=== PATIENT | female | born 1945 | race Caucasian/White ===

== ENCOUNTER 2016-05-24 16:29 | Emergency (ER) | payer MEDICARE, MEDICAID ==
[~2016-05-24] VITALS: Ht 167.6 cm; Wt 63.5 kg
[~2016-05-24 16:29] MED LIST: AML5T PO; IBUP400T21 PO; OMEP20TA44 PO
[2016-05-24 16:45] VITALS: BP 131/79
== END 2016-05-24 21:50 | disposition left against medical advice (07) ==
LOC: ER 16:32
DX: R10.84 Generalized abdominal pain (principal); R11.2 Nausea with vomiting, unspecified; Z53.21 Procedure and treatment not carried out due to patient leaving prior to being seen by health care provider
CPT/HCPCS: 36415; 93005

== ENCOUNTER 2017-02-28 01:18 | Emergency (ER) | payer MEDICARE, MEDICAID ==
[~2017-02-28] VITALS: Ht 167.6 cm; Wt 63.5 kg
[2017-02-28] MEDS ORDERED: ONDANSETRON HCL 4 MG/2 ML VIAL IV ONE ×2 (02:00→04:15)
[2017-02-28] MEDS ORDERED: cloNIDine HCL 0.1 MG TAB PO ONE (02:00)
[2017-02-28 02:14] LABS: Basophils # (auto) 0 uL; Basophils % (auto) 0.6 % (0.0-2.0); Eosinophils # (auto) 0.1 uL; Eosinophils % (auto) 1.7 % (0.0-7.0); Hematocrit 41.1 % (36.0-46.0); Lymphocytes # (auto) 1.1 uL; Lymphocytes % (auto) 21.6 % (10.0-50.0); Mean Corpuscular Hemoglobin 31.8 pg (28.0-32.0); Mean Corpuscular Volume 93.5 fL (80.0-100.0); Mean Platelet Volume 7.4 fL (6.9-10.8); Monocytes # (auto) 0.4 uL; Monocytes % (auto) 7.6 % (0.0-12.0); Neutrophils # (auto) 3.5 uL; Neutrophils % (auto) 68.5 % (37.0-80.0); Nucleated Red Blood Cells % 0.1 %; Platelet Count (auto) 228 10^3/uL (140-450); Red Cell Distribution Width 13.5 % (11.8-14.3); White Blood Cell 5.1 10^3/uL (4.4-10.8)
[2017-02-28] MEDS ORDERED: PROMETHAZINE HCL 25 MG/ML 1ML ONE (02:22)
[2017-02-28] MEDS ORDERED: PANTOPRAZOLE 40 MG/10 ML VIAL IV ONE (02:30)
[2017-02-28] MEDS ORDERED: PROMETHAZINE HCL 25 MG/ML 1ML IV ONE (02:30)
[2017-02-28 02:33] LABS: Albumin 3.7 g/dL (3.4-5.0); BUN/Creatinine Ratio 25.3; Calcium 9.5 mg/dL (8.5-10.1); Magnesium 2.3 mg/dL (1.6-2.6); Potassium 3.7 mmol/L (3.5-5.1)
[2017-02-28 02:38] LABS: Bilirubin, Total 0.3 mg/dL (0.2-1.0); Total Protein 7.8 g/dL (6.4-8.2)
[2017-02-28] MEDS ORDERED: NALBUPHINE HCL 10 MG/1ml INJECTION IV ONE (04:15)
[2017-02-28 04:19] LABS: Amylase 73 U/L (25-115)
[2017-02-28 04:22] VITALS: BP 131/76
== END 2017-02-28 05:40 | disposition home or self-care (01) ==
LOC: ER 01:19
DX: K29.70 Gastritis, unspecified, without bleeding (principal); F41.9 Anxiety disorder, unspecified; I10 Essential (primary) hypertension; Z90.710 Acquired absence of both cervix and uterus; Z90.89 Acquired absence of other organs; Z88.6 Allergy status to analgesic agent
CPT/HCPCS: 36415; 74176; 80053; 82150; 83690; 83735; 84484; 85025; 96374; 96375; 96376; 99285; C9113; J2300; J2405; J2550

== ENCOUNTER 2017-04-24 17:02 | Inpatient (IN) | payer MEDICARE, MEDICAID ==
[~2017-04-24] VITALS: Ht 167.6 cm; Wt 70.0 kg
[2017-04-24] MEDS ORDERED: SODIUM CHLORIDE 0.9% 500 ML IVB ONE (17:54)
[2017-04-24] MEDS ORDERED: ONDANSETRON HCL 4 MG/2 ML VIAL IV ONE ×2 (18:00→18:15)
[2017-04-24] MEDS ORDERED: MORPHINE SULF INJ 2 MG/ML SYRINGE 1ML IV ONE (18:15)
[2017-04-24] MEDS ORDERED: MEPERIDINE HCL (25 MG/ML) 1ML VIAL IV ONE (18:30)
[2017-04-24 18:59] LABS: Basophils # (auto) 0.1 uL; Basophils % (auto) 0.5 % (0.0-2.0); Eosinophils # (auto) 0 uL; Hematocrit 44.5 % (36.0-46.0); Lymphocytes # (auto) 0.7 uL; Lymphocytes % (auto) 5.5 % (10.0-50.0); Mean Corpuscular Hemoglobin 31.7 pg (28.0-32.0); Mean Corpuscular Hgb Conc. 33.8 g/dL (32.0-36.0); Mean Corpuscular Volume 93.9 fL (80.0-100.0); Monocytes # (auto) 0.7 uL; Monocytes % (auto) 5.6 % (0.0-12.0); Neutrophils # (auto) 10.6 uL; Neutrophils % (auto) 88.4 % (37.0-80.0); Nucleated Red Blood Cells % 0.1 %; Platelet Count (auto) 250 10^3/uL (140-450); Red Blood Cells 4.74 10^6/uL (4.0-5.20); Red Cell Distribution Width 13.7 % (11.8-14.3)
[2017-04-24 19:16] LABS: Amylase 69 U/L (25-115); Lipase 90 U/L (73-393)
[2017-04-24 19:38] LABS: Alanine Aminotransferase 33 U/L (13-56); Albumin 4.3 g/dL (3.4-5.0); Alkaline Phosphatase 84 U/L (45-117); Anion Gap 11 (5-15); Aspartate Aminotransferase 28 U/L (15-37); BUN/Creatinine Ratio 31.2; Bilirubin, Total 1.1 mg/dL (0.2-1.0); Blood Urea Nitrogen 29 mg/dL (7-18); Calcium 9.7 mg/dL (8.5-10.1); Carbon Dioxide 25 mmol/L (21-32); Chloride 96 mmol/L (98-107); GFR African American 76 mL/min; GFR Non-African American 63 mL/min; Glucose 153 mg/dL (74-106); Magnesium 2.5 mg/dL (1.6-2.6); Potassium 3.7 mmol/L (3.5-5.1); Sodium 132 mmol/L (136-145)
[2017-04-24 19:49] LABS: INR 1.01 (0.9-1.15); Partial Thromboplastin Time 27.8 sec (22.64-33.71)
[2017-04-24] MEDS ORDERED: TEMAZEPAM 15 MG CAP PO PRN (21:30)
[2017-04-24] MEDS ORDERED: NITROGLYCERIN 0.4 MG SL TAB SL PRN (21:30)
[2017-04-24] MEDS ORDERED: SODIUM CHLORIDE 0.9% 500 ML IV ONE (21:30)
[2017-04-24] MEDS ORDERED: MORPHINE SULF INJ 2 MG/ML SYRINGE 1ML IV PRN (21:30)
[2017-04-24] MEDS ORDERED: PANTOPRAZOLE 40 MG/10 ML VIAL IV ONE (21:30)
[2017-04-24] MEDS: MEPERIDINE HCL (25 MG/ML) 1ML VIAL IV PRN (21:46)
[2017-04-24] MEDS: ONDANSETRON HCL 4 MG/2 ML VIAL IV PRN (21:46)
[2017-04-24] MEDS: SODIUM CHLORIDE 0.9% 1,000 ML IV SCH (21:57)
[2017-04-24] MEDS: cloNIDine HCL 0.1 MG TAB PO PRN (21:57)
[2017-04-24 22:54] LABS: Urine Bacteria FEW /hpf (None Seen); Urine Blood Negative /uL (Negative); Urine Specific Gravity 1.015 (1.001-1.035); Urine WBC 2 /hpf (0 - 5)
[2017-04-24] MEDS ORDERED: LABETALOL HCL 5 MG/ML ML 20ML VIAL IV ONE (23:30)
[2017-04-25] VITALS (7 sets, daily range): BP systolic 166–208; BP diastolic 88–106
[2017-04-25] MEDS ORDERED: hydrALAZINE HCL 20 MG/ML VL IV ONE ×2 (01:15→06:30)
[2017-04-25] MEDS: ONDANSETRON HCL 4 MG/2 ML VIAL IV PRN ×5 (02:21→19:49)
[2017-04-25] MEDS: MEPERIDINE HCL (25 MG/ML) 1ML VIAL IV PRN ×5 (02:21→19:49)
[2017-04-25] MEDS: HYDROcodone-ACET 5/325MG TAB PO PRN ×2 (04:10→07:47)
[2017-04-25] MEDS: cloNIDine HCL 0.1 MG TAB PO PRN ×2 (04:35→10:26)
[2017-04-25 07:19] LABS: Basophils # (auto) 0 uL; Basophils % (auto) 0.2 % (0.0-2.0); Eosinophils # (auto) 0 uL; Hematocrit 42.2 % (36.0-46.0); Hemoglobin 14.5 g/dL (12.2-16.2); Lymphocytes # (auto) 0.6 uL; Lymphocytes % (auto) 6.2 % (10.0-50.0); Mean Corpuscular Hgb Conc. 34.3 g/dL (32.0-36.0); Mean Corpuscular Volume 93.3 fL (80.0-100.0); Monocytes # (auto) 0.4 uL; Monocytes % (auto) 4.5 % (0.0-12.0); Neutrophils # (auto) 8.1 uL; Neutrophils % (auto) 89.1 % (37.0-80.0); Platelet Count (auto) 227 10^3/uL (140-450); Red Blood Cells 4.52 10^6/uL (4.0-5.20); Red Cell Distribution Width 13.6 % (11.8-14.3); White Blood Cell 9.1 10^3/uL (4.4-10.8)
[2017-04-25 07:33] LABS: BUN/Creatinine Ratio 37.7; Bilirubin, Total 0.8 mg/dL (0.2-1.0); Calcium 9.3 mg/dL (8.5-10.1); Potassium 3.9 mmol/L (3.5-5.1); Total Protein 7.5 g/dL (6.4-8.2)
[2017-04-25] MEDS: SODIUM CHLORIDE 0.9% 1,000 ML IV SCH ×2 (09:03→14:55)
[2017-04-25] MEDS ORDERED: GASTROGRAFIN 120 ML SOL ONE ×2 (09:18→15:33)
[2017-04-25] MEDS: ENOXAPARIN SOD 40 MG/0.4 ML SYRINGE SC SCH (09:24)
[2017-04-25] MEDS: PANTOPRAZOLE 40 MG/10 ML VIAL IV SCH (09:25)
[2017-04-25] MEDS ORDERED: amLODIPine BESYLATE 5 MG TAB PO SCH (10:00)
[2017-04-25] MEDS ORDERED: MEPERIDINE HCL (25 MG/ML) 1ML VIAL IV ONE (11:30)
[2017-04-25] MEDS ORDERED: PROMETHAZINE HCL 25 MG/ML 1ML IV ONE (11:30)
[2017-04-25] MEDS ORDERED: LABETALOL HCL 5 MG/ML ML 20ML VIAL IV ONE (14:00)
[2017-04-25] MEDS: LABETALOL HCL 5 MG/ML ML 20ML VIAL IV PRN ×3 (16:35→22:51)
[2017-04-25] MEDS: PROMETHAZINE HCL 25 MG/ML 1ML IV PRN (18:03)
[2017-04-25] MEDS: LORazepam 2MG/ML-1ML VIAL IV PRN (22:26)
[2017-04-26 00:10] VITALS: BP 168/103
[2017-04-26] MEDS: MEPERIDINE HCL (25 MG/ML) 1ML VIAL IV PRN ×4 (01:23→21:04)
[2017-04-26] MEDS: PROMETHAZINE HCL 25 MG/ML 1ML IV PRN ×2 (01:23→09:00)
[2017-04-26 01:50] VITALS: BP 170/104
[2017-04-26] MEDS: SODIUM CHLORIDE 0.9% 1,000 ML IV SCH ×2 (02:30→16:25)
[2017-04-26] MEDS ORDERED: cloNIDine HCL 0.1 MG TAB PO ONE (02:45)
[2017-04-26] MEDS: LABETALOL HCL 5 MG/ML ML 20ML VIAL IV PRN ×4 (04:37→18:15)
[2017-04-26 05:00] VITALS: BP 129/75
[2017-04-26 05:53] LABS: Hematocrit 47.4 % (36.0-46.0); Hemoglobin 16.1 g/dL (12.2-16.2); Mean Corpuscular Hemoglobin 31.9 pg (28.0-32.0); Mean Corpuscular Hgb Conc. 34.1 g/dL (32.0-36.0); Mean Corpuscular Volume 93.8 fL (80.0-100.0); Platelet Count (auto) 264 10^3/uL (140-450); Red Blood Cells 5.05 10^6/uL (4.0-5.20); Red Cell Distribution Width 13.5 % (11.8-14.3); White Blood Cell 2.2 10^3/uL (4.4-10.8)
[2017-04-26 06:04] LABS: Band Neutrophils % (manual) 0; Basophils % (manual) 0 (0.0-2.0); Blast Cells 0; Eosinophils % (manual) 0 (0-7); Metamyelocytes % 0; Myelocytes % 0; Promyelocytes % 0; Reactive Lymphocytes 0
[2017-04-26 06:16] LABS: BUN/Creatinine Ratio 52.1; Calcium 9.1 mg/dL (8.5-10.1); Magnesium 2.9 mg/dL (1.6-2.6)
[2017-04-26 09:00] VITALS: BP 160/98
[2017-04-26] MEDS: PANTOPRAZOLE 40 MG/10 ML VIAL IV SCH (09:01)
[2017-04-26] MEDS ORDERED: GASTROGRAFIN 120 ML SOL ONE (09:01)
[2017-04-26] MEDS: ENOXAPARIN SOD 40 MG/0.4 ML SYRINGE SC SCH (09:01)
[2017-04-26] MEDS: ONDANSETRON HCL 4 MG/2 ML VIAL IV PRN ×2 (10:45→17:24)
[2017-04-26] MEDS: LORazepam 2MG/ML-1ML VIAL IV PRN ×2 (10:54→17:24)
[2017-04-26 11:33] LABS: Lymphocytes % (manual) 13 (10.0-50.0); Monocytes % (manual) 21 (0-12)
[2017-04-26 13:00] VITALS: BP 159/95
[2017-04-26 22:00] VITALS: BP 130/54
[2017-04-26] MEDS ORDERED: METOPROLOL TARTRATE 1MG/1ML-5ML VIAL IV ONE (22:30)
[2017-04-27] VITALS (9 sets, daily range): BP systolic 107–167; BP diastolic 61–87
[2017-04-27] MEDS: LORazepam 2MG/ML-1ML VIAL IV PRN (02:13)
[2017-04-27] MEDS: SODIUM CHLORIDE 0.9% 1,000 ML IV SCH (03:30)
[2017-04-27] MEDS: MEPERIDINE HCL (25 MG/ML) 1ML VIAL IV PRN ×2 (05:37→10:11)
[2017-04-27 06:33] LABS: Hematocrit 45.3 % (36.0-46.0); Hemoglobin 15.4 g/dL (12.2-16.2); Mean Corpuscular Hemoglobin 32.1 pg (28.0-32.0); Mean Corpuscular Volume 94.5 fL (80.0-100.0); Platelet Count (auto) 260 10^3/uL (140-450); Red Cell Distribution Width 14.1 % (11.8-14.3)
[2017-04-27 06:41] LABS: Calcium 9.1 mg/dL (8.5-10.1); Potassium 3.9 mmol/L (3.5-5.1)
[2017-04-27 06:45] LABS: Basophils % (manual) 0 (0.0-2.0); Blast Cells 0; Metamyelocytes % 0; Myelocytes % 0; Promyelocytes % 0; Reactive Lymphocytes 0
[2017-04-27 08:17] LABS: Band Neutrophils % (manual) 12; Eosinophils % (manual) 1 (0-7); Lymphocytes % (manual) 7 (10.0-50.0); Monocytes % (manual) 27 (0-12)
[2017-04-27] MEDS: ENOXAPARIN SOD 40 MG/0.4 ML SYRINGE SC SCH (10:10)
[2017-04-27] MEDS: PANTOPRAZOLE 40 MG/10 ML VIAL IV SCH (10:10)
[2017-04-27] MEDS ORDERED: fentaNYL CITRATE 100 MCG/2 ML VL ONE ×2 (11:09→13:22)
[2017-04-27] MEDS ORDERED: ETOMIDATE (2MG/ML) 20ML VIAL IV ONE (11:09)
[2017-04-27] MEDS ORDERED: HYDROmorphone HCL 2 MG/ML VL ONE ×2 (11:09→13:52)
[2017-04-27] MEDS ORDERED: MIDAZOLAM HCL 1MG/1ML-2 ML VIAL ONE (11:09)
[2017-04-27] MEDS ORDERED: ceFAZolin 1GM/50ML 50 ML IV ONE (12:45)
[2017-04-27] MEDS ORDERED: DEXAMETHASONE SOD PHOS 10MG/1ML VIAL INJ IV ONE (12:45)
[2017-04-27] MEDS ORDERED: ROCURONIUM 10MG/ML 10ML VIAL IV ONE (13:08)
[2017-04-27] MEDS ORDERED: D5W/SOD CHL 0.45%/KCL 20MEQ 1,000 ML IV ONE (14:15)
[2017-04-27] MEDS: SOD CHL 0.45% 1,000 ML IV SCH (14:15)
[2017-04-27] MEDS ORDERED: LABETALOL HCL 5 MG/ML 4ML SYRINGE IV PRN (14:30)
[2017-04-27] MEDS ORDERED: HYDROmorphone HCL 2 MG/ML VL IV PRN (14:30)
[2017-04-27] MEDS ORDERED: KETOROLAC TROMETH 30 MG/ML 1ML VIAL IV ONE (14:30)
[2017-04-27] MEDS ORDERED: MORPHINE SULF INJ 2 MG/ML SYRINGE 1ML IV PRN ×2 (14:30)
[2017-04-27] MEDS ORDERED: ePHEDrine SULFATE 50 MG/ML AMP IV PRN (14:30)
[2017-04-27] MEDS ORDERED: ONDANSETRON HCL 4 MG/2 ML VIAL IV ONE (14:30)
[2017-04-27] MEDS ORDERED: ALBUMIN 25% 50 ML IV ONE (14:46)
[2017-04-27] MEDS ORDERED: MORPHINE SULF INJ 2 MG/ML SYRINGE 1ML IV ONE (16:00)
[2017-04-27 17:36] LABS: Hematocrit 44.1 % (36.0-46.0); Hemoglobin 14.5 g/dL (12.2-16.2); Mean Corpuscular Hemoglobin 31.1 pg (28.0-32.0); Mean Corpuscular Hgb Conc. 32.9 g/dL (32.0-36.0); Mean Corpuscular Volume 94.5 fL (80.0-100.0); Platelet Count (auto) 166 10^3/uL (140-450); Red Blood Cells 4.67 10^6/uL (4.0-5.20); Red Cell Distribution Width 14.2 % (11.8-14.3); White Blood Cell 6.1 10^3/uL (4.4-10.8)
[2017-04-27 17:44] LABS: Basophils % (manual) 0 (0.0-2.0); Blast Cells 0; Eosinophils % (manual) 0 (0-7); Metamyelocytes % 0; Myelocytes % 0; Promyelocytes % 0; Reactive Lymphocytes 0
[2017-04-27 19:38] LABS: Band Neutrophils % (manual) 5; Lymphocytes % (manual) 17 (10.0-50.0); Monocytes % (manual) 12 (0-12)
[2017-04-27] MEDS: MIDAZOLAM HCL 1MG/1ML-2 ML VIAL IV PRN ×2 (20:30→20:50)
[2017-04-27] MEDS: ALBUMIN 25% 50 ML IV SCH (22:00)
[2017-04-27] MEDS: MIDAZOLAM DRIP 50 mg/50mL 50 ML IV SCH (23:07)
[2017-04-28] VITALS (44 sets, daily range): BP systolic 109–189; BP diastolic 50–98
[2017-04-28] MEDS: MIDAZOLAM DRIP 50 mg/50mL 50 ML IV SCH ×3 (02:39→20:00)
[2017-04-28] MEDS: SOD CHL 0.45% 1,000 ML IV SCH ×3 (03:35→23:40)
[2017-04-28 04:36] LABS: Basophils # (auto) 0 uL; Eosinophils # (auto) 0 uL; Hematocrit 34.1 % (36.0-46.0); Hemoglobin 11.6 g/dL (12.2-16.2); Lymphocytes # (auto) 0.3 uL; Mean Corpuscular Hemoglobin 31.9 pg (28.0-32.0); Mean Corpuscular Hgb Conc. 33.9 g/dL (32.0-36.0); Mean Corpuscular Volume 94.1 fL (80.0-100.0); Monocytes # (auto) 0.4 uL; Monocytes % (auto) 8.4 % (0.0-12.0); Neutrophils # (auto) 3.8 uL; Neutrophils % (auto) 85.6 % (37.0-80.0); Nucleated Red Blood Cells % 0.1 %; Platelet Count (auto) 179 10^3/uL (140-450); Red Blood Cells 3.63 10^6/uL (4.0-5.20); White Blood Cell 4.4 10^3/uL (4.4-10.8)
[2017-04-28 04:47] LABS: BUN/Creatinine Ratio 60.9; Calcium 8.3 mg/dL (8.5-10.1); Potassium 3.9 mmol/L (3.5-5.1)
[2017-04-28] MEDS: ALBUMIN 25% 50 ML IV SCH ×3 (05:27→22:09)
[2017-04-28] MEDS: ENOXAPARIN SOD 40 MG/0.4 ML SYRINGE SC SCH (10:11)
[2017-04-28] MEDS: PANTOPRAZOLE 40 MG/10 ML VIAL IV SCH (10:11)
[2017-04-28] MEDS ORDERED: MORPHINE SULFATE 4 MG/ML SYR/VIAL IV PRN (19:30)
[2017-04-28] MEDS: LABETALOL HCL 5 MG/ML ML 20ML VIAL IV PRN (20:49)
[2017-04-29] VITALS (89 sets, daily range): BP systolic 124–192; BP diastolic 8–95
[2017-04-29] MEDS: MIDAZOLAM DRIP 50 mg/50mL 50 ML IV SCH ×2 (00:22→21:59)
[2017-04-29] MEDS: LABETALOL HCL 5 MG/ML ML 20ML VIAL IV PRN ×3 (00:31→09:49)
[2017-04-29 04:14] LABS: Hematocrit 33.3 % (36.0-46.0); Hemoglobin 11.2 g/dL (12.2-16.2); Mean Corpuscular Hgb Conc. 33.8 g/dL (32.0-36.0); Mean Corpuscular Volume 94.7 fL (80.0-100.0); Platelet Count (auto) 180 10^3/uL (140-450); Red Blood Cells 3.51 10^6/uL (4.0-5.20); Red Cell Distribution Width 14.4 % (11.8-14.3); White Blood Cell 6.1 10^3/uL (4.4-10.8)
[2017-04-29 04:32] LABS: BUN/Creatinine Ratio 54.9; Calcium 8.7 mg/dL (8.5-10.1); Magnesium 2.8 mg/dL (1.6-2.6); Potassium 4.3 mmol/L (3.5-5.1)
[2017-04-29 05:26] LABS: Band Neutrophils % (manual) 0; Basophils % (manual) 0 (0.0-2.0); Blast Cells 0; Eosinophils % (manual) 0 (0-7); Metamyelocytes % 0; Myelocytes % 0; Promyelocytes % 0; Reactive Lymphocytes 0
[2017-04-29] MEDS: ALBUMIN 25% 50 ML IV SCH ×3 (05:57→21:02)
[2017-04-29] MEDS: PANTOPRAZOLE 40 MG/10 ML VIAL IV SCH (09:48)
[2017-04-29] MEDS: ENOXAPARIN SOD 40 MG/0.4 ML SYRINGE SC SCH (09:48)
[2017-04-29 09:50] LABS: Lymphocytes % (manual) 11 (10.0-50.0); Monocytes % (manual) 17 (0-12)
[2017-04-29] MEDS: fentaNYL Drip 2500mCg/250mlNS 250 ML IV SCH (10:00)
[2017-04-29] MEDS ORDERED: TPN PER PHARMACY 0 ML IV SCH (11:00)
[2017-04-29] MEDS ORDERED: FUROSEMIDE 40 MG/4 ML VIAL IV ONE (11:00)
[2017-04-29] MEDS ORDERED: SODIUM CHLORIDE 0.9% 1,000 ML IV SCH (11:00)
[2017-04-29] MEDS ORDERED: DEXTROSE (50%) 50ML SYRG IV SCH (11:30)
[2017-04-29] MEDS ORDERED: POTASSIUM PHOSP 22MEQ(15MMOLE) in NS 100 ML IV ONE (12:15)
[2017-04-29 12:35] LABS: Albumin 3.4 g/dL (3.4-5.0); Pre Albumin 10.9 mg/dL (20.0-40.0)
[2017-04-29] MEDS ORDERED: VANCOMYCIN 1GM/250ML 250 ML IV ONE (13:00)
[2017-04-29] MEDS: InsuLIN REG 1unit/0.01ml Soln (100units/ml) SC SCH ×2 (14:07→18:00)
[2017-04-29] MEDS: ACCU-CHEK COMFORT CURVE STRIP VI SCH ×2 (14:07→18:00)
[2017-04-29] MEDS: PIPERACILLIN-TAZOB 3.375GM 50 ML IV SCH ×2 (14:08→18:00)
[2017-04-29] MEDS: SOD CHL 0.45% WITH 20MEQ KCL 1,000 ML IV SCH (15:30)
[2017-04-29 15:43] LABS: INR 0.95 (0.9-1.15); Partial Thromboplastin Time 35.9 sec (22.64-33.71); Prothrombin Time 10.3 sec (9.37-12.3)
[2017-04-29] MEDS ORDERED: PPN PER PHARMACY IV NR ×9 (20:00)
[2017-04-30] VITALS (81 sets, daily range): BP systolic 106–200; BP diastolic 54–91
[2017-04-30] MEDS: PIPERACILLIN-TAZOB 3.375GM 50 ML IV SCH ×4 (00:23→17:33)
[2017-04-30] MEDS: ACCU-CHEK COMFORT CURVE STRIP VI SCH ×3 (00:24→17:34)
[2017-04-30] MEDS: InsuLIN REG 1unit/0.01ml Soln (100units/ml) SC SCH ×3 (00:24→17:34)
[2017-04-30 05:24] LABS: Hematocrit 29.4 % (36.0-46.0); Hemoglobin 9.9 g/dL (12.2-16.2); Mean Corpuscular Hgb Conc. 33.8 g/dL (32.0-36.0); Mean Corpuscular Volume 94.8 fL (80.0-100.0); Red Cell Distribution Width 14.1 % (11.8-14.3); White Blood Cell 4.9 10^3/uL (4.4-10.8)
[2017-04-30 05:27] LABS: Platelet Count (auto) 137 10^3/uL (140-450)
[2017-04-30 05:29] LABS: Band Neutrophils % (manual) 0; Basophils % (manual) 0 (0.0-2.0); Blast Cells 0; Metamyelocytes % 0; Myelocytes % 0; Promyelocytes % 0; Reactive Lymphocytes 0
[2017-04-30 05:33] LABS: Albumin 2.8 g/dL (3.4-5.0); BUN/Creatinine Ratio 42.2; Calcium 8.5 mg/dL (8.5-10.1); Magnesium 2.5 mg/dL (1.6-2.6); Potassium 4.4 mmol/L (3.5-5.1)
[2017-04-30 05:36] LABS: Bilirubin, Total 0.8 mg/dL (0.2-1.0); Total Protein 5.4 g/dL (6.4-8.2)
[2017-04-30 05:46] LABS: Phosphorus 1.3 mg/dL (2.5-4.90)
[2017-04-30 06:04] LABS: Eosinophils % (manual) 1 (0-7); Lymphocytes % (manual) 20 (10.0-50.0); Monocytes % (manual) 7 (0-12)
[2017-04-30] MEDS: SOD CHL 0.45% WITH 20MEQ KCL 1,000 ML IV SCH ×4 (06:10→20:00)
[2017-04-30] MEDS: MIDAZOLAM DRIP 50 mg/50mL 50 ML IV SCH ×3 (06:10→19:55)
[2017-04-30] MEDS ORDERED: fentaNYL Drip 2500mCg/250mlNS 250 ML IV ONE (06:11)
[2017-04-30] MEDS: ALBUMIN 25% 50 ML IV SCH ×3 (06:13→21:29)
[2017-04-30] MEDS: fentaNYL Drip 2500mCg/250mlNS 250 ML IV SCH (09:15)
[2017-04-30] MEDS ORDERED: SODIUM PHOSPHATES 40 MEQ in D5W 5% 250 ML IV ONE (10:15)
[2017-04-30] MEDS: ENOXAPARIN SOD 40 MG/0.4 ML SYRINGE SC SCH (10:21)
[2017-04-30] MEDS: PANTOPRAZOLE 40 MG/10 ML VIAL IV SCH (10:21)
[2017-04-30] MEDS ORDERED: TPN PER PHARMACY IV NR ×9 (20:00)
[2017-05-01] VITALS (78 sets, daily range): BP systolic 100–165; BP diastolic 48–94
[2017-05-01] MEDS: PIPERACILLIN-TAZOB 3.375GM 50 ML IV SCH ×5 (00:12→23:42)
[2017-05-01] MEDS: ACCU-CHEK COMFORT CURVE STRIP VI SCH ×5 (00:13→23:42)
[2017-05-01 03:56] LABS: Hematocrit 28.4 % (36.0-46.0); Hemoglobin 9.6 g/dL (12.2-16.2); Mean Corpuscular Hemoglobin 32.1 pg (28.0-32.0); Mean Corpuscular Hgb Conc. 33.7 g/dL (32.0-36.0); Mean Corpuscular Volume 95.1 fL (80.0-100.0); Platelet Count (auto) 120 10^3/uL (140-450); Red Blood Cells 2.99 10^6/uL (4.0-5.20); Red Cell Distribution Width 13.8 % (11.8-14.3); White Blood Cell 8.9 10^3/uL (4.4-10.8)
[2017-05-01 04:02] LABS: Band Neutrophils % (manual) 0; Basophils % (manual) 0 (0.0-2.0); Blast Cells 0; Eosinophils % (manual) 0 (0-7); Metamyelocytes % 0; Myelocytes % 0; Promyelocytes % 0; Reactive Lymphocytes 0
[2017-05-01] MEDS: MIDAZOLAM DRIP 50 mg/50mL 50 ML IV SCH ×2 (04:18→16:10)
[2017-05-01 04:43] LABS: Albumin 2.7 g/dL (3.4-5.0); BUN/Creatinine Ratio 23.4; Bilirubin, Total 1.2 mg/dL (0.2-1.0); Lymphocytes % (manual) 5 (10.0-50.0); Magnesium 2.3 mg/dL (1.6-2.6); Monocytes % (manual) 6 (0-12); Phosphorus 2.6 mg/dL (2.5-4.90); Potassium 4.6 mmol/L (3.5-5.1); Total Protein 5.4 g/dL (6.4-8.2)
[2017-05-01] MEDS: ALBUMIN 25% 50 ML IV SCH ×3 (06:06→21:36)
[2017-05-01] MEDS: InsuLIN REG 1unit/0.01ml Soln (100units/ml) SC SCH ×5 (06:07→23:42)
[2017-05-01] MEDS: SOD CHL 0.45% WITH 20MEQ KCL 1,000 ML IV SCH (08:35)
[2017-05-01] MEDS: fentaNYL Drip 2500mCg/250mlNS 250 ML IV SCH (09:15)
[2017-05-01] MEDS: PANTOPRAZOLE 40 MG/10 ML VIAL IV SCH (10:06)
[2017-05-01] MEDS: ENOXAPARIN SOD 40 MG/0.4 ML SYRINGE SC SCH (10:07)
[2017-05-01] MEDS: ENALAPRILAT 1.25 MG/ML-1ML VIAL IV PRN (12:45)
[2017-05-01] MEDS: ACETAMINOPHEN 325 MG TAB PO PRN (16:00)
[2017-05-01] MEDS ORDERED: SOD CHL 0.45% WITH 20MEQ KCL 1,000 ML IV SCH (20:00)
[2017-05-01] MEDS ORDERED: TPN PER PHARMACY IV NR ×10 (20:00)
[2017-05-02] VITALS (101 sets, daily range): BP systolic 103–192; BP diastolic 45–122
[2017-05-02] MEDS: ENALAPRILAT 1.25 MG/ML-1ML VIAL IV PRN ×2 (01:10→23:13)
[2017-05-02 04:02] LABS: Basophils # (auto) 0 uL; Basophils % (auto) 0.2 % (0.0-2.0); Eosinophils # (auto) 0.1 uL; Eosinophils % (auto) 0.9 % (0.0-7.0); Hemoglobin 9.8 g/dL (12.2-16.2); Lymphocytes # (auto) 0.5 uL; Lymphocytes % (auto) 4.2 % (10.0-50.0); Mean Corpuscular Hemoglobin 31.9 pg (28.0-32.0); Mean Corpuscular Hgb Conc. 33.7 g/dL (32.0-36.0); Mean Corpuscular Volume 94.9 fL (80.0-100.0); Monocytes # (auto) 0.7 uL; Monocytes % (auto) 6.5 % (0.0-12.0); Neutrophils # (auto) 9.5 uL; Neutrophils % (auto) 88.2 % (37.0-80.0); Platelet Count (auto) 135 10^3/uL (140-450); Red Blood Cells 3.06 10^6/uL (4.0-5.20); Red Cell Distribution Width 13.9 % (11.8-14.3); White Blood Cell 10.8 10^3/uL (4.4-10.8)
[2017-05-02 04:23] LABS: Albumin 2.6 g/dL (3.4-5.0); Bilirubin, Total 1.5 mg/dL (0.2-1.0); Calcium 8.2 mg/dL (8.5-10.1); Magnesium 2.3 mg/dL (1.6-2.6); Phosphorus 2.4 mg/dL (2.5-4.90); Potassium 4.6 mmol/L (3.5-5.1); Pre Albumin 5.5 mg/dL (20.0-40.0); Total Protein 5.6 g/dL (6.4-8.2)
[2017-05-02] MEDS: ACCU-CHEK COMFORT CURVE STRIP VI SCH ×4 (05:32→23:13)
[2017-05-02] MEDS: ALBUMIN 25% 50 ML IV SCH ×3 (05:32→21:31)
[2017-05-02] MEDS: InsuLIN REG 1unit/0.01ml Soln (100units/ml) SC SCH ×4 (05:32→23:16)
[2017-05-02] MEDS: PIPERACILLIN-TAZOB 3.375GM 50 ML IV SCH ×4 (05:32→23:12)
[2017-05-02] MEDS: PANTOPRAZOLE 40 MG/10 ML VIAL IV SCH (09:30)
[2017-05-02] MEDS: ENOXAPARIN SOD 40 MG/0.4 ML SYRINGE SC SCH (09:30)
[2017-05-02] MEDS ORDERED: SODIUM PHOSP 20MEQ(15MMOL) IN NS 100 ML IV ONE (11:00)
[2017-05-02] MEDS: fentaNYL Drip 2500mCg/250mlNS 250 ML IV SCH (11:00)
[2017-05-02] MEDS ORDERED: METOPROLOL SUCCINATE XL 50 MG TAB PO ONE (11:45)
[2017-05-02] MEDS ORDERED: VANCOMYCIN PER PHARMACY 0 MG IV SCH (11:45)
[2017-05-02] MEDS: SOD CHL 0.45% 1,000 ML IV SCH ×2 (13:18→21:32)
[2017-05-02] MEDS: VANCOMYCIN 1GM/250ML 250 ML IV SCH (15:00)
[2017-05-02] MEDS: ACETAMINOPHEN 325 MG TAB PO PRN (17:50)
[2017-05-02] MEDS: LEVOFLOXACIN 750MG 150 ML IV SCH (17:50)
[2017-05-02] MEDS ORDERED: TPN PER PHARMACY IV NR ×11 (20:00)
[2017-05-03] VITALS (88 sets, daily range): BP systolic 114–175; BP diastolic 52–103
[2017-05-03] MEDS: VANCOMYCIN 1GM/250ML 250 ML IV SCH (01:57)
[2017-05-03 02:01] LABS: Basophils # (auto) 0.1 uL; Basophils % (auto) 0.7 % (0.0-2.0); Eosinophils # (auto) 0.1 uL; Eosinophils % (auto) 1.5 % (0.0-7.0); Hematocrit 26.9 % (36.0-46.0); Lymphocytes # (auto) 0.4 uL; Lymphocytes % (auto) 3.9 % (10.0-50.0); Mean Corpuscular Hemoglobin 31.8 pg (28.0-32.0); Mean Corpuscular Hgb Conc. 33.4 g/dL (32.0-36.0); Monocytes # (auto) 0.4 uL; Monocytes % (auto) 4.6 % (0.0-12.0); Neutrophils # (auto) 8.2 uL; Neutrophils % (auto) 89.3 % (37.0-80.0); Platelet Count (auto) 136 10^3/uL (140-450); Red Blood Cells 2.84 10^6/uL (4.0-5.20); White Blood Cell 9.2 10^3/uL (4.4-10.8)
[2017-05-03 02:21] LABS: Albumin 2.6 g/dL (3.4-5.0); BUN/Creatinine Ratio 22.7; Calcium 8.4 mg/dL (8.5-10.1); Potassium 4.1 mmol/L (3.5-5.1)
[2017-05-03 02:24] LABS: Total Protein 5.5 g/dL (6.4-8.2)
[2017-05-03] MEDS: LABETALOL HCL 5 MG/ML ML 20ML VIAL IV PRN ×3 (02:30→20:50)
[2017-05-03] MEDS: fentaNYL Drip 2500mCg/250mlNS 250 ML IV SCH (02:30)
[2017-05-03] MEDS: ACETAMINOPHEN 325 MG TAB PO PRN ×2 (04:03→14:58)
[2017-05-03] MEDS: PIPERACILLIN-TAZOB 3.375GM 50 ML IV SCH ×3 (05:30→18:12)
[2017-05-03] MEDS: ACCU-CHEK COMFORT CURVE STRIP VI SCH ×3 (05:30→18:12)
[2017-05-03] MEDS: ALBUMIN 25% 50 ML IV SCH ×3 (05:30→22:00)
[2017-05-03] MEDS: InsuLIN REG 1unit/0.01ml Soln (100units/ml) SC SCH ×2 (05:33→11:54)
[2017-05-03] MEDS: SOD CHL 0.45% 1,000 ML IV SCH ×3 (05:33→21:00)
[2017-05-03] MEDS ORDERED: METOPROLOL SUCCINATE XL 50 MG TAB PO SCH (10:00)
[2017-05-03] MEDS: ENOXAPARIN SOD 40 MG/0.4 ML SYRINGE SC SCH (10:22)
[2017-05-03] MEDS: PANTOPRAZOLE 40 MG/10 ML VIAL IV SCH (10:22)
[2017-05-03 11:31] LABS: Urine Bacteria NONE SEEN /hpf (None Seen); Urine Blood TRACE /uL (Negative); Urine Specific Gravity 1.006 (1.001-1.035); Urine WBC 3 /hpf (0 - 5)
[2017-05-03] MEDS ORDERED: METOPROLOL TARTRATE 25 MG TAB PO ONE (13:15)
[2017-05-03] MEDS ORDERED: FLUCONAZOLE 200MG/100ML 100 ML IV ONE (13:15)
[2017-05-03] MEDS ORDERED: FLORASTOR (S. BOULARDII) 250 MG CAP PO ONE (13:16)
[2017-05-03] MEDS ORDERED: ceFAZolin 1GM 2 GM in D5W 5% 100 ML IV SCH (14:00)
[2017-05-03] MEDS: MIDAZOLAM DRIP 50 mg/50mL 50 ML IV SCH (14:15)
[2017-05-03] MEDS: LEVOFLOXACIN 750MG 150 ML IV SCH (16:33)
[2017-05-03] MEDS ORDERED: TPN PER PHARMACY IV NR ×11 (20:00)
[2017-05-03] MEDS: METOPROLOL TARTRATE 25 MG TAB PO SCH (22:00)
[2017-05-04] VITALS (85 sets, daily range): BP systolic 102–188; BP diastolic 43–97
[2017-05-04 03:39] LABS: Basophils # (auto) 0 uL; Basophils % (auto) 0.2 % (0.0-2.0); Eosinophils # (auto) 0.1 uL; Eosinophils % (auto) 0.5 % (0.0-7.0); Hematocrit 27.3 % (36.0-46.0); Lymphocytes # (auto) 0.4 uL; Mean Corpuscular Hemoglobin 31.1 pg (28.0-32.0); Mean Corpuscular Hgb Conc. 32.9 g/dL (32.0-36.0); Mean Corpuscular Volume 94.6 fL (80.0-100.0); Monocytes # (auto) 0.7 uL; Monocytes % (auto) 4.9 % (0.0-12.0); Neutrophils # (auto) 12.3 uL; Neutrophils % (auto) 91.4 % (37.0-80.0); Platelet Count (auto) 182 10^3/uL (140-450); Red Blood Cells 2.88 10^6/uL (4.0-5.20); Red Cell Distribution Width 13.9 % (11.8-14.3); White Blood Cell 13.5 10^3/uL (4.4-10.8)
[2017-05-04 03:59] LABS: Albumin 2.5 g/dL (3.4-5.0); BUN/Creatinine Ratio 23.5; Calcium 8.6 mg/dL (8.5-10.1); Magnesium 1.7 mg/dL (1.6-2.6); Potassium 4.1 mmol/L (3.5-5.1)
[2017-05-04 04:03] LABS: Total Protein 5.5 g/dL (6.4-8.2)
[2017-05-04] MEDS: SOD CHL 0.45% 1,000 ML IV SCH ×3 (05:17→21:00)
[2017-05-04] MEDS: ALBUMIN 25% 50 ML IV SCH (05:18)
[2017-05-04] MEDS: PIPERACILLIN-TAZOB 3.375GM 50 ML IV SCH ×4 (06:00→17:35)
[2017-05-04] MEDS: ACCU-CHEK COMFORT CURVE STRIP VI SCH ×4 (06:00→17:34)
[2017-05-04] MEDS: InsuLIN REG 1unit/0.01ml Soln (100units/ml) SC SCH ×4 (06:00→17:34)
[2017-05-04] MEDS: fentaNYL Drip 2500mCg/250mlNS 250 ML IV SCH (09:15)
[2017-05-04] MEDS ORDERED: MAGNESIUM SULFATE 1GM/100ML 100 ML IV ONE (09:30)
[2017-05-04] MEDS: FLUCONAZOLE 200MG/100ML 100 ML IV SCH (09:59)
[2017-05-04] MEDS: FLORASTOR (S. BOULARDII) 250 MG CAP PO SCH (09:59)
[2017-05-04] MEDS: PANTOPRAZOLE 40 MG/10 ML VIAL IV SCH (09:59)
[2017-05-04] MEDS: METOPROLOL TARTRATE 25 MG TAB PO SCH ×2 (10:00→21:59)
[2017-05-04] MEDS: ENOXAPARIN SOD 40 MG/0.4 ML SYRINGE SC SCH (10:00)
[2017-05-04] MEDS ORDERED: IOHEXOL 300 MG/ML 100ML BOTTLE IJ ONE (13:02)
[2017-05-04] MEDS: LORazepam 2MG/ML-1ML VIAL IV PRN (13:21)
[2017-05-04] MEDS ORDERED: ACETAMINOPHEN 650 MG RECT SUPP PR ONE (14:13)
[2017-05-04] MEDS: LEVOFLOXACIN 750MG 150 ML IV SCH (15:11)
[2017-05-04] MEDS ORDERED: TPN PER PHARMACY IV NR ×11 (20:00)
[2017-05-04] MEDS: ACETAMINOPHEN 325 MG TAB PO PRN (21:59)
[2017-05-05] VITALS (79 sets, daily range): BP systolic 79–169; BP diastolic 32–85
[2017-05-05] MEDS: ACCU-CHEK COMFORT CURVE STRIP VI SCH ×4 (00:19→17:51)
[2017-05-05] MEDS: PIPERACILLIN-TAZOB 3.375GM 50 ML IV SCH ×4 (00:25→17:51)
[2017-05-05] MEDS: fentaNYL Drip 2500mCg/250mlNS 250 ML IV SCH ×2 (01:15→10:00)
[2017-05-05 03:46] LABS: Basophils # (auto) 0.1 uL; Basophils % (auto) 0.7 % (0.0-2.0); Eosinophils # (auto) 0.2 uL; Eosinophils % (auto) 1.2 % (0.0-7.0); Hematocrit 26.7 % (36.0-46.0); Lymphocytes # (auto) 0.4 uL; Lymphocytes % (auto) 2.7 % (10.0-50.0); Mean Corpuscular Hemoglobin 31.6 pg (28.0-32.0); Mean Corpuscular Hgb Conc. 33.5 g/dL (32.0-36.0); Mean Corpuscular Volume 94.3 fL (80.0-100.0); Monocytes # (auto) 0.7 uL; Monocytes % (auto) 4.8 % (0.0-12.0); Neutrophils # (auto) 12.4 uL; Neutrophils % (auto) 90.6 % (37.0-80.0); Platelet Count (auto) 203 10^3/uL (140-450); Red Blood Cells 2.83 10^6/uL (4.0-5.20); Red Cell Distribution Width 14.3 % (11.8-14.3); White Blood Cell 13.7 10^3/uL (4.4-10.8)
[2017-05-05 04:10] LABS: Albumin 2.3 g/dL (3.4-5.0); Calcium 8.6 mg/dL (8.5-10.1); Magnesium 2.2 mg/dL (1.6-2.6)
[2017-05-05 04:13] LABS: BUN/Creatinine Ratio 31.3
[2017-05-05 04:16] LABS: Total Protein 5.5 g/dL (6.4-8.2)
[2017-05-05 04:47] LABS: Phosphorus 3.8 mg/dL (2.5-4.90)
[2017-05-05] MEDS: SOD CHL 0.45% 1,000 ML IV SCH (05:00)
[2017-05-05] MEDS: InsuLIN REG 1unit/0.01ml Soln (100units/ml) SC SCH ×4 (06:01→17:51)
[2017-05-05] MEDS: METOPROLOL TARTRATE 25 MG TAB PO SCH ×2 (08:30→22:35)
[2017-05-05] MEDS: LABETALOL HCL 5 MG/ML ML 20ML VIAL IV PRN (08:49)
[2017-05-05] MEDS ORDERED: FUROSEMIDE 40 MG/4 ML VIAL IV ONE (09:30)
[2017-05-05] MEDS: ENOXAPARIN SOD 40 MG/0.4 ML SYRINGE SC SCH (09:32)
[2017-05-05] MEDS: FLUCONAZOLE 200MG/100ML 100 ML IV SCH (09:32)
[2017-05-05] MEDS: PANTOPRAZOLE 40 MG/10 ML VIAL IV SCH (09:32)
[2017-05-05] MEDS: SODIUM CHLORIDE 0.9% 1,000 ML IV SCH ×2 (09:32→22:50)
[2017-05-05] MEDS: FLORASTOR (S. BOULARDII) 250 MG CAP PO SCH (09:32)
[2017-05-05] MEDS: ACETAMINOPHEN 650 mg PER 20 mL UD PO PRN ×2 (10:00→22:35)
[2017-05-05] MEDS: metroNIDAZOLE 500MG/100ML 100 ML IV SCH ×2 (11:42→17:09)
[2017-05-05] MEDS ORDERED: SODIUM CHLORIDE 0.9% 250 ML IV ONE (12:00)
[2017-05-05] MEDS: LEVOFLOXACIN 750MG 150 ML IV SCH (15:16)
[2017-05-05] MEDS ORDERED: TPN PER PHARMACY IV NR ×11 (20:00)
[2017-05-05] MEDS: MIDAZOLAM DRIP 50 mg/50mL 50 ML IV SCH (20:00)
[2017-05-06] VITALS (105 sets, daily range): BP systolic 115–193; BP diastolic 47–108
[2017-05-06 03:54] LABS: Basophils # (auto) 0 uL; Basophils % (auto) 0.2 % (0.0-2.0); Eosinophils # (auto) 0.1 uL; Eosinophils % (auto) 1.1 % (0.0-7.0); Hematocrit 25.7 % (36.0-46.0); Hemoglobin 8.6 g/dL (12.2-16.2); Lymphocytes # (auto) 0.2 uL; Lymphocytes % (auto) 1.8 % (10.0-50.0); Mean Corpuscular Hemoglobin 31.8 pg (28.0-32.0); Mean Corpuscular Hgb Conc. 33.6 g/dL (32.0-36.0); Mean Corpuscular Volume 94.6 fL (80.0-100.0); Monocytes # (auto) 0.6 uL; Monocytes % (auto) 5.4 % (0.0-12.0); Neutrophils # (auto) 10.2 uL; Neutrophils % (auto) 91.5 % (37.0-80.0); Platelet Count (auto) 224 10^3/uL (140-450); Red Blood Cells 2.71 10^6/uL (4.0-5.20); Red Cell Distribution Width 14.5 % (11.8-14.3); White Blood Cell 11.1 10^3/uL (4.4-10.8)
[2017-05-06 04:20] LABS: Albumin 1.9 g/dL (3.4-5.0); BUN/Creatinine Ratio 30.3; Bilirubin, Total 1.9 mg/dL (0.2-1.0); Calcium 8.2 mg/dL (8.5-10.1); Magnesium 2.6 mg/dL (1.6-2.6); Phosphorus 3.9 mg/dL (2.5-4.90); Pre Albumin 3.4 mg/dL (20.0-40.0); Total Protein 5.3 g/dL (6.4-8.2)
[2017-05-06] MEDS: ACETAMINOPHEN 650 mg PER 20 mL UD PO PRN ×2 (04:50→20:35)
[2017-05-06] MEDS: InsuLIN REG 1unit/0.01ml Soln (100units/ml) SC SCH ×5 (06:00→23:35)
[2017-05-06] MEDS: metroNIDAZOLE 500MG/100ML 100 ML IV SCH ×5 (06:10→23:08)
[2017-05-06] MEDS: PIPERACILLIN-TAZOB 3.375GM 50 ML IV SCH ×4 (06:10→18:00)
[2017-05-06] MEDS: ACCU-CHEK COMFORT CURVE STRIP VI SCH ×5 (06:10→23:08)
[2017-05-06] MEDS: MIDAZOLAM DRIP 50 mg/50mL 50 ML IV SCH (09:10)
[2017-05-06] MEDS: PANTOPRAZOLE 40 MG/10 ML VIAL IV SCH (10:00)
[2017-05-06] MEDS: FLUCONAZOLE 200MG/100ML 100 ML IV SCH (10:00)
[2017-05-06] MEDS: METOPROLOL TARTRATE 25 MG TAB PO SCH ×2 (10:00→21:46)
[2017-05-06] MEDS: FLORASTOR (S. BOULARDII) 250 MG CAP PO SCH (10:00)
[2017-05-06] MEDS: ENOXAPARIN SOD 40 MG/0.4 ML SYRINGE SC SCH (10:00)
[2017-05-06 11:37] LABS: INR 1.16 (0.9-1.15); Prothrombin Time 12.7 sec (9.37-12.3)
[2017-05-06] MEDS: SODIUM CHLORIDE 0.9% 1,000 ML IV SCH (15:00)
[2017-05-06] MEDS: LEVOFLOXACIN 750MG 150 ML IV SCH (15:00)
[2017-05-06] MEDS ORDERED: LIDOCAINE 1% HCL (LOCAL ANESTH.) INJ 20ML MDV ID ONE (15:15)
[2017-05-06] MEDS ORDERED: DILTIAZEM HCL 25 MG/5 ML VIAL IV ONE (17:42)
[2017-05-06] MEDS ORDERED: DILTIAZEM 125mg/125ml BAG KIT 125 ML IV SCH (18:00)
[2017-05-06] MEDS ORDERED: TPN PER PHARMACY IV NR ×10 (20:00)
[2017-05-06] MEDS: SODIUM CHLOR 0.9% PF (SALINE LOCK) 10ML VIAL IV SCH (21:46)
[2017-05-07] VITALS (90 sets, daily range): BP systolic 104–196; BP diastolic 48–116
[2017-05-07] MEDS: SODIUM CHLORIDE 0.9% 1,000 ML IV SCH ×2 (01:30→15:06)
[2017-05-07] MEDS: LABETALOL HCL 5 MG/ML ML 20ML VIAL IV PRN ×3 (01:55→09:21)
[2017-05-07] MEDS: IPRATROPIUM BROM 0.5 MG/2.5ML INH SOL NEB SCH ×6 (02:07→21:57)
[2017-05-07] MEDS: ALBUTEROL SULF 2.5 MG/0.5ML(0.5%) NEB SOLN NEB SCH ×6 (02:07→21:57)
[2017-05-07] MEDS: ACETAMINOPHEN 650 mg PER 20 mL UD PO PRN (04:19)
[2017-05-07 04:36] LABS: Basophils # (auto) 0 uL; Basophils % (auto) 0.4 % (0.0-2.0); Eosinophils # (auto) 0.1 uL; Hematocrit 25.4 % (36.0-46.0); Hemoglobin 8.5 g/dL (12.2-16.2); Lymphocytes # (auto) 0.4 uL; Lymphocytes % (auto) 4.8 % (10.0-50.0); Mean Corpuscular Hemoglobin 31.2 pg (28.0-32.0); Mean Corpuscular Hgb Conc. 33.5 g/dL (32.0-36.0); Mean Corpuscular Volume 93.1 fL (80.0-100.0); Monocytes # (auto) 0.5 uL; Monocytes % (auto) 6.8 % (0.0-12.0); Neutrophils # (auto) 6.9 uL; Platelet Count (auto) 275 10^3/uL (140-450); Red Blood Cells 2.73 10^6/uL (4.0-5.20); Red Cell Distribution Width 15.3 % (11.8-14.3); White Blood Cell 7.9 10^3/uL (4.4-10.8)
[2017-05-07 05:04] LABS: Albumin 1.9 g/dL (3.4-5.0); BUN/Creatinine Ratio 36.4; Bilirubin, Total 2.2 mg/dL (0.2-1.0); Calcium 8.3 mg/dL (8.5-10.1); Magnesium 2.5 mg/dL (1.6-2.6); Phosphorus 2.7 mg/dL (2.5-4.90); Potassium 3.4 mmol/L (3.5-5.1); Total Protein 5.4 g/dL (6.4-8.2)
[2017-05-07] MEDS: metroNIDAZOLE 500MG/100ML 100 ML IV SCH ×3 (05:35→20:23)
[2017-05-07] MEDS: PIPERACILLIN-TAZOB 3.375GM 50 ML IV SCH ×4 (06:26→17:51)
[2017-05-07] MEDS: InsuLIN REG 1unit/0.01ml Soln (100units/ml) SC SCH ×4 (06:27→23:42)
[2017-05-07] MEDS: ACCU-CHEK COMFORT CURVE STRIP VI SCH ×4 (06:27→23:42)
[2017-05-07] MEDS ORDERED: fentaNYL Drip 2500mCg/250mlNS 250 ML IV SCH (09:15)
[2017-05-07] MEDS: ENOXAPARIN SOD 40 MG/0.4 ML SYRINGE SC SCH (09:36)
[2017-05-07] MEDS: PANTOPRAZOLE 40 MG/10 ML VIAL IV SCH (09:36)
[2017-05-07] MEDS: FLORASTOR (S. BOULARDII) 250 MG CAP PO SCH (09:36)
[2017-05-07] MEDS: METOPROLOL TARTRATE 25 MG TAB PO SCH (09:36)
[2017-05-07] MEDS: SODIUM CHLOR 0.9% PF (SALINE LOCK) 10ML VIAL IV SCH ×2 (09:36→22:00)
[2017-05-07] MEDS: FLUCONAZOLE 200MG/100ML 100 ML IV SCH (09:36)
[2017-05-07] MEDS ORDERED: MORPHINE SULFATE 4 MG/ML SYR/VIAL IV PRN (10:15)
[2017-05-07] MEDS ORDERED: SODIUM CHLORIDE 0.9% 1,000 ML IV SCH ×2 (10:15)
[2017-05-07] MEDS ORDERED: ONDANSETRON HCL 4 MG/2 ML VIAL IV PRN (10:15)
[2017-05-07] MEDS: MIDAZOLAM DRIP 50 mg/50mL 50 ML IV SCH (10:26)
[2017-05-07] MEDS ORDERED: ENALAPRILAT 1.25 MG/ML-1ML VIAL IV PRN (10:30)
[2017-05-07] MEDS ORDERED: ALBUMIN 25% 100 ML IV ONE (10:30)
[2017-05-07] MEDS ORDERED: FUROSEMIDE 20 MG/2 ML VIAL IV ONE (10:30)
[2017-05-07] MEDS: POTASSIUM CHL 20MEQ/100ML 100 ML IV SCH ×2 (10:40→11:45)
[2017-05-07] MEDS ORDERED: METOPROLOL TARTRATE 25 MG TAB PO ONE (11:00)
[2017-05-07] MEDS: MORPHINE SULFATE 4 MG/ML SYR/VIAL IV PRN (12:31)
[2017-05-07] MEDS: LEVOFLOXACIN 750MG 150 ML IV SCH (15:06)
[2017-05-07] MEDS ORDERED: NITROGLYCERIN 50MG/250ML 250 ML IV ONE (16:05)
[2017-05-07] MEDS ORDERED: NITROGLYCERIN 50MG/250ML 250 ML IV SCH (16:15)
[2017-05-07] MEDS ORDERED: NICARDIPINE 25MG/250ML BAG KIT 250 ML IV ONE (16:19)
[2017-05-07] MEDS: NICARDIPINE 25MG/250ML BAG KIT 250 ML IV SCH ×2 (16:23→21:30)
[2017-05-07] MEDS: DEXMEDETOMIDINE HCL 400 MCG in D5W 5% 96 ML IV SCH (17:25)
[2017-05-07] MEDS ORDERED: TPN PER PHARMACY IV NR ×10 (20:00)
[2017-05-07] MEDS: METOPROLOL TARTRATE 50 MG TAB PO SCH (22:00)
[2017-05-08] VITALS (91 sets, daily range): BP systolic 92–178; BP diastolic 40–259
[2017-05-08] MEDS: PIPERACILLIN-TAZOB 3.375GM 50 ML IV SCH ×4 (01:31→18:00)
[2017-05-08] MEDS: MORPHINE SULFATE 4 MG/ML SYR/VIAL IV PRN ×3 (01:31→17:09)
[2017-05-08] MEDS: metroNIDAZOLE 500MG/100ML 100 ML IV SCH ×4 (01:32→20:15)
[2017-05-08] MEDS: ALBUTEROL SULF 2.5 MG/0.5ML(0.5%) NEB SOLN NEB SCH ×5 (02:01→23:00)
[2017-05-08] MEDS: IPRATROPIUM BROM 0.5 MG/2.5ML INH SOL NEB SCH ×6 (02:01→23:00)
[2017-05-08] MEDS: DEXMEDETOMIDINE HCL 400 MCG in D5W 5% 96 ML IV SCH (02:40)
[2017-05-08] MEDS: NICARDIPINE 25MG/250ML BAG KIT 250 ML IV SCH ×6 (02:41→22:30)
[2017-05-08 04:56] LABS: Basophils # (auto) 0 uL; Eosinophils # (auto) 0.1 uL; Hemoglobin 7.9 g/dL (12.2-16.2); Lymphocytes # (auto) 0.4 uL; Mean Corpuscular Volume 92.5 fL (80.0-100.0); White Blood Cell 6.2 10^3/uL (4.4-10.8)
[2017-05-08 04:59] LABS: Basophils % (auto) 0.6 % (0.0-2.0); Eosinophils % (auto) 1.9 % (0.0-7.0); Lymphocytes % (auto) 6.6 % (10.0-50.0); Mean Corpuscular Hemoglobin 31.8 pg (28.0-32.0); Mean Corpuscular Hgb Conc. 34.4 g/dL (32.0-36.0); Monocytes # (auto) 0.5 uL; Monocytes % (auto) 7.5 % (0.0-12.0); Neutrophils # (auto) 5.1 uL; Neutrophils % (auto) 83.4 % (37.0-80.0); Platelet Count (auto) 244 10^3/uL (140-450); Red Blood Cells 2.48 10^6/uL (4.0-5.20); Red Cell Distribution Width 15.3 % (11.8-14.3)
[2017-05-08 05:01] LABS: Albumin 1.9 g/dL (3.4-5.0); BUN/Creatinine Ratio 34.8; Bilirubin, Total 1.8 mg/dL (0.2-1.0); Calcium 8.2 mg/dL (8.5-10.1); Magnesium 2.4 mg/dL (1.6-2.6); Phosphorus 3.3 mg/dL (2.5-4.90); Potassium 3.4 mmol/L (3.5-5.1); Total Protein 5.3 g/dL (6.4-8.2)
[2017-05-08] MEDS: InsuLIN REG 1unit/0.01ml Soln (100units/ml) SC SCH ×3 (06:12→18:00)
[2017-05-08] MEDS: ACCU-CHEK COMFORT CURVE STRIP VI SCH ×3 (06:12→18:00)
[2017-05-08] MEDS: PANTOPRAZOLE 40 MG/10 ML VIAL IV SCH (10:26)
[2017-05-08] MEDS: FLUCONAZOLE 200MG/100ML 100 ML IV SCH (10:26)
[2017-05-08] MEDS: FLORASTOR (S. BOULARDII) 250 MG CAP PO SCH (10:26)
[2017-05-08] MEDS: SODIUM CHLOR 0.9% PF (SALINE LOCK) 10ML VIAL IV SCH ×2 (10:26→21:49)
[2017-05-08] MEDS: ENOXAPARIN SOD 40 MG/0.4 ML SYRINGE SC SCH (10:27)
[2017-05-08] MEDS: METOPROLOL TARTRATE 50 MG TAB PO SCH ×2 (10:27→21:49)
[2017-05-08] MEDS ORDERED: FUROSEMIDE 20 MG/2 ML VIAL IV ONE (10:45)
[2017-05-08] MEDS: POTASSIUM CHL 20MEQ/100ML 100 ML IV SCH ×2 (10:50→11:50)
[2017-05-08] MEDS: LEVOFLOXACIN 750MG 150 ML IV SCH (15:30)
[2017-05-08] MEDS: SODIUM CHLORIDE 0.9% 1,000 ML IV SCH (15:30)
[2017-05-08] MEDS ORDERED: METOPROLOL TARTRATE 50 MG TAB ONE (18:24)
[2017-05-08] MEDS ORDERED: DIGOXIN (250MCG/ML) 2 ML AMPULE ONE (18:27)
[2017-05-08] MEDS: DIGOXIN (250MCG/ML) 2 ML AMPULE IV SCH (18:33)
[2017-05-08 19:02] LABS: Basophils # (auto) 0 uL; Basophils % (auto) 0.6 % (0.0-2.0); Eosinophils # (auto) 0.2 uL; Hematocrit 36.4 % (36.0-46.0); Hemoglobin 12.2 g/dL (12.2-16.2); Lymphocytes # (auto) 0.6 uL; Lymphocytes % (auto) 7.6 % (10.0-50.0); Mean Corpuscular Hemoglobin 30.2 pg (28.0-32.0); Mean Corpuscular Hgb Conc. 33.4 g/dL (32.0-36.0); Mean Corpuscular Volume 90.4 fL (80.0-100.0); Monocytes # (auto) 0.7 uL; Monocytes % (auto) 9.4 % (0.0-12.0); Neutrophils # (auto) 6.3 uL; Neutrophils % (auto) 80.4 % (37.0-80.0); Platelet Count (auto) 319 10^3/uL (140-450); Red Blood Cells 4.03 10^6/uL (4.0-5.20); Red Cell Distribution Width 15.8 % (11.8-14.3); White Blood Cell 7.8 10^3/uL (4.4-10.8)
[2017-05-08] MEDS ORDERED: TPN PER PHARMACY IV NR ×11 (20:00)
[2017-05-08] MEDS: LORazepam 2MG/ML-1ML VIAL IV PRN (20:25)
[2017-05-09] VITALS (95 sets, daily range): BP systolic 105–188; BP diastolic 44–75
[2017-05-09] MEDS: ACCU-CHEK COMFORT CURVE STRIP VI SCH ×4 (00:30→17:51)
[2017-05-09] MEDS: InsuLIN REG 1unit/0.01ml Soln (100units/ml) SC SCH ×4 (00:30→18:44)
[2017-05-09] MEDS: PIPERACILLIN-TAZOB 3.375GM 50 ML IV SCH ×4 (00:30→17:52)
[2017-05-09] MEDS: NICARDIPINE 25MG/250ML BAG KIT 250 ML IV SCH ×6 (00:30→23:30)
[2017-05-09] MEDS: DIGOXIN (250MCG/ML) 2 ML AMPULE IV SCH ×5 (00:52→18:45)
[2017-05-09] MEDS: metroNIDAZOLE 500MG/100ML 100 ML IV SCH ×4 (02:03→20:00)
[2017-05-09] MEDS: ALBUTEROL SULF 2.5 MG/0.5ML(0.5%) NEB SOLN NEB SCH ×6 (02:20→22:03)
[2017-05-09] MEDS: IPRATROPIUM BROM 0.5 MG/2.5ML INH SOL NEB SCH ×6 (02:20→22:03)
[2017-05-09 04:14] LABS: Hematocrit 36.2 % (36.0-46.0); Mean Corpuscular Hemoglobin 30.1 pg (28.0-32.0); Mean Corpuscular Hgb Conc. 33.2 g/dL (32.0-36.0); Mean Corpuscular Volume 90.7 fL (80.0-100.0); Platelet Count (auto) 325 10^3/uL (140-450); Red Cell Distribution Width 16.2 % (11.8-14.3); White Blood Cell 9.3 10^3/uL (4.4-10.8)
[2017-05-09 04:31] LABS: Basophils % (manual) 0 (0.0-2.0); Blast Cells 0; Myelocytes % 0; Promyelocytes % 0; Reactive Lymphocytes 0
[2017-05-09 04:32] LABS: Albumin 2.3 g/dL (3.4-5.0); BUN/Creatinine Ratio 32.4; Calcium 8.7 mg/dL (8.5-10.1); Potassium 4.1 mmol/L (3.5-5.1)
[2017-05-09 04:34] LABS: Bilirubin, Total 2.1 mg/dL (0.2-1.0); Total Protein 6.3 g/dL (6.4-8.2)
[2017-05-09 04:44] LABS: Phosphorus 2.9 mg/dL (2.5-4.90)
[2017-05-09] MEDS: LABETALOL HCL 5 MG/ML ML 20ML VIAL IV PRN (04:50)
[2017-05-09 06:41] LABS: Band Neutrophils % (manual) 1; Eosinophils % (manual) 1 (0-7); Lymphocytes % (manual) 7 (10.0-50.0); Metamyelocytes % 2; Monocytes % (manual) 7 (0-12)
[2017-05-09] MEDS: SODIUM CHLOR 0.9% PF (SALINE LOCK) 10ML VIAL IV SCH ×2 (10:07→22:06)
[2017-05-09] MEDS: METOPROLOL TARTRATE 50 MG TAB PO SCH ×2 (10:17→22:07)
[2017-05-09] MEDS: PANTOPRAZOLE 40 MG/10 ML VIAL IV SCH (10:17)
[2017-05-09] MEDS: FLORASTOR (S. BOULARDII) 250 MG CAP PO SCH (10:17)
[2017-05-09] MEDS: ENOXAPARIN SOD 40 MG/0.4 ML SYRINGE SC SCH (10:17)
[2017-05-09] MEDS: FLUCONAZOLE 200MG/100ML 100 ML IV SCH (10:18)
[2017-05-09] MEDS ORDERED: ETOMIDATE (2MG/ML) 20ML VIAL IV ONE ×2 (12:06→14:30)
[2017-05-09] MEDS ORDERED: SUCCINYLCHOLINE CHLORIDE 20 MG/ML 10ML VIAL IV ONE ×2 (12:06→13:55)
[2017-05-09] MEDS: PROPOFOL 100 ML IV SCH (13:58)
[2017-05-09] MEDS ORDERED: PROPOFOL 100 ML IV ONE (14:11)
[2017-05-09] MEDS: fentaNYL Drip 2500mCg/250mlNS 250 ML IV SCH (14:59)
[2017-05-09] MEDS: SODIUM CHLORIDE 0.9% 1,000 ML IV SCH (15:28)
[2017-05-09] MEDS: LEVOFLOXACIN 750MG 150 ML IV SCH (15:49)
[2017-05-09 18:44] LABS: INR 1.23 (0.9-1.15); Partial Thromboplastin Time 36.6 sec (22.64-33.71); Prothrombin Time 13.4 sec (9.37-12.3)
[2017-05-09] MEDS ORDERED: [UNRECOGNIZED DRUG - OTHER] IV NR ×8 (20:00)
[2017-05-09] MEDS ORDERED: POTASSIUM PHOSPHATE IV NR ×8 (20:00)
[2017-05-09] MEDS ORDERED: FAT EMULSION IV NR ×8 (20:00)
[2017-05-09] MEDS ORDERED: SODIUM PHOSPHATES IV NR ×8 (20:00)
[2017-05-10] VITALS (89 sets, daily range): BP systolic 114–171; BP diastolic 44–94
[2017-05-10] MEDS: InsuLIN REG 1unit/0.01ml Soln (100units/ml) SC SCH ×4 (00:30→18:16)
[2017-05-10] MEDS: ACCU-CHEK COMFORT CURVE STRIP VI SCH ×4 (00:30→18:16)
[2017-05-10] MEDS: DIGOXIN (250MCG/ML) 2 ML AMPULE IV SCH ×4 (00:45→18:16)
[2017-05-10] MEDS: LABETALOL HCL 5 MG/ML ML 20ML VIAL IV PRN (00:50)
[2017-05-10] MEDS: metroNIDAZOLE 500MG/100ML 100 ML IV SCH ×4 (02:09→21:00)
[2017-05-10] MEDS: ALBUTEROL SULF 2.5 MG/0.5ML(0.5%) NEB SOLN NEB SCH ×6 (02:23→22:08)
[2017-05-10] MEDS: IPRATROPIUM BROM 0.5 MG/2.5ML INH SOL NEB SCH ×6 (02:23→22:08)
[2017-05-10 05:37] LABS: Albumin 2.1 g/dL (3.4-5.0); BUN/Creatinine Ratio 34.3; Bilirubin, Total 1.6 mg/dL (0.2-1.0); Calcium 8.3 mg/dL (8.5-10.1); Magnesium 2.3 mg/dL (1.6-2.6); Phosphorus 3.2 mg/dL (2.5-4.90); Potassium 3.8 mmol/L (3.5-5.1)
[2017-05-10] MEDS: NICARDIPINE 25MG/250ML BAG KIT 250 ML IV SCH ×4 (06:10→19:46)
[2017-05-10] MEDS: PIPERACILLIN-TAZOB 3.375GM 50 ML IV SCH ×4 (06:30→19:00)
[2017-05-10] MEDS ORDERED: GLYCOPYRROLATE 0.2 MG/ML 1ML VIAL ONE ×2 (08:10→11:00)
[2017-05-10] MEDS ORDERED: BENZOCAINE (DENTAL) 20 % SPRAY 60ML MT ONE (08:14)
[2017-05-10] MEDS ORDERED: LIDOCAINE 2%HCL (LOCAL ANESTH.) INJ 20ML MDV ONE (08:14)
[2017-05-10] MEDS ORDERED: SODIUM CHLORIDE LOCK 10 ML ONE (08:14)
[2017-05-10] MEDS ORDERED: HYDROmorphone HCL 2 MG/ML VL ONE (08:15)
[2017-05-10] MEDS: PROPOFOL 100 ML IV SCH ×3 (08:15→21:29)
[2017-05-10] MEDS ORDERED: EPINEPHrine HCL 1 MG/1 ML AMP ONE (08:15)
[2017-05-10] MEDS ORDERED: MIDAZOLAM HCL 5 MG/ML-1ML VIAL ONE (08:15)
[2017-05-10] MEDS ORDERED: LIDOCAINE HCL 2% TOP JELLY 5ML TOP ONE (08:15)
[2017-05-10] MEDS ORDERED: FLUMAZENIL 0.1 MG/ML INJ 10ML MDV IV ONE (08:16)
[2017-05-10] MEDS ORDERED: NALOXONE HCL 0.4 MG/ML VIAL ONE (08:16)
[2017-05-10 08:29] LABS: Hematocrit 34.5 % (36.0-46.0); Hemoglobin 11.4 g/dL (12.2-16.2); Mean Corpuscular Hgb Conc. 33.1 g/dL (32.0-36.0); Mean Corpuscular Volume 90.8 fL (80.0-100.0); Platelet Count (auto) 317 10^3/uL (140-450); Red Cell Distribution Width 15.9 % (11.8-14.3); White Blood Cell 7.5 10^3/uL (4.4-10.8)
[2017-05-10 08:44] LABS: Band Neutrophils % (manual) 0; Basophils % (manual) 0 (0.0-2.0); Blast Cells 0; Promyelocytes % 0; Reactive Lymphocytes 0
[2017-05-10] MEDS: SODIUM CHLOR 0.9% PF (SALINE LOCK) 10ML VIAL IV SCH ×2 (10:09→22:15)
[2017-05-10] MEDS: ENOXAPARIN SOD 40 MG/0.4 ML SYRINGE SC SCH (10:26)
[2017-05-10] MEDS: FLUCONAZOLE 200MG/100ML 100 ML IV SCH (10:26)
[2017-05-10] MEDS: PANTOPRAZOLE 40 MG/10 ML VIAL IV SCH (10:26)
[2017-05-10] MEDS ORDERED: ALBUTEROL SULF 2.5 MG/0.5ML(0.5%) NEB SOLN NEB ONE (10:30)
[2017-05-10] MEDS: METOPROLOL TARTRATE 50 MG TAB PO SCH ×2 (10:36→22:15)
[2017-05-10] MEDS: FLORASTOR (S. BOULARDII) 250 MG CAP PO SCH (10:36)
[2017-05-10] MEDS ORDERED: LORazepam 2MG/ML-1ML VIAL IV PRN (10:45)
[2017-05-10] MEDS ORDERED: ACETYLCYSTEINE 20%(200MG/ML) SOL 4ML NEB SCH (14:00)
[2017-05-10 14:01] LABS: Eosinophils % (manual) 1 (0-7); Lymphocytes % (manual) 12 (10.0-50.0); Metamyelocytes % 2; Monocytes % (manual) 8 (0-12); Myelocytes % 2
[2017-05-10] MEDS: fentaNYL Drip 2500mCg/250mlNS 250 ML IV SCH (14:15)
[2017-05-10] MEDS: ACETYLCYSTEINE 20%(200MG/ML) SOL 4ML NEB SCH ×2 (14:21→22:08)
[2017-05-10] MEDS: SODIUM CHLORIDE 0.9% 1,000 ML IV SCH (15:00)
[2017-05-10] MEDS: LEVOFLOXACIN 750MG 150 ML IV SCH (16:13)
[2017-05-10] MEDS: LEVOFLOXACIN 500MG 100 ML IV SCH (16:56)
[2017-05-10] MEDS ORDERED: LEVOFLOXACIN 250MG 50 ML IV SCH (17:00)
[2017-05-10] MEDS ORDERED: FUROSEMIDE 40 MG/4 ML VIAL ONE (17:18)
[2017-05-10] MEDS ORDERED: FUROSEMIDE 40 MG/4 ML VIAL IV ONE (17:30)
[2017-05-10] MEDS ORDERED: TPN PER PHARMACY IV NR ×7 (20:00)
[2017-05-11] VITALS (80 sets, daily range): BP systolic 104–149; BP diastolic 22–71
[2017-05-11] MEDS: ACCU-CHEK COMFORT CURVE STRIP VI SCH ×5 (00:20→23:41)
[2017-05-11] MEDS: PIPERACILLIN-TAZOB 3.375GM 50 ML IV SCH ×5 (00:20→23:41)
[2017-05-11] MEDS: NICARDIPINE 25MG/250ML BAG KIT 250 ML IV SCH ×6 (00:30→20:30)
[2017-05-11] MEDS: InsuLIN REG 1unit/0.01ml Soln (100units/ml) SC SCH ×5 (00:30→23:41)
[2017-05-11] MEDS: DIGOXIN (250MCG/ML) 2 ML AMPULE IV SCH ×4 (00:45→18:21)
[2017-05-11] MEDS: ALBUTEROL SULF 2.5 MG/0.5ML(0.5%) NEB SOLN NEB SCH ×6 (02:19→22:13)
[2017-05-11] MEDS: IPRATROPIUM BROM 0.5 MG/2.5ML INH SOL NEB SCH ×6 (02:19→22:12)
[2017-05-11] MEDS: metroNIDAZOLE 500MG/100ML 100 ML IV SCH ×4 (02:30→20:35)
[2017-05-11] MEDS ORDERED: NICARDIPINE HCL IN SODIUM CHLO 200 ML IV ONE (04:53)
[2017-05-11] MEDS: ACETYLCYSTEINE 20%(200MG/ML) SOL 4ML NEB SCH ×3 (05:42→22:12)
[2017-05-11 05:57] LABS: Hemoglobin 10.6 g/dL (12.2-16.2); Mean Corpuscular Hemoglobin 30.7 pg (28.0-32.0); Mean Corpuscular Hgb Conc. 34.1 g/dL (32.0-36.0); Mean Corpuscular Volume 90.2 fL (80.0-100.0); Platelet Count (auto) 303 10^3/uL (140-450); Red Blood Cells 3.44 10^6/uL (4.0-5.20); Red Cell Distribution Width 15.5 % (11.8-14.3); White Blood Cell 6.5 10^3/uL (4.4-10.8)
[2017-05-11] MEDS: PROPOFOL 100 ML IV SCH ×2 (06:10→20:32)
[2017-05-11 06:16] LABS: Basophils % (manual) 0 (0.0-2.0); Blast Cells 0; Metamyelocytes % 0; Myelocytes % 0; Promyelocytes % 0; Reactive Lymphocytes 0
[2017-05-11 06:31] LABS: BUN/Creatinine Ratio 33.3; Bilirubin, Total 1.4 mg/dL (0.2-1.0); Calcium 8.4 mg/dL (8.5-10.1); Magnesium 2.3 mg/dL (1.6-2.6); Phosphorus 3.1 mg/dL (2.5-4.90); Potassium 3.7 mmol/L (3.5-5.1); Total Protein 5.9 g/dL (6.4-8.2)
[2017-05-11 06:55] LABS: Band Neutrophils % (manual) 1; Eosinophils % (manual) 3 (0-7); Lymphocytes % (manual) 9 (10.0-50.0); Monocytes % (manual) 8 (0-12)
[2017-05-11] MEDS: SODIUM CHLOR 0.9% PF (SALINE LOCK) 10ML VIAL IV SCH ×2 (10:14→22:14)
[2017-05-11] MEDS: FLUCONAZOLE 200MG/100ML 100 ML IV SCH (10:20)
[2017-05-11] MEDS: FLORASTOR (S. BOULARDII) 250 MG CAP PO SCH (10:21)
[2017-05-11] MEDS: ENOXAPARIN SOD 40 MG/0.4 ML SYRINGE SC SCH (10:21)
[2017-05-11] MEDS: METOPROLOL TARTRATE 50 MG TAB PO SCH ×2 (10:22→22:14)
[2017-05-11] MEDS: fentaNYL Drip 2500mCg/250mlNS 250 ML IV SCH (10:53)
[2017-05-11] MEDS ORDERED: amLODIPine BESYLATE 5 MG TAB PO ONE ×2 (11:00→14:30)
[2017-05-11] MEDS ORDERED: POTASSIUM CHL 20MEQ/100ML 100 ML IV ONE (12:00)
[2017-05-11] MEDS ORDERED: FUROSEMIDE 20 MG/2 ML VIAL IV ONE (12:00)
[2017-05-11] MEDS ORDERED: TPN PER PHARMACY 0 ML IV SCH (12:00)
[2017-05-11] MEDS ORDERED: DEXTROSE (50%) 50ML SYRG IV SCH (12:00)
[2017-05-11] MEDS: VANCOMYCIN HCL 125MG/5ML ORAL SOL PO SCH ×3 (12:28→23:41)
[2017-05-11] MEDS: SODIUM CHLORIDE 0.9% 1,000 ML IV SCH (15:00)
[2017-05-11] MEDS: LEVOFLOXACIN 500MG 100 ML IV SCH (17:11)
[2017-05-11] MEDS ORDERED: TPN PER PHARMACY IV NR ×8 (20:00)
[2017-05-11] MEDS: FAMOTIDINE (10MG/ML) 2ML VL IV SCH (22:14)
[2017-05-12] VITALS (61 sets, daily range): BP systolic 98–227; BP diastolic 42–212
[2017-05-12] MEDS: DIGOXIN (250MCG/ML) 2 ML AMPULE IV SCH ×2 (00:45→06:18)
[2017-05-12] MEDS: NICARDIPINE 25MG/250ML BAG KIT 250 ML IV SCH ×2 (01:30→06:15)
[2017-05-12] MEDS: ALBUTEROL SULF 2.5 MG/0.5ML(0.5%) NEB SOLN NEB SCH ×6 (02:01→22:14)
[2017-05-12] MEDS: IPRATROPIUM BROM 0.5 MG/2.5ML INH SOL NEB SCH ×6 (02:01→22:14)
[2017-05-12] MEDS: metroNIDAZOLE 500MG/100ML 100 ML IV SCH ×4 (02:41→19:53)
[2017-05-12 03:51] LABS: Hematocrit 29.4 % (36.0-46.0); Mean Corpuscular Hemoglobin 30.7 pg (28.0-32.0); Mean Corpuscular Hgb Conc. 33.9 g/dL (32.0-36.0); Mean Corpuscular Volume 90.7 fL (80.0-100.0); Platelet Count (auto) 253 10^3/uL (140-450); Red Blood Cells 3.24 10^6/uL (4.0-5.20); Red Cell Distribution Width 15.8 % (11.8-14.3)
[2017-05-12 03:55] LABS: Basophils % (manual) 0 (0.0-2.0); Blast Cells 0; Promyelocytes % 0; Reactive Lymphocytes 0
[2017-05-12] MEDS: MORPHINE SULFATE 4 MG/ML SYR/VIAL IV PRN ×2 (04:47→11:53)
[2017-05-12] MEDS: PROPOFOL 100 ML IV SCH ×5 (04:48→20:39)
[2017-05-12 05:02] LABS: Band Neutrophils % (manual) 1; Eosinophils % (manual) 2 (0-7); Lymphocytes % (manual) 21 (10.0-50.0); Metamyelocytes % 2; Monocytes % (manual) 16 (0-12); Myelocytes % 3
[2017-05-12 05:05] LABS: Calcium 8.4 mg/dL (8.5-10.1); Potassium 3.6 mmol/L (3.5-5.1)
[2017-05-12 05:09] LABS: BUN/Creatinine Ratio 39.7; Magnesium 2.2 mg/dL (1.6-2.6)
[2017-05-12 05:11] LABS: Bilirubin, Total 1.1 mg/dL (0.2-1.0); Total Protein 5.8 g/dL (6.4-8.2)
[2017-05-12] MEDS: InsuLIN REG 1unit/0.01ml Soln (100units/ml) SC SCH ×4 (06:00→23:49)
[2017-05-12] MEDS: ACETYLCYSTEINE 20%(200MG/ML) SOL 4ML NEB SCH ×3 (06:00→18:15)
[2017-05-12] MEDS: PIPERACILLIN-TAZOB 3.375GM 50 ML IV SCH ×4 (06:11→23:47)
[2017-05-12] MEDS: ACCU-CHEK COMFORT CURVE STRIP VI SCH ×4 (06:15→23:47)
[2017-05-12] MEDS: VANCOMYCIN HCL 125MG/5ML ORAL SOL PO SCH ×4 (06:15→23:47)
[2017-05-12 09:04] LABS: Phosphorus 3.7 mg/dL (2.5-4.90)
[2017-05-12] MEDS: FAMOTIDINE (10MG/ML) 2ML VL IV SCH ×2 (10:26→21:41)
[2017-05-12] MEDS: FLUCONAZOLE 200MG/100ML 100 ML IV SCH (10:26)
[2017-05-12] MEDS: FLORASTOR (S. BOULARDII) 250 MG CAP PO SCH (10:27)
[2017-05-12] MEDS: SODIUM CHLOR 0.9% PF (SALINE LOCK) 10ML VIAL IV SCH ×2 (10:27→21:41)
[2017-05-12] MEDS: METOPROLOL TARTRATE 50 MG TAB PO SCH ×2 (10:28→21:41)
[2017-05-12] MEDS: amLODIPine BESYLATE 5 MG TAB PO SCH (10:28)
[2017-05-12] MEDS: ENOXAPARIN SOD 40 MG/0.4 ML SYRINGE SC SCH (10:53)
[2017-05-12] MEDS: LEVOFLOXACIN 500MG 100 ML IV SCH (17:55)
[2017-05-12] MEDS ORDERED: EPINEPHrine HCL 0.5 ML NEB ONE (18:40)
[2017-05-12] MEDS ORDERED: methylPREDNISolone SOD SUCC 125 MG/2 ML VL ONE (18:59)
[2017-05-12] MEDS ORDERED: EPINEPHrine HCL 0.5 ML NEB NEB ONE ×2 (19:00)
[2017-05-12] MEDS ORDERED: ETOMIDATE (2MG/ML) 20ML VIAL IV ONE ×2 (19:03→19:30)
[2017-05-12] MEDS ORDERED: SUCCINYLCHOLINE CHLORIDE 20 MG/ML 10ML VIAL IV ONE (19:03)
[2017-05-12] MEDS: methylPREDNISolone SOD SUCC 125 MG/2 ML VL IV SCH (19:23)
[2017-05-12] MEDS: fentaNYL Drip 2500mCg/250mlNS 250 ML IV SCH (19:53)
[2017-05-12] MEDS ORDERED: TPN PER PHARMACY IV NR ×8 (20:00)
[2017-05-13] VITALS (82 sets, daily range): BP systolic 66–179; BP diastolic 52–87
[2017-05-13] MEDS: metroNIDAZOLE 500MG/100ML 100 ML IV SCH ×4 (01:48→20:00)
[2017-05-13] MEDS: PROPOFOL 100 ML IV SCH ×6 (01:48→19:45)
[2017-05-13] MEDS: ALBUTEROL SULF 2.5 MG/0.5ML(0.5%) NEB SOLN NEB SCH ×6 (02:21→22:10)
[2017-05-13] MEDS: IPRATROPIUM BROM 0.5 MG/2.5ML INH SOL NEB SCH ×6 (02:21→22:09)
[2017-05-13] MEDS: LABETALOL HCL 5 MG/ML ML 20ML VIAL IV PRN (03:09)
[2017-05-13] MEDS: methylPREDNISolone SOD SUCC 125 MG/2 ML VL IV SCH ×3 (03:09→20:00)
[2017-05-13] MEDS: MORPHINE SULFATE 4 MG/ML SYR/VIAL IV PRN (03:42)
[2017-05-13 04:10] LABS: Magnesium 2.4 mg/dL (1.6-2.6)
[2017-05-13 04:21] LABS: Albumin 2.3 g/dL (3.4-5.0); BUN/Creatinine Ratio 35.3; Calcium 8.6 mg/dL (8.5-10.1); Potassium 4.2 mmol/L (3.5-5.1)
[2017-05-13 04:27] LABS: Total Protein 6.4 g/dL (6.4-8.2)
[2017-05-13] MEDS: VANCOMYCIN HCL 125MG/5ML ORAL SOL PO SCH ×4 (05:31→23:55)
[2017-05-13] MEDS: PIPERACILLIN-TAZOB 3.375GM 50 ML IV SCH ×4 (05:31→23:55)
[2017-05-13] MEDS: InsuLIN REG 1unit/0.01ml Soln (100units/ml) SC SCH ×4 (05:32→23:55)
[2017-05-13] MEDS: ACCU-CHEK COMFORT CURVE STRIP VI SCH ×4 (05:32→23:55)
[2017-05-13] MEDS: ACETYLCYSTEINE 20%(200MG/ML) SOL 4ML NEB SCH ×3 (06:00→22:10)
[2017-05-13] MEDS ORDERED: POTASSIUM PHOSP 22MEQ(15MMOLE) in NS 100 ML IV ONE (10:00)
[2017-05-13] MEDS ORDERED: FUROSEMIDE 20 MG/2 ML VIAL IV ONE (10:15)
[2017-05-13] MEDS: amLODIPine BESYLATE 5 MG TAB PO SCH (10:43)
[2017-05-13] MEDS: FLORASTOR (S. BOULARDII) 250 MG CAP PO SCH (10:43)
[2017-05-13] MEDS: FLUCONAZOLE 200MG/100ML 100 ML IV SCH (10:44)
[2017-05-13] MEDS: SODIUM CHLOR 0.9% PF (SALINE LOCK) 10ML VIAL IV SCH ×2 (10:44→21:55)
[2017-05-13] MEDS: FAMOTIDINE (10MG/ML) 2ML VL IV SCH ×2 (10:45→21:55)
[2017-05-13] MEDS: DIGOXIN (250MCG/ML) 2 ML AMPULE IV SCH (10:45)
[2017-05-13] MEDS: ENOXAPARIN SOD 40 MG/0.4 ML SYRINGE SC SCH (10:46)
[2017-05-13] MEDS: METOPROLOL TARTRATE 50 MG TAB PO SCH ×2 (11:23→21:55)
[2017-05-13] MEDS ORDERED: diphenhdrAMINE HCL 12.5 MG/5 ML UD PO ONE (11:45)
[2017-05-13] MEDS: fentaNYL Drip 2500mCg/250mlNS 250 ML IV SCH ×2 (14:15→22:40)
[2017-05-13] MEDS: LEVOFLOXACIN 500MG 100 ML IV SCH (18:06)
[2017-05-13] MEDS ORDERED: TPN PER PHARMACY IV NR ×8 (20:00)
[2017-05-13] MEDS: diphenhdrAMINE HCL 12.5 MG/5 ML UD PO SCH (21:55)
[2017-05-14] VITALS (104 sets, daily range): BP systolic 116–174; BP diastolic 43–79
[2017-05-14] MEDS: PROPOFOL 100 ML IV SCH ×5 (00:34→23:40)
[2017-05-14] MEDS: metroNIDAZOLE 500MG/100ML 100 ML IV SCH ×2 (01:38→08:38)
[2017-05-14] MEDS: ALBUTEROL SULF 2.5 MG/0.5ML(0.5%) NEB SOLN NEB SCH ×6 (02:07→22:08)
[2017-05-14] MEDS: IPRATROPIUM BROM 0.5 MG/2.5ML INH SOL NEB SCH ×6 (02:07→22:08)
[2017-05-14] MEDS: LABETALOL HCL 5 MG/ML ML 20ML VIAL IV PRN (02:45)
[2017-05-14] MEDS: methylPREDNISolone SOD SUCC 125 MG/2 ML VL IV SCH ×2 (03:00→11:02)
[2017-05-14 04:51] LABS: Basophils # (auto) 0 uL; Basophils % (auto) 0.1 % (0.0-2.0); Eosinophils # (auto) 0 uL; Hematocrit 30.6 % (36.0-46.0); Hemoglobin 10.4 g/dL (12.2-16.2); Lymphocytes # (auto) 0.4 uL; Lymphocytes % (auto) 5.8 % (10.0-50.0); Mean Corpuscular Hemoglobin 30.8 pg (28.0-32.0); Mean Corpuscular Volume 90.6 fL (80.0-100.0); Monocytes # (auto) 0.3 uL; Monocytes % (auto) 4.4 % (0.0-12.0); Neutrophils # (auto) 6.1 uL; Neutrophils % (auto) 89.7 % (37.0-80.0); Nucleated Red Blood Cells % 0.1 %; Platelet Count (auto) 387 10^3/uL (140-450); Red Blood Cells 3.37 10^6/uL (4.0-5.20); White Blood Cell 6.8 10^3/uL (4.4-10.8)
[2017-05-14 05:13] LABS: Albumin 2.2 g/dL (3.4-5.0); BUN/Creatinine Ratio 39.7; Bilirubin, Total 0.9 mg/dL (0.2-1.0); Calcium 8.4 mg/dL (8.5-10.1); Magnesium 2.6 mg/dL (1.6-2.6); Total Protein 6.4 g/dL (6.4-8.2)
[2017-05-14] MEDS: ACETYLCYSTEINE 20%(200MG/ML) SOL 4ML NEB SCH ×3 (05:58→22:08)
[2017-05-14] MEDS: diphenhdrAMINE HCL 12.5 MG/5 ML UD PO SCH ×3 (06:00→22:08)
[2017-05-14] MEDS: VANCOMYCIN HCL 125MG/5ML ORAL SOL PO SCH ×4 (06:00→23:40)
[2017-05-14] MEDS: ACCU-CHEK COMFORT CURVE STRIP VI SCH ×3 (06:00→17:46)
[2017-05-14] MEDS: PIPERACILLIN-TAZOB 3.375GM 50 ML IV SCH ×2 (06:00→11:47)
[2017-05-14] MEDS: InsuLIN REG 1unit/0.01ml Soln (100units/ml) SC SCH ×3 (06:00→17:47)
[2017-05-14] MEDS: FAMOTIDINE (10MG/ML) 2ML VL IV SCH ×2 (09:43→22:08)
[2017-05-14] MEDS: ENOXAPARIN SOD 40 MG/0.4 ML SYRINGE SC SCH (09:43)
[2017-05-14] MEDS: DIGOXIN (250MCG/ML) 2 ML AMPULE IV SCH (09:43)
[2017-05-14] MEDS: FLORASTOR (S. BOULARDII) 250 MG CAP PO SCH (09:43)
[2017-05-14] MEDS: METOPROLOL TARTRATE 50 MG TAB PO SCH ×2 (09:44→22:08)
[2017-05-14] MEDS: amLODIPine BESYLATE 5 MG TAB PO SCH (09:44)
[2017-05-14] MEDS: FLUCONAZOLE 200MG/100ML 100 ML IV SCH (09:47)
[2017-05-14] MEDS: SODIUM CHLOR 0.9% PF (SALINE LOCK) 10ML VIAL IV SCH ×2 (09:58→22:08)
[2017-05-14] MEDS ORDERED: POTASSIUM PHOSP 26.4MEQ(18MMOL) IN NS 100 ML IV ONE (10:30)
[2017-05-14] MEDS ORDERED: POTASSIUM PHOSP 22MEQ(15MMOLE) in NS 100 ML IV ONE (10:45)
[2017-05-14] MEDS ORDERED: POTASSIUM CHL 10% (20 MEQ/15ML) 15ml ORAL SOLN PO ONE (13:15)
[2017-05-14] MEDS ORDERED: FUROSEMIDE 20 MG/2 ML VIAL IV ONE (13:15)
[2017-05-14] MEDS: metroNIDAZOLE 500 MG TAB PO SCH ×2 (13:34→22:08)
[2017-05-14] MEDS: Fibersource Hn 1 Liter GT SCH (14:10)
[2017-05-14] MEDS: LEVOFLOXACIN 500MG 100 ML IV SCH (17:46)
[2017-05-14] MEDS ORDERED: TPN PER PHARMACY IV NR ×7 (20:00)
[2017-05-15] VITALS (91 sets, daily range): BP systolic 105–163; BP diastolic 39–78
[2017-05-15] MEDS: IPRATROPIUM BROM 0.5 MG/2.5ML INH SOL NEB SCH ×6 (02:15→22:00)
[2017-05-15] MEDS: ALBUTEROL SULF 2.5 MG/0.5ML(0.5%) NEB SOLN NEB SCH ×6 (02:15→22:00)
[2017-05-15] MEDS: PROPOFOL 100 ML IV SCH ×3 (03:30→09:57)
[2017-05-15] MEDS: fentaNYL Drip 2500mCg/250mlNS 250 ML IV SCH ×2 (04:00→23:28)
[2017-05-15 04:40] LABS: Albumin 2.2 g/dL (3.4-5.0); BUN/Creatinine Ratio 53.5; Calcium 8.5 mg/dL (8.5-10.1); Magnesium 2.6 mg/dL (1.6-2.6); Phosphorus 2.6 mg/dL (2.5-4.90); Potassium 4.6 mmol/L (3.5-5.1); Total Protein 6.4 g/dL (6.4-8.2)
[2017-05-15] MEDS: ACETYLCYSTEINE 20%(200MG/ML) SOL 4ML NEB SCH ×4 (05:40→22:00)
[2017-05-15] MEDS: diphenhdrAMINE HCL 12.5 MG/5 ML UD PO SCH ×3 (05:57→22:00)
[2017-05-15] MEDS: VANCOMYCIN HCL 125MG/5ML ORAL SOL PO SCH ×3 (05:57→17:49)
[2017-05-15] MEDS: metroNIDAZOLE 500 MG TAB PO SCH ×3 (05:57→21:28)
[2017-05-15] MEDS: ENOXAPARIN SOD 40 MG/0.4 ML SYRINGE SC SCH (09:57)
[2017-05-15] MEDS: FLUCONAZOLE 200MG/100ML 100 ML IV SCH (09:57)
[2017-05-15] MEDS: FLORASTOR (S. BOULARDII) 250 MG CAP PO SCH (09:58)
[2017-05-15] MEDS: FAMOTIDINE (10MG/ML) 2ML VL IV SCH ×2 (09:58→21:27)
[2017-05-15] MEDS: FUROSEMIDE 20 MG/2 ML VIAL IV SCH (09:58)
[2017-05-15] MEDS: amLODIPine BESYLATE 5 MG TAB PO SCH (09:59)
[2017-05-15] MEDS: SODIUM CHLOR 0.9% PF (SALINE LOCK) 10ML VIAL IV SCH ×2 (09:59→21:29)
[2017-05-15] MEDS: DIGOXIN 0.125 MG TAB PO SCH (09:59)
[2017-05-15] MEDS: METOPROLOL TARTRATE 50 MG TAB PO SCH ×2 (10:00→21:28)
[2017-05-15] MEDS: POTASSIUM CHL 10% (20 MEQ/15ML) 15ml ORAL SOLN PO SCH (10:00)
[2017-05-15] MEDS: Fibersource Hn 1 Liter GT SCH (15:35)
[2017-05-15] MEDS: LEVOFLOXACIN 500MG 100 ML IV SCH (17:49)
[2017-05-15] MEDS: PROMETHAZINE HCL 25 MG/ML 1ML IV PRN (21:27)
[2017-05-16] VITALS (39 sets, daily range): BP systolic 97–178; BP diastolic 32–105
[2017-05-16] MEDS: PROPOFOL 100 ML IV SCH (01:00)
[2017-05-16] MEDS: ALBUTEROL SULF 2.5 MG/0.5ML(0.5%) NEB SOLN NEB SCH ×6 (02:00→22:08)
[2017-05-16] MEDS: IPRATROPIUM BROM 0.5 MG/2.5ML INH SOL NEB SCH ×6 (02:00→22:08)
[2017-05-16 04:22] LABS: Albumin 2.2 g/dL (3.4-5.0); Calcium 8.5 mg/dL (8.5-10.1); Potassium 4.4 mmol/L (3.5-5.1)
[2017-05-16 04:30] LABS: BUN/Creatinine Ratio 72.4; Bilirubin, Total 0.7 mg/dL (0.2-1.0); Total Protein 5.5 g/dL (6.4-8.2)
[2017-05-16] MEDS: VANCOMYCIN HCL 125MG/5ML ORAL SOL PO SCH ×4 (06:00→17:58)
[2017-05-16] MEDS: metroNIDAZOLE 500 MG TAB PO SCH ×3 (06:00→21:48)
[2017-05-16] MEDS: diphenhdrAMINE HCL 12.5 MG/5 ML UD PO SCH ×2 (06:00→14:00)
[2017-05-16] MEDS: LABETALOL HCL 5 MG/ML ML 20ML VIAL IV PRN ×2 (08:41→17:31)
[2017-05-16] MEDS: POTASSIUM CHL 10% (20 MEQ/15ML) 15ml ORAL SOLN PO SCH (10:00)
[2017-05-16] MEDS: SODIUM CHLOR 0.9% PF (SALINE LOCK) 10ML VIAL IV SCH ×2 (10:00→21:48)
[2017-05-16] MEDS: FAMOTIDINE (10MG/ML) 2ML VL IV SCH ×2 (10:56→21:47)
[2017-05-16] MEDS: FLUCONAZOLE 200MG/100ML 100 ML IV SCH (10:56)
[2017-05-16] MEDS: FUROSEMIDE 20 MG/2 ML VIAL IV SCH (10:56)
[2017-05-16] MEDS: DIGOXIN 0.125 MG TAB PO SCH (10:57)
[2017-05-16] MEDS: ENOXAPARIN SOD 40 MG/0.4 ML SYRINGE SC SCH (10:58)
[2017-05-16] MEDS: amLODIPine BESYLATE 5 MG TAB PO SCH (10:58)
[2017-05-16] MEDS: FLORASTOR (S. BOULARDII) 250 MG CAP PO SCH (11:11)
[2017-05-16] MEDS: METOPROLOL TARTRATE 50 MG TAB PO SCH ×2 (11:12→21:48)
[2017-05-16] MEDS ORDERED: fentaNYL Drip 2500mCg/250mlNS 250 ML IV SCH (11:41)
[2017-05-16] MEDS: ACETYLCYSTEINE 20%(200MG/ML) SOL 4ML NEB SCH ×2 (14:29→22:09)
[2017-05-16] MEDS: LEVOFLOXACIN 500MG 100 ML IV SCH (17:58)
[2017-05-16] MEDS: ACETAMINOPHEN 650 mg PER 20 mL UD PO PRN (21:49)
[2017-05-16] MEDS: PROMETHAZINE HCL 25 MG/ML 1ML IV PRN (21:50)
[2017-05-17] VITALS (25 sets, daily range): BP systolic 135–193; BP diastolic 62–112
[2017-05-17] MEDS: VANCOMYCIN HCL 125MG/5ML ORAL SOL PO SCH ×3 (00:14→12:57)
[2017-05-17] MEDS: IPRATROPIUM BROM 0.5 MG/2.5ML INH SOL NEB SCH ×6 (02:07→22:19)
[2017-05-17] MEDS: ALBUTEROL SULF 2.5 MG/0.5ML(0.5%) NEB SOLN NEB SCH ×6 (02:07→22:19)
[2017-05-17] MEDS: LABETALOL HCL 5 MG/ML ML 20ML VIAL IV PRN ×2 (02:56→06:31)
[2017-05-17 03:49] LABS: Hematocrit 34.5 % (36.0-46.0); Hemoglobin 11.8 g/dL (12.2-16.2); Mean Corpuscular Hemoglobin 30.7 pg (28.0-32.0); Mean Corpuscular Hgb Conc. 34.1 g/dL (32.0-36.0); Platelet Count (auto) 480 10^3/uL (140-450); Red Blood Cells 3.84 10^6/uL (4.0-5.20); Red Cell Distribution Width 15.6 % (11.8-14.3)
[2017-05-17 04:00] LABS: BUN/Creatinine Ratio 54.3; Calcium 8.5 mg/dL (8.5-10.1); Potassium 3.8 mmol/L (3.5-5.1)
[2017-05-17 04:04] LABS: Basophils % (manual) 0 (0.0-2.0); Blast Cells 0; Promyelocytes % 0; Reactive Lymphocytes 0
[2017-05-17 04:31] LABS: Band Neutrophils % (manual) 3; Eosinophils % (manual) 2 (0-7); Lymphocytes % (manual) 11 (10.0-50.0); Metamyelocytes % 2; Monocytes % (manual) 11 (0-12); Myelocytes % 1
[2017-05-17] MEDS: PROMETHAZINE HCL 25 MG/ML 1ML IV PRN ×2 (05:05→21:56)
[2017-05-17] MEDS: ACETYLCYSTEINE 20%(200MG/ML) SOL 4ML NEB SCH (05:46)
[2017-05-17] MEDS: metroNIDAZOLE 500 MG TAB PO SCH ×3 (06:31→21:56)
[2017-05-17] MEDS: FLORASTOR (S. BOULARDII) 250 MG CAP PO SCH ×2 (10:00→10:06)
[2017-05-17] MEDS: FAMOTIDINE (10MG/ML) 2ML VL IV SCH ×2 (10:03→21:56)
[2017-05-17] MEDS: ENOXAPARIN SOD 40 MG/0.4 ML SYRINGE SC SCH (10:04)
[2017-05-17] MEDS: FUROSEMIDE 20 MG/2 ML VIAL IV SCH (10:07)
[2017-05-17] MEDS: amLODIPine BESYLATE 5 MG TAB PO SCH (10:08)
[2017-05-17] MEDS: METOPROLOL TARTRATE 50 MG TAB PO SCH ×2 (10:08→21:57)
[2017-05-17] MEDS: POTASSIUM CHL 10% (20 MEQ/15ML) 15ml ORAL SOLN PO SCH (10:09)
[2017-05-17] MEDS ORDERED: FUROSEMIDE 40 MG/4 ML VIAL IV ONE (10:15)
[2017-05-17] MEDS ORDERED: POTASSIUM CHL 10% (20 MEQ/15ML) 15ml ORAL SOLN PO ONE (10:15)
[2017-05-17] MEDS: SODIUM CHLOR 0.9% PF (SALINE LOCK) 10ML VIAL IV SCH ×2 (10:15→21:56)
[2017-05-17] MEDS: DIGOXIN 0.125 MG TAB PO SCH (10:17)
[2017-05-17] MEDS: FLUCONAZOLE 200MG/100ML 100 ML IV SCH (10:18)
[2017-05-17] MEDS ORDERED: LISINOPRIL 10 MG TAB PO ONE (13:00)
[2017-05-17] MEDS: LEVOFLOXACIN 500MG 100 ML IV SCH (18:59)
[2017-05-18] VITALS (14 sets, daily range): BP systolic 111–177; BP diastolic 50–97
[2017-05-18] MEDS: IPRATROPIUM BROM 0.5 MG/2.5ML INH SOL NEB SCH ×6 (02:22→22:37)
[2017-05-18] MEDS: ALBUTEROL SULF 2.5 MG/0.5ML(0.5%) NEB SOLN NEB SCH ×6 (02:22→22:37)
[2017-05-18 04:18] LABS: Calcium 8.9 mg/dL (8.5-10.1); Potassium 3.5 mmol/L (3.5-5.1)
[2017-05-18 04:21] LABS: BUN/Creatinine Ratio 47.7
[2017-05-18] MEDS: metroNIDAZOLE 500 MG TAB PO SCH ×3 (06:01→22:08)
[2017-05-18] MEDS: LABETALOL HCL 5 MG/ML ML 20ML VIAL IV PRN (06:33)
[2017-05-18] MEDS: PROMETHAZINE HCL 25 MG/ML 1ML IV PRN (09:07)
[2017-05-18] MEDS: FLORASTOR (S. BOULARDII) 250 MG CAP PO SCH (10:00)
[2017-05-18] MEDS: amLODIPine BESYLATE 5 MG TAB PO SCH (10:00)
[2017-05-18] MEDS: FUROSEMIDE 20 MG/2 ML VIAL IV SCH (10:05)
[2017-05-18] MEDS: FAMOTIDINE (10MG/ML) 2ML VL IV SCH (10:05)
[2017-05-18] MEDS: SODIUM CHLOR 0.9% PF (SALINE LOCK) 10ML VIAL IV SCH ×2 (10:05→22:06)
[2017-05-18] MEDS: METOPROLOL TARTRATE 50 MG TAB PO SCH ×2 (10:06→22:07)
[2017-05-18] MEDS: DIGOXIN 0.125 MG TAB PO SCH (10:06)
[2017-05-18] MEDS: POTASSIUM CHL 10% (20 MEQ/15ML) 15ml ORAL SOLN PO SCH (10:06)
[2017-05-18] MEDS: ENOXAPARIN SOD 40 MG/0.4 ML SYRINGE SC SCH (10:07)
[2017-05-18] MEDS: FLUCONAZOLE 200MG/100ML 100 ML IV SCH (10:07)
[2017-05-18] MEDS: LISINOPRIL 10 MG TAB PO SCH (10:07)
[2017-05-18] MEDS: LEVOFLOXACIN 500MG 100 ML IV SCH (17:41)
[2017-05-18] MEDS: MORPHINE SULFATE 4 MG/ML SYR/VIAL IV PRN (23:25)
[2017-05-19] VITALS (7 sets, daily range): BP systolic 128–163; BP diastolic 65–86
[2017-05-19] MEDS ORDERED: LORazepam 2MG/ML-1ML VIAL ONE (01:09)
[2017-05-19] MEDS ORDERED: LORazepam 2MG/ML-1ML VIAL IV ONE (01:15)
[2017-05-19] MEDS: ALBUTEROL SULF 2.5 MG/0.5ML(0.5%) NEB SOLN NEB SCH ×6 (02:19→23:15)
[2017-05-19] MEDS: IPRATROPIUM BROM 0.5 MG/2.5ML INH SOL NEB SCH ×6 (02:19→22:21)
[2017-05-19 05:22] LABS: Hematocrit 33.9 % (36.0-46.0); Hemoglobin 11.4 g/dL (12.2-16.2); Mean Corpuscular Hemoglobin 30.4 pg (28.0-32.0); Mean Corpuscular Hgb Conc. 33.7 g/dL (32.0-36.0); Mean Corpuscular Volume 90.2 fL (80.0-100.0); Platelet Count (auto) 444 10^3/uL (140-450); Red Blood Cells 3.76 10^6/uL (4.0-5.20); Red Cell Distribution Width 15.5 % (11.8-14.3); White Blood Cell 9.8 10^3/uL (4.4-10.8)
[2017-05-19 05:43] LABS: Basophils % (manual) 0 (0.0-2.0); Blast Cells 0; Promyelocytes % 0; Reactive Lymphocytes 0
[2017-05-19 05:46] LABS: BUN/Creatinine Ratio 45.8; Calcium 8.9 mg/dL (8.5-10.1); Potassium 3.4 mmol/L (3.5-5.1)
[2017-05-19] MEDS: metroNIDAZOLE 500 MG TAB PO SCH ×3 (06:04→22:22)
[2017-05-19 06:50] LABS: Band Neutrophils % (manual) 2; Eosinophils % (manual) 3 (0-7); Lymphocytes % (manual) 19 (10.0-50.0); Metamyelocytes % 1; Monocytes % (manual) 15 (0-12); Myelocytes % 1
[2017-05-19] MEDS: FLORASTOR (S. BOULARDII) 250 MG CAP PO SCH (10:00)
[2017-05-19] MEDS: PANTOPRAZOLE 40 MG TAB PO SCH (10:40)
[2017-05-19] MEDS: LISINOPRIL 10 MG TAB PO SCH (10:40)
[2017-05-19] MEDS: amLODIPine BESYLATE 5 MG TAB PO SCH (10:40)
[2017-05-19] MEDS: DIGOXIN 0.125 MG TAB PO SCH (10:41)
[2017-05-19] MEDS: METOPROLOL TARTRATE 50 MG TAB PO SCH ×4 (10:41→22:20)
[2017-05-19] MEDS: ENOXAPARIN SOD 40 MG/0.4 ML SYRINGE SC SCH (10:42)
[2017-05-19] MEDS: FUROSEMIDE 20 MG/2 ML VIAL IV SCH (10:42)
[2017-05-19] MEDS: FLUCONAZOLE 200MG/100ML 100 ML IV SCH (10:42)
[2017-05-19] MEDS: SODIUM CHLOR 0.9% PF (SALINE LOCK) 10ML VIAL IV SCH ×2 (10:42→20:21)
[2017-05-19] MEDS: MORPHINE SULFATE 4 MG/ML SYR/VIAL IV PRN ×2 (10:43→22:47)
[2017-05-19] MEDS: POTASSIUM CHL 10% (20 MEQ/15ML) 15ml ORAL SOLN PO SCH (10:43)
[2017-05-19] MEDS: BOOST PLUS 8 ounce PO SCH ×2 (12:00→18:11)
[2017-05-19] MEDS: LEVOFLOXACIN 500MG 100 ML IV SCH (18:11)
[2017-05-19] MEDS: ACETAMINOPHEN 650 mg PER 20 mL UD PO PRN (22:14)
[2017-05-20] MEDS: ALBUTEROL SULF 2.5 MG/0.5ML(0.5%) NEB SOLN NEB SCH ×6 (02:00→22:13)
[2017-05-20] MEDS: IPRATROPIUM BROM 0.5 MG/2.5ML INH SOL NEB SCH ×6 (02:00→22:14)
[2017-05-20] MEDS: MORPHINE SULFATE 4 MG/ML SYR/VIAL IV PRN ×2 (03:08→22:14)
[2017-05-20 05:00] VITALS: BP 148/66
[2017-05-20] MEDS: metroNIDAZOLE 500 MG TAB PO SCH ×3 (06:00→22:14)
[2017-05-20] MEDS: BOOST PLUS 8 ounce PO SCH ×3 (08:00→17:19)
[2017-05-20 08:31] VITALS: BP 127/66
[2017-05-20] MEDS: FLUCONAZOLE 200MG/100ML 100 ML IV SCH (10:00)
[2017-05-20] MEDS: SODIUM CHLOR 0.9% PF (SALINE LOCK) 10ML VIAL IV SCH ×2 (10:00→22:00)
[2017-05-20] MEDS: FLORASTOR (S. BOULARDII) 250 MG CAP PO SCH (10:00)
[2017-05-20] MEDS: amLODIPine BESYLATE 5 MG TAB PO SCH (10:01)
[2017-05-20] MEDS: PANTOPRAZOLE 40 MG TAB PO SCH (10:01)
[2017-05-20] MEDS: DIGOXIN 0.125 MG TAB PO SCH (10:01)
[2017-05-20] MEDS: ENOXAPARIN SOD 40 MG/0.4 ML SYRINGE SC SCH (10:03)
[2017-05-20] MEDS: LISINOPRIL 10 MG TAB PO SCH (10:03)
[2017-05-20] MEDS: ACETAMINOPHEN 650 mg PER 20 mL UD PO PRN (10:04)
[2017-05-20] MEDS: ONDANSETRON HCL 4 MG/2 ML VIAL IV PRN ×3 (10:36→22:14)
[2017-05-20 13:00] VITALS: BP 142/62
[2017-05-20 16:38] VITALS: BP 138/62
[2017-05-20] MEDS: PRO-STAT 64 30ML PO SCH (17:19)
[2017-05-20] MEDS: LEVOFLOXACIN 500MG 100 ML IV SCH (17:19)
[2017-05-20] MEDS: PROMETHAZINE HCL 25 MG/ML 1ML IV PRN (18:48)
[2017-05-20 22:00] VITALS: BP 134/57
[2017-05-20] MEDS: METOPROLOL TARTRATE 50 MG TAB PO SCH (22:15)
[2017-05-20] MEDS: TEMAZEPAM 15 MG CAP PO PRN (22:56)
[2017-05-21] MEDS: IPRATROPIUM BROM 0.5 MG/2.5ML INH SOL NEB SCH ×5 (02:18→18:34)
[2017-05-21] MEDS: ALBUTEROL SULF 2.5 MG/0.5ML(0.5%) NEB SOLN NEB SCH ×5 (02:18→18:35)
[2017-05-21] MEDS: PROMETHAZINE HCL 25 MG/ML 1ML IV PRN ×4 (04:33→23:16)
[2017-05-21] MEDS: MORPHINE SULFATE 4 MG/ML SYR/VIAL IV PRN (04:34)
[2017-05-21 05:00] VITALS: BP 155/70
[2017-05-21 05:56] LABS: Hematocrit 34.5 % (36.0-46.0); Hemoglobin 11.4 g/dL (12.2-16.2); Mean Corpuscular Hemoglobin 30.1 pg (28.0-32.0); Mean Corpuscular Hgb Conc. 33.1 g/dL (32.0-36.0); Mean Corpuscular Volume 90.9 fL (80.0-100.0); Platelet Count (auto) 391 10^3/uL (140-450); Red Cell Distribution Width 15.8 % (11.8-14.3); White Blood Cell 8.1 10^3/uL (4.4-10.8)
[2017-05-21 06:04] LABS: Basophils % (manual) 0 (0.0-2.0); Blast Cells 0; Metamyelocytes % 0; Promyelocytes % 0; Reactive Lymphocytes 0
[2017-05-21 06:07] LABS: BUN/Creatinine Ratio 47.2; Calcium 8.9 mg/dL (8.5-10.1); Potassium 3.1 mmol/L (3.5-5.1)
[2017-05-21] MEDS: metroNIDAZOLE 500 MG TAB PO SCH ×3 (06:28→22:06)
[2017-05-21 07:02] LABS: Band Neutrophils % (manual) 3; Eosinophils % (manual) 2 (0-7); Lymphocytes % (manual) 15 (10.0-50.0); Monocytes % (manual) 5 (0-12); Myelocytes % 2
[2017-05-21] MEDS: BOOST PLUS 8 ounce PO SCH ×3 (08:00→18:22)
[2017-05-21] MEDS: PRO-STAT 64 30ML PO SCH ×2 (08:00→18:22)
[2017-05-21 09:00] VITALS: BP 156/80
[2017-05-21] MEDS: ONDANSETRON HCL 4 MG/2 ML VIAL IV PRN ×3 (09:07→20:00)
[2017-05-21] MEDS: SODIUM CHLOR 0.9% PF (SALINE LOCK) 10ML VIAL IV SCH ×2 (10:00→22:06)
[2017-05-21] MEDS: FLUCONAZOLE 100 MG TAB PO SCH (11:06)
[2017-05-21] MEDS: FLORASTOR (S. BOULARDII) 250 MG CAP PO SCH (11:07)
[2017-05-21] MEDS: DIGOXIN 0.125 MG TAB PO SCH (11:08)
[2017-05-21] MEDS: amLODIPine BESYLATE 5 MG TAB PO SCH (11:08)
[2017-05-21] MEDS: LISINOPRIL 10 MG TAB PO SCH (11:09)
[2017-05-21] MEDS: PANTOPRAZOLE 40 MG TAB PO SCH (11:09)
[2017-05-21] MEDS: ENOXAPARIN SOD 40 MG/0.4 ML SYRINGE SC SCH (11:10)
[2017-05-21 13:00] VITALS: BP 133/73
[2017-05-21] MEDS ORDERED: LABETALOL HCL 5 MG/ML ML 20ML VIAL IV PRN (15:45)
[2017-05-21] MEDS ORDERED: MORPHINE SULFATE 4 MG/ML SYR/VIAL IV PRN (15:45)
[2017-05-21] MEDS ORDERED: POTASSIUM CHL 20 Meq TABLET PO ONE (16:30)
[2017-05-21 17:00] VITALS: BP 130/69
[2017-05-21] MEDS: LEVOFLOXACIN 500MG 100 ML IV SCH (18:34)
[2017-05-21 20:00] VITALS: BP 144/67
[2017-05-21] MEDS: METOPROLOL TARTRATE 50 MG TAB PO SCH (22:07)
[2017-05-21] MEDS: TEMAZEPAM 15 MG CAP PO PRN (23:15)
[2017-05-22] MEDS: IPRATROPIUM BROM 0.5 MG/2.5ML INH SOL NEB SCH ×4 (00:08→18:12)
[2017-05-22] MEDS: ALBUTEROL SULF 2.5 MG/0.5ML(0.5%) NEB SOLN NEB SCH ×4 (00:08→18:13)
[2017-05-22 02:10] VITALS: BP 136/77
[2017-05-22 05:38] VITALS: BP 137/74
[2017-05-22] MEDS: metroNIDAZOLE 500 MG TAB PO SCH ×3 (06:26→21:17)
[2017-05-22 08:00] VITALS: BP 133/76
[2017-05-22] MEDS: PRO-STAT 64 30ML PO SCH ×2 (08:00→18:00)
[2017-05-22] MEDS: BOOST PLUS 8 ounce PO SCH ×3 (08:00→18:00)
[2017-05-22 09:02] LABS: Potassium 3.5 mmol/L (3.5-5.1)
[2017-05-22] MEDS: SODIUM CHLOR 0.9% PF (SALINE LOCK) 10ML VIAL IV SCH ×2 (10:00→21:17)
[2017-05-22] MEDS: METOPROLOL TARTRATE 50 MG TAB PO SCH ×2 (10:00→21:17)
[2017-05-22] MEDS: FLUCONAZOLE 100 MG TAB PO SCH (10:00)
[2017-05-22] MEDS: DIGOXIN 0.125 MG TAB PO SCH (10:00)
[2017-05-22] MEDS ORDERED: ONDANSETRON ODT 4 MG TAB PO ONE (11:15)
[2017-05-22] MEDS ORDERED: THROAT LOZENGES(CEPASTAT) MT ONE (11:15)
[2017-05-22] MEDS: ENOXAPARIN SOD 40 MG/0.4 ML SYRINGE SC SCH (11:22)
[2017-05-22] MEDS: ONDANSETRON HCL 4 MG/2 ML VIAL IV PRN ×3 (11:22→21:31)
[2017-05-22] MEDS: PANTOPRAZOLE 40 MG TAB PO SCH (11:24)
[2017-05-22] MEDS: LISINOPRIL 10 MG TAB PO SCH (11:24)
[2017-05-22] MEDS: amLODIPine BESYLATE 5 MG TAB PO SCH (11:25)
[2017-05-22] MEDS: FLORASTOR (S. BOULARDII) 250 MG CAP PO SCH (11:26)
[2017-05-22 12:00] VITALS: BP 112/54
[2017-05-22] MEDS: THROAT LOZENGES(CEPASTAT) MT PRN (14:50)
[2017-05-22] MEDS: LORazepam 0.5 MG TAB PO PRN (16:07)
[2017-05-22 16:53] VITALS: BP 150/73
[2017-05-22] MEDS: LEVOFLOXACIN 500MG 100 ML IV SCH (18:00)
[2017-05-22] MEDS: TEMAZEPAM 15 MG CAP PO PRN (21:17)
[2017-05-22 22:06] VITALS: BP 140/63
[2017-05-23] MEDS: IPRATROPIUM BROM 0.5 MG/2.5ML INH SOL NEB SCH ×4 (00:13→20:21)
[2017-05-23] MEDS: ALBUTEROL SULF 2.5 MG/0.5ML(0.5%) NEB SOLN NEB SCH ×4 (00:14→20:21)
[2017-05-23] MEDS: THROAT LOZENGES(CEPASTAT) MT PRN ×2 (02:23→20:06)
[2017-05-23 05:25] VITALS: BP 140/68
[2017-05-23] MEDS: LORazepam 0.5 MG TAB PO PRN ×2 (06:04→20:49)
[2017-05-23] MEDS: ACETAMINOPHEN 650 mg PER 20 mL UD PO PRN (06:04)
[2017-05-23] MEDS: metroNIDAZOLE 500 MG TAB PO SCH ×3 (06:44→22:23)
[2017-05-23 07:56] VITALS: BP 144/70
[2017-05-23] MEDS: PRO-STAT 64 30ML PO SCH ×2 (08:00→18:06)
[2017-05-23] MEDS: BOOST PLUS 8 ounce PO SCH ×3 (08:00→18:00)
[2017-05-23] MEDS: SODIUM CHLOR 0.9% PF (SALINE LOCK) 10ML VIAL IV SCH ×2 (10:00→23:18)
[2017-05-23] MEDS: ENOXAPARIN SOD 40 MG/0.4 ML SYRINGE SC SCH (10:00)
[2017-05-23] MEDS: DIGOXIN 0.125 MG TAB PO SCH (10:00)
[2017-05-23] MEDS: FLORASTOR (S. BOULARDII) 250 MG CAP PO SCH (11:07)
[2017-05-23] MEDS: METOPROLOL TARTRATE 50 MG TAB PO SCH ×2 (11:08→22:24)
[2017-05-23] MEDS: PANTOPRAZOLE 40 MG TAB PO SCH (11:09)
[2017-05-23] MEDS: amLODIPine BESYLATE 5 MG TAB PO SCH (11:09)
[2017-05-23] MEDS: LISINOPRIL 10 MG TAB PO SCH (11:10)
[2017-05-23 12:00] VITALS: BP 120/64
[2017-05-23] MEDS: VANCOMYCIN HCL 125MG/5ML ORAL SOL PO SCH ×2 (12:26→19:41)
[2017-05-23 16:53] VITALS: BP 138/67
[2017-05-23 23:17] VITALS: BP 136/62
[2017-05-24] MEDS: VANCOMYCIN HCL 125MG/5ML ORAL SOL PO SCH ×2 (00:16→10:25)
[2017-05-24] MEDS: THROAT LOZENGES(CEPASTAT) MT PRN ×2 (03:20→10:25)
[2017-05-24] MEDS: ACETAMINOPHEN 650 mg PER 20 mL UD PO PRN (05:17)
[2017-05-24 05:34] VITALS: BP 140/66
[2017-05-24 05:52] LABS: Hematocrit 33.8 % (36.0-46.0); Hemoglobin 11.3 g/dL (12.2-16.2); Mean Corpuscular Hemoglobin 30.4 pg (28.0-32.0); Mean Corpuscular Hgb Conc. 33.5 g/dL (32.0-36.0); Mean Corpuscular Volume 90.6 fL (80.0-100.0); Platelet Count (auto) 272 10^3/uL (140-450); Red Blood Cells 3.72 10^6/uL (4.0-5.20); Red Cell Distribution Width 15.5 % (11.8-14.3)
[2017-05-24 06:08] LABS: Albumin 2.8 g/dL (3.4-5.0); BUN/Creatinine Ratio 34.1; Bilirubin, Total 0.7 mg/dL (0.2-1.0); Potassium 3.4 mmol/L (3.5-5.1); Total Protein 6.8 g/dL (6.4-8.2)
[2017-05-24 06:16] LABS: Basophils % (manual) 0 (0.0-2.0); Blast Cells 0; Eosinophils % (manual) 0 (0-7); Metamyelocytes % 0; Promyelocytes % 0; Reactive Lymphocytes 0
[2017-05-24] MEDS: IPRATROPIUM BROM 0.5 MG/2.5ML INH SOL NEB SCH ×2 (06:22→11:28)
[2017-05-24] MEDS: ALBUTEROL SULF 2.5 MG/0.5ML(0.5%) NEB SOLN NEB SCH ×2 (06:22→11:28)
[2017-05-24 06:38] LABS: Band Neutrophils % (manual) 1; Lymphocytes % (manual) 19 (10.0-50.0); Monocytes % (manual) 9 (0-12); Myelocytes % 5
[2017-05-24] MEDS: metroNIDAZOLE 500 MG TAB PO SCH ×2 (07:07→15:45)
[2017-05-24 09:00] VITALS: BP 125/70
[2017-05-24] MEDS ORDERED: LEVOFLOXACIN 500 MG TAB PO SCH (10:00)
[2017-05-24] MEDS: LISINOPRIL 10 MG TAB PO SCH ×2 (10:00→10:24)
[2017-05-24] MEDS: ONDANSETRON HCL 4 MG/2 ML VIAL IV PRN (10:18)
[2017-05-24] MEDS: FLORASTOR (S. BOULARDII) 250 MG CAP PO SCH (10:21)
[2017-05-24] MEDS: LORazepam 0.5 MG TAB PO PRN (10:22)
[2017-05-24] MEDS: DIGOXIN 0.125 MG TAB PO SCH (10:22)
[2017-05-24] MEDS: METOPROLOL TARTRATE 50 MG TAB PO SCH (10:23)
[2017-05-24] MEDS: PANTOPRAZOLE 40 MG TAB PO SCH (10:23)
[2017-05-24] MEDS: PRO-STAT 64 30ML PO SCH ×2 (10:24→17:44)
[2017-05-24] MEDS: ENOXAPARIN SOD 40 MG/0.4 ML SYRINGE SC SCH (10:24)
[2017-05-24] MEDS: SODIUM CHLOR 0.9% PF (SALINE LOCK) 10ML VIAL IV SCH (10:24)
[2017-05-24] MEDS: BOOST PLUS 8 ounce PO SCH ×3 (10:25→17:44)
[2017-05-24] MEDS ORDERED: FUROSEMIDE 20 MG/2 ML VIAL IV ONE (10:30)
[2017-05-24] MEDS ORDERED: POTASSIUM CHL 20 Meq TABLET PO ONE (10:30)
[2017-05-24] MEDS ORDERED: amLODIPine BESYLATE 5 MG TAB PO ONE (10:45)
[2017-05-24 13:00] VITALS: BP 143/78
[2017-05-24] MEDS ORDERED: ONDANSETRON ODT 4 MG TAB PO ONE (16:00)
[2017-05-24 16:15] VITALS: BP 124/70
[2017-05-25] MEDS ORDERED: amLODIPine BESYLATE 5 MG TAB PO SCH (10:00)
== END 2017-05-24 19:30 | DRG 335 ==
LOC: ER 17:02 → TELE 17:03 → TELE-WESTW 22:18 → ICU WEST 04-27 20:52 → DOU IN ICU 05-18 10:29 → CENTRAL 05-19 17:11 → TELE-CENTR 05-19 17:25
PROVIDERS: ADMIT Nurse Practitioner; ATTEND Internal Medicine
PROC: 5A1955Z Respiratory Ventilation, Greater than 96 Consecutive Hours (ICD-10-PCS; 2017-04-24)
PROC: 0BH17EZ Insertion of Endotracheal Airway into Trachea, Via Natural or Artificial Opening (ICD-10-PCS; 2017-04-24)
PROC: 0D988ZZ Drainage of Small Intestine, Via Natural or Artificial Opening Endoscopic (ICD-10-PCS; 2017-04-27)
PROC: 0DNB0ZZ Release Ileum, Open Approach (ICD-10-PCS; principal; 2017-04-27 12:47)
PROC: 0W993ZZ Drainage of Right Pleural Cavity, Percutaneous Approach (ICD-10-PCS; 2017-04-29)
PROC: 02H633Z Insertion of Infusion Device into Right Atrium, Percutaneous Approach (ICD-10-PCS; 2017-04-29)
PROC: 02HV33Z Insertion of Infusion Device into Superior Vena Cava, Percutaneous Approach (ICD-10-PCS; 2017-05-06)
PROC: 30233N1 Transfusion of Nonautologous Red Blood Cells into Peripheral Vein, Percutaneous Approach (ICD-10-PCS; 2017-05-06)
PROC: 5A09357 Assistance with Respiratory Ventilation, Less than 24 Consecutive Hours, Continuous Positive Airway Pressure (ICD-10-PCS; 2017-05-08)
PROC: 5A09357 Assistance with Respiratory Ventilation, Less than 24 Consecutive Hours, Continuous Positive Airway Pressure (ICD-10-PCS; 2017-05-09)
PROC: 0BD98ZX Extraction of Lingula Bronchus, Via Natural or Artificial Opening Endoscopic, Diagnostic (ICD-10-PCS; 2017-05-10)
PROC: 05HY33Z Insertion of Infusion Device into Upper Vein, Percutaneous Approach (ICD-10-PCS; 2017-05-11)
DX: K56.51 Intestinal adhesions [bands], with partial obstruction (principal); J15.0 Pneumonia due to Klebsiella pneumoniae; A41.01 Sepsis due to Methicillin susceptible Staphylococcus aureus; A41.59 Other Gram-negative sepsis; J15.211 Pneumonia due to Methicillin susceptible Staphylococcus aureus; A04.72 Enterocolitis due to Clostridium difficile, not specified as recurrent; J96.00 Acute respiratory failure, unspecified whether with hypoxia or hypercapnia; G93.40 Encephalopathy, unspecified; J90 Pleural effusion, not elsewhere classified; E44.0 Moderate protein-calorie malnutrition; J95.89 Other postprocedural complications and disorders of respiratory system, not elsewhere classified; J98.11 Atelectasis; D68.69 Other thrombophilia; J44.0 Chronic obstructive pulmonary disease with (acute) lower respiratory infection; D64.9 Anemia, unspecified; F41.9 Anxiety disorder, unspecified; Y83.8 Other surgical procedures as the cause of abnormal reaction of the patient, or of later complication, without mention of misadventure at the time of the procedure; I10 Essential (primary) hypertension; Z90.710 Acquired absence of both cervix and uterus; B96.1 Klebsiella pneumoniae [K. pneumoniae] as the cause of diseases classified elsewhere; E86.9 Volume depletion, unspecified; I48.91 Unspecified atrial fibrillation; N28.1 Cyst of kidney, acquired; T17.990A Other foreign object in respiratory tract, part unspecified in causing asphyxiation, initial encounter; Z82.49 Family history of ischemic heart disease and other diseases of the circulatory system; Z82.5 Family history of asthma and other chronic lower respiratory diseases; Z88.5 Allergy status to narcotic agent; Z79.899 Other long term (current) drug therapy; Z81.8 Family history of other mental and behavioral disorders; Z68.24 Body mass index [BMI] 24.0-24.9, adult
CPT/HCPCS: 31622; 32555; 36415; 36569; 36600; 71045; 74018; 74176; 74177; 74250; 76604; 76942; 80048; 80053; 80162; 81001; 82040; 82150; 82270; 82805; 82962; 83605; 83690; 83735; 83880; 83986; 84100; 84132; 84478; 84484; 85007; 85025; 85027; 85048; 85610; 85730; 86850; 86900; 86901; 86920; 87040; 87070; 87077; 87081; 87086; 87186; 87205; 87493; 88341; 89051; 92610; 93005; 93306; 94002; 94003; 94640; 94660; 94667; 94668; 94761; 96361; 96374; 96375; 97116; 97163; 97530; C9113; J0171; J0330; J0690; J1100; J1450; J1815; J1956; J2250; J2405; J2543; J2704; J3010; J3480; J3490; J7060; J7131; Q0162

== ENCOUNTER 2017-10-30 20:33 | Inpatient (IN) | payer MEDICARE, MEDICAID ==
[~2017-10-30] VITALS: Ht 165.1 cm; Wt 63.1 kg
[2017-10-30] MEDS ORDERED: LORazepam 2MG/ML-1ML VIAL IV ONE (21:00)
[2017-10-30 21:12] LABS: Basophils # (auto) 0 uL; Basophils % (auto) 0.6 % (0.0-2.0); Eosinophils # (auto) 0.1 uL; Eosinophils % (auto) 2.4 % (0.0-7.0); Hematocrit 32.7 % (36.0-46.0); Hemoglobin 11.3 g/dL (12.2-16.2); Lymphocytes # (auto) 1.6 uL; Lymphocytes % (auto) 27.4 % (10.0-50.0); Mean Corpuscular Hemoglobin 32.5 pg (28.0-32.0); Mean Corpuscular Hgb Conc. 34.5 g/dL (32.0-36.0); Mean Corpuscular Volume 94.2 fL (80.0-100.0); Monocytes # (auto) 0.5 uL; Monocytes % (auto) 7.9 % (0.0-12.0); Neutrophils # (auto) 3.6 uL; Neutrophils % (auto) 61.7 % (37.0-80.0); Platelet Count (auto) 290 10^3/uL (140-450); Red Blood Cells 3.47 10^6/uL (4.0-5.20); Red Cell Distribution Width 12.9 % (11.8-14.3); White Blood Cell 5.9 10^3/uL (4.4-10.8)
[2017-10-30 21:34] LABS: Alanine Aminotransferase 31 U/L (13-56); Albumin 3.9 g/dL (3.4-5.0); Alkaline Phosphatase 128 U/L (45-117); Anion Gap 10 (5-15); Aspartate Aminotransferase 22 U/L (15-37); BUN/Creatinine Ratio 19.9; Bilirubin, Total 0.4 mg/dL (0.2-1.0); Blood Urea Nitrogen 37 mg/dL (7-18); Calcium 9.7 mg/dL (8.5-10.1); Carbon Dioxide 22 mmol/L (21-32); Chloride 104 mmol/L (98-107); GFR African American 34 mL/min; GFR Non-African American 28 mL/min; Glucose 119 mg/dL (74-106); Magnesium 2.6 mg/dL (1.6-2.6); Potassium 3.7 mmol/L (3.5-5.1); Sodium 136 mmol/L (136-145); Total Protein 7.1 g/dL (6.4-8.2)
[2017-10-30 22:17] LABS: Urine Bacteria NONE SEEN /hpf (None Seen); Urine Blood Negative /uL (Negative); Urine Mucus FEW (None Seen); Urine Specific Gravity 1.006 (1.001-1.035); Urine WBC <1 /hpf (0 - 5)
[2017-10-31] MEDS ORDERED: NITROGLYCERIN 0.4 MG SL TAB SL PRN (01:00)
[2017-10-31] MEDS ORDERED: MORPHINE SULF INJ 2 MG/ML SYRINGE 1ML IV PRN (01:00)
[2017-10-31] MEDS ORDERED: ONDANSETRON HCL 4 MG/2 ML VIAL IV PRN (01:00)
[2017-10-31] MEDS ORDERED: DOCUSATE SOD 100 MG CAP PO PRN (01:00)
[2017-10-31 03:00] VITALS: BP 123/64
[2017-10-31] MEDS: TEMAZEPAM 15 MG CAP PO PRN ×2 (04:07→22:26)
[2017-10-31] MEDS ORDERED: GABA300C10 PO (04:17)
[2017-10-31] MEDS ORDERED: METH500T6 PO (04:22)
[2017-10-31] MEDS ORDERED: FURO20TA PO (04:22)
[2017-10-31] MEDS ORDERED: LISI2.5T47 PO (04:22)
[2017-10-31] MEDS ORDERED: TRAM50TA2 PO (04:22)
[2017-10-31] MEDS ORDERED: POTA10TA51 PO (04:22)
[2017-10-31 05:00] VITALS: BP 127/77
[2017-10-31 08:53] VITALS: BP 137/81
[2017-10-31] MEDS: PANTOPRAZOLE 40 MG TAB PO SCH (09:49)
[2017-10-31] MEDS: ASPirin 81 mg TAB PO SCH (09:49)
[2017-10-31] MEDS ORDERED: ENOXAPARIN SOD 30 MG/0.3 ML SYRINGE SC SCH (10:00)
[2017-10-31] MEDS ORDERED: amLODIPine BESYLATE 5 MG TAB PO SCH (10:00)
[2017-10-31] MEDS ORDERED: LORazepam 0.5 MG TAB PO PRN (11:15)
[2017-10-31] MEDS ORDERED: GABAPENTIN 300 MG CAP PO ONE (12:04)
[2017-10-31] MEDS: traMADol HCL 50 MG TAB PO PRN (12:13)
[2017-10-31] MEDS: SODIUM CHLORIDE 0.9% 1,000 ML IV SCH (12:14)
[2017-10-31 13:00] VITALS: BP 111/79
[2017-10-31 17:00] VITALS: BP 128/66
[2017-10-31] MEDS: GABAPENTIN 300 MG CAP PO SCH (21:10)
[2017-10-31 21:40] VITALS: BP 121/66
[2017-10-31] MEDS ORDERED: METOPROLOL TARTRATE 50 MG TAB PO SCH (22:00)
[2017-11-01] MEDS: SODIUM CHLORIDE 0.9% 1,000 ML IV SCH (02:22)
[2017-11-01 04:50] VITALS: BP 130/70
[2017-11-01 07:34] LABS: Albumin 3.3 g/dL (3.4-5.0); BUN/Creatinine Ratio 19.9; Bilirubin, Total 0.7 mg/dL (0.2-1.0); Calcium 8.8 mg/dL (8.5-10.1); Phosphorus 3.1 mg/dL (2.5-4.90); Potassium 4.4 mmol/L (3.5-5.1); Total Protein 6.1 g/dL (6.4-8.2); Uric Acid 5.7 mg/dL (2.6-6.0)
[2017-11-01 08:08] LABS: Basophils # (auto) 0 uL; Basophils % (auto) 0.8 % (0.0-2.0); Eosinophils # (auto) 0.2 uL; Hematocrit 30.8 % (36.0-46.0); Hemoglobin 10.6 g/dL (12.2-16.2); Lymphocytes # (auto) 1.4 uL; Lymphocytes % (auto) 34.7 % (10.0-50.0); Mean Corpuscular Hemoglobin 32.7 pg (28.0-32.0); Mean Corpuscular Hgb Conc. 34.3 g/dL (32.0-36.0); Mean Corpuscular Volume 95.3 fL (80.0-100.0); Monocytes # (auto) 0.4 uL; Monocytes % (auto) 8.7 % (0.0-12.0); Neutrophils % (auto) 49.8 % (37.0-80.0); Nucleated Red Blood Cells % 0.1 %; Platelet Count (auto) 217 10^3/uL (140-450); Red Blood Cells 3.23 10^6/uL (4.0-5.20); Red Cell Distribution Width 13.1 % (11.8-14.3); White Blood Cell 4.1 10^3/uL (4.4-10.8)
[2017-11-01] MEDS: traMADol HCL 50 MG TAB PO PRN (08:48)
[2017-11-01] MEDS: ASPirin 81 mg TAB PO SCH (08:48)
[2017-11-01] MEDS: GABAPENTIN 300 MG CAP PO SCH (08:48)
[2017-11-01] MEDS: PANTOPRAZOLE 40 MG TAB PO SCH (08:48)
[2017-11-01 09:00] VITALS: BP 116/71
[2017-11-01 11:04] VITALS: BP 108/79
== END 2017-11-01 12:55 | disposition home or self-care (01) | DRG 308 ==
LOC: ER 20:33 → EDBD 20:33 → TELE 20:34 → TELE-CENTR 10-31 03:12
PROVIDERS: ADMIT Nurse Practitioner; ATTEND Internal Medicine
DX: I47.1 Supraventricular tachycardia (principal); N17.0 Acute kidney failure with tubular necrosis; F41.9 Anxiety disorder, unspecified; I48.0 Paroxysmal atrial fibrillation; I12.9 Hypertensive chronic kidney disease with stage 1 through stage 4 chronic kidney disease, or unspecified chronic kidney disease; E86.0 Dehydration; I08.0 Rheumatic disorders of both mitral and aortic valves; I95.9 Hypotension, unspecified; N18.9 Chronic kidney disease, unspecified; N28.1 Cyst of kidney, acquired; Z82.49 Family history of ischemic heart disease and other diseases of the circulatory system; Z82.5 Family history of asthma and other chronic lower respiratory diseases; Z90.710 Acquired absence of both cervix and uterus; Z83.3 Family history of diabetes mellitus; Z81.8 Family history of other mental and behavioral disorders; Z83.6 Family history of other diseases of the respiratory system; Z83.79 Family history of other diseases of the digestive system; Z90.89 Acquired absence of other organs; Z84.89 Family history of other specified conditions; Z90.49 Acquired absence of other specified parts of digestive tract; Z88.6 Allergy status to analgesic agent; Z88.8 Allergy status to other drugs, medicaments and biological substances
CPT/HCPCS: 36415; 71045; 76775; 80053; 81001; 82306; 83735; 83880; 84100; 84443; 84484; 84550; 85025; 93005; 96374; 97163; J2405

== ENCOUNTER 2017-11-02 18:45 | Emergency (ER) | payer MEDICARE, MEDICAID ==
[~2017-11-02] VITALS: Ht 167.6 cm; Wt 63.5 kg
[~2017-11-02 18:45] MED LIST changes: +FURO20TA PO; +GABA300C10 PO; +LISI2.5T47 PO; +METH500T6 PO; +POTA10TA51 PO; +TRAM50TA2 PO
[2017-11-02 18:52] VITALS: BP 148/72
[2017-11-02] MEDS ORDERED: LORazepam 0.5 MG TAB ONE (19:06)
[2017-11-02] MEDS ORDERED: LORazepam 0.5 MG TAB PO ONE (19:15)
== END 2017-11-02 21:12 | disposition left against medical advice (07) ==
LOC: EDBD 18:45 → ER 18:51
DX: F41.9 Anxiety disorder, unspecified (principal); Z53.21 Procedure and treatment not carried out due to patient leaving prior to being seen by health care provider

== ENCOUNTER 2017-11-03 16:20 | Emergency (ER) | payer MEDICARE, MEDICAID ==
[~2017-11-03] VITALS: Ht 167.6 cm; Wt 59.0 kg
[2017-11-03] MEDS ORDERED: SODIUM CHLORIDE 0.9% 1,000 ML IVB ONE (16:26)
[2017-11-03] MEDS ORDERED: ASPirin 81 mg TAB PO ONE (16:30)
[2017-11-03] MEDS ORDERED: LORazepam 2MG/ML-1ML VIAL IV ONE (16:30)
[2017-11-03 17:04] LABS: Basophils # (auto) 0.1 uL; Basophils % (auto) 1.1 % (0.0-2.0); Eosinophils # (auto) 0.1 uL; Eosinophils % (auto) 1.8 % (0.0-7.0); Hematocrit 31.9 % (36.0-46.0); Hemoglobin 11.1 g/dL (12.2-16.2); Lymphocytes # (auto) 1.4 uL; Lymphocytes % (auto) 25.9 % (10.0-50.0); Mean Corpuscular Hemoglobin 32.5 pg (28.0-32.0); Mean Corpuscular Hgb Conc. 34.8 g/dL (32.0-36.0); Mean Corpuscular Volume 93.3 fL (80.0-100.0); Monocytes # (auto) 0.4 uL; Monocytes % (auto) 6.9 % (0.0-12.0); Neutrophils # (auto) 3.5 uL; Neutrophils % (auto) 64.3 % (37.0-80.0); Platelet Count (auto) 272 10^3/uL (140-450); Red Blood Cells 3.41 10^6/uL (4.0-5.20); White Blood Cell 5.5 10^3/uL (4.4-10.8)
[2017-11-03 17:06] VITALS: BP 129/71
[2017-11-03 17:26] LABS: BUN/Creatinine Ratio 18.5; Bilirubin, Total 0.5 mg/dL (0.2-1.0); Calcium 9.7 mg/dL (8.5-10.1); Potassium 3.5 mmol/L (3.5-5.1)
== END 2017-11-03 18:06 | disposition home or self-care (01) ==
LOC: ER 16:20 → EDBD 16:20 → ER 18:06
DX: F41.9 Anxiety disorder, unspecified (principal); E86.0 Dehydration; I48.0 Paroxysmal atrial fibrillation; N17.9 Acute kidney failure, unspecified; I10 Essential (primary) hypertension; Z88.6 Allergy status to analgesic agent; Z90.710 Acquired absence of both cervix and uterus
CPT/HCPCS: 36415; 80053; 84484; 85025; 93005; 96374; 99285; J2060; J7030

== ENCOUNTER 2017-11-10 13:47 | Inpatient (IN) | payer MEDICARE, MEDICAID ==
[~2017-11-10] VITALS: Ht 165.1 cm; Wt 65.2 kg
[2017-11-10 14:48] LABS: Basophils # (auto) 0 uL; Basophils % (auto) 0.7 % (0.0-2.0); Eosinophils # (auto) 0.1 uL; Hematocrit 29.2 % (36.0-46.0); Hemoglobin 10.1 g/dL (12.2-16.2); Lymphocytes # (auto) 1.3 uL; Lymphocytes % (auto) 27.2 % (10.0-50.0); Mean Corpuscular Hemoglobin 32.1 pg (28.0-32.0); Mean Corpuscular Hgb Conc. 34.6 g/dL (32.0-36.0); Mean Corpuscular Volume 92.7 fL (80.0-100.0); Monocytes # (auto) 0.3 uL; Monocytes % (auto) 7.1 % (0.0-12.0); Platelet Count (auto) 237 10^3/uL (140-450); Red Blood Cells 3.15 10^6/uL (4.0-5.20); Red Cell Distribution Width 12.8 % (11.8-14.3); White Blood Cell 4.7 10^3/uL (4.4-10.8)
[2017-11-10 15:21] LABS: Albumin 3.9 g/dL (3.4-5.0); BUN/Creatinine Ratio 11.9; Bilirubin, Total 0.6 mg/dL (0.2-1.0); Calcium 9.2 mg/dL (8.5-10.1); Potassium 3.4 mmol/L (3.5-5.1); Total Protein 6.8 g/dL (6.4-8.2)
[2017-11-10] MEDS ORDERED: MORPHINE SULFATE 4 MG/ML SYR/VIAL IV ONE (16:45)
[2017-11-10] MEDS ORDERED: ONDANSETRON HCL 4 MG/2 ML VIAL IV ONE (16:45)
[2017-11-10] MEDS ORDERED: PANTOPRAZOLE 40 MG/10 ML VIAL IV STA (16:45)
[2017-11-10] MEDS ORDERED: SODIUM CHLORIDE 0.9% 500 ML IVB ONE (16:45)
[2017-11-10 17:18] LABS: Urine Bacteria NONE SEEN /hpf (None Seen); Urine Blood Negative /uL (Negative); Urine Specific Gravity 1.005 (1.001-1.035); Urine WBC <1 /hpf (0 - 5)
[2017-11-10] MEDS ORDERED: cloNIDine HCL 0.1 MG TAB PO ONE (20:45)
[2017-11-10] MEDS ORDERED: NITROGLYCERIN 0.4 MG SL TAB SL PRN (20:45)
[2017-11-10] MEDS ORDERED: MORPHINE SULF INJ 2 MG/ML SYRINGE 1ML IV PRN (20:45)
[2017-11-10] MEDS ORDERED: TEMAZEPAM 15 MG CAP PO PRN (20:45)
[2017-11-10] MEDS ORDERED: POTASSIUM CHL 20 Meq TABLET PO ONE (20:45)
[2017-11-10] MEDS ORDERED: ONDANSETRON HCL 4 MG/2 ML VIAL IV PRN (20:45)
[2017-11-10] MEDS: GABAPENTIN 300 MG CAP PO SCH (22:07)
[2017-11-11] VITALS (7 sets, daily range): BP systolic 125–164; BP diastolic 66–76
[2017-11-11] MEDS: SODIUM CHLORIDE 0.9% 1,000 ML IV SCH ×2 (01:00→11:28)
[2017-11-11] MEDS ORDERED: METH-562 PO (02:23)
[2017-11-11] MEDS ORDERED: METO-169 PO (02:23)
[2017-11-11] MEDS ORDERED: ONDA4TAB5 PO (02:23)
[2017-11-11] MEDS ORDERED: PROM25TA5 PO (02:23)
[2017-11-11] MEDS ORDERED: HYDR12.56 PO (02:23)
[2017-11-11] MEDS ORDERED: CLON0.1T PO (02:23)
[2017-11-11] MEDS ORDERED: DIC10C PO (02:23)
[2017-11-11] MEDS ORDERED: DICL1GEL26 TOP (02:23)
[2017-11-11] MEDS ORDERED: PANT40TA2 PO (02:23)
[2017-11-11 06:24] LABS: Basophils # (auto) 0 uL; Basophils % (auto) 0.8 % (0.0-2.0); Eosinophils # (auto) 0.1 uL; Eosinophils % (auto) 3.8 % (0.0-7.0); Hematocrit 27.1 % (36.0-46.0); Hemoglobin 9.5 g/dL (12.2-16.2); Lymphocytes # (auto) 1.4 uL; Mean Corpuscular Hemoglobin 32.9 pg (28.0-32.0); Mean Corpuscular Hgb Conc. 35.1 g/dL (32.0-36.0); Mean Corpuscular Volume 93.7 fL (80.0-100.0); Monocytes # (auto) 0.4 uL; Monocytes % (auto) 10.8 % (0.0-12.0); Neutrophils % (auto) 49.6 % (37.0-80.0); Nucleated Red Blood Cells % 0.1 %; Platelet Count (auto) 205 10^3/uL (140-450); Red Blood Cells 2.89 10^6/uL (4.0-5.20); Red Cell Distribution Width 12.8 % (11.8-14.3)
[2017-11-11 06:39] LABS: Albumin 3.5 g/dL (3.4-5.0); Bilirubin, Total 0.7 mg/dL (0.2-1.0); Calcium 8.7 mg/dL (8.5-10.1); Potassium 3.5 mmol/L (3.5-5.1)
[2017-11-11] MEDS ORDERED: FUROSEMIDE 20 MG TAB PO SCH (10:00)
[2017-11-11] MEDS ORDERED: PANTOPRAZOLE 40 MG TAB PO ONE (10:00)
[2017-11-11] MEDS ORDERED: LISINOPRIL 5 MG TAB PO SCH (10:00)
[2017-11-11] MEDS ORDERED: POTASSIUM CHL 10 Meq TABLET PO SCH (10:00)
[2017-11-11] MEDS ORDERED: FAMOTIDINE 20 MG TAB PO SCH (10:00)
[2017-11-11] MEDS ORDERED: METOPROLOL SUCCINATE XL 50 MG TAB PO ONE (10:00)
[2017-11-11] MEDS: GABAPENTIN 300 MG CAP PO SCH ×5 (11:25→21:42)
[2017-11-11] MEDS: METOPROLOL SUCCINATE XL 50 MG TAB PO SCH (11:26)
[2017-11-11] MEDS: amLODIPine BESYLATE 5 MG TAB PO SCH (11:26)
[2017-11-11] MEDS: PANTOPRAZOLE 40 MG TAB PO SCH (11:27)
[2017-11-11] MEDS: ACETAMINOPHEN 325 MG TAB PO PRN (11:31)
[2017-11-11 13:55] LABS: INR 1.03 (0.9-1.15); Partial Thromboplastin Time 30.1 sec (23.78-33.04)
[2017-11-11] MEDS: HYDROcodone-ACET 5/325MG TAB PO PRN (19:30)
[2017-11-11] MEDS ORDERED: LORazepam 0.5 MG TAB PO ONE (21:00)
[2017-11-12 05:00] VITALS: BP 129/74
[2017-11-12 05:01] LABS: Basophils # (auto) 0 uL; Basophils % (auto) 0.6 % (0.0-2.0); Eosinophils # (auto) 0.1 uL; Eosinophils % (auto) 3.5 % (0.0-7.0); Hematocrit 30.8 % (36.0-46.0); Hemoglobin 10.7 g/dL (12.2-16.2); Lymphocytes # (auto) 1.3 uL; Lymphocytes % (auto) 29.8 % (10.0-50.0); Mean Corpuscular Hemoglobin 32.4 pg (28.0-32.0); Mean Corpuscular Hgb Conc. 34.7 g/dL (32.0-36.0); Mean Corpuscular Volume 93.5 fL (80.0-100.0); Monocytes # (auto) 0.4 uL; Monocytes % (auto) 9.1 % (0.0-12.0); Neutrophils # (auto) 2.4 uL; Nucleated Red Blood Cells % 0.1 %; Platelet Count (auto) 246 10^3/uL (140-450); Red Blood Cells 3.29 10^6/uL (4.0-5.20); Red Cell Distribution Width 12.8 % (11.8-14.3); White Blood Cell 4.2 10^3/uL (4.4-10.8)
[2017-11-12 05:14] LABS: Partial Thromboplastin Time 28.2 sec (23.78-33.04); Prothrombin Time 10.7 sec (9.27-12.13)
[2017-11-12 05:18] LABS: BUN/Creatinine Ratio 14.5; Calcium 8.8 mg/dL (8.5-10.1); Potassium 4.1 mmol/L (3.5-5.1)
[2017-11-12] MEDS: GABAPENTIN 300 MG CAP PO SCH ×3 (06:08→22:28)
[2017-11-12 08:00] VITALS: BP 160/75
[2017-11-12] MEDS: ACETAMINOPHEN 325 MG TAB PO PRN ×3 (08:13→20:22)
[2017-11-12 08:23] VITALS: BP 160/75
[2017-11-12] MEDS: PANTOPRAZOLE 40 MG TAB PO SCH (09:43)
[2017-11-12] MEDS: amLODIPine BESYLATE 5 MG TAB PO SCH (09:43)
[2017-11-12] MEDS: METOPROLOL SUCCINATE XL 50 MG TAB PO SCH (09:43)
[2017-11-12] MEDS: SODIUM CHLORIDE 0.9% 1,000 ML IV SCH (09:43)
[2017-11-12 12:06] VITALS: BP 132/71
[2017-11-12] MEDS ORDERED: LORazepam 2MG/ML-1ML VIAL IM ONE (13:15)
[2017-11-12 16:45] VITALS: BP 137/72
[2017-11-12] MEDS: HYDROcodone-ACET 5/325MG TAB PO PRN (17:06)
[2017-11-12 22:00] VITALS: BP 132/72
[2017-11-13] MEDS: HYDROcodone-ACET 5/325MG TAB PO PRN ×3 (00:03→15:28)
[2017-11-13] MEDS: SODIUM CHLORIDE 0.9% 1,000 ML IV SCH ×2 (02:55→15:20)
[2017-11-13 04:58] VITALS: BP 153/57
[2017-11-13] MEDS: GABAPENTIN 300 MG CAP PO SCH ×3 (06:01→21:32)
[2017-11-13 07:28] LABS: Basophils # (auto) 0 uL; Basophils % (auto) 0.9 % (0.0-2.0); Eosinophils # (auto) 0.3 uL; Eosinophils % (auto) 5.2 % (0.0-7.0); Hemoglobin 11.3 g/dL (12.2-16.2); Lymphocytes # (auto) 1.3 uL; Lymphocytes % (auto) 26.2 % (10.0-50.0); Mean Corpuscular Hemoglobin 32.5 pg (28.0-32.0); Mean Corpuscular Hgb Conc. 34.2 g/dL (32.0-36.0); Monocytes # (auto) 0.4 uL; Monocytes % (auto) 8.2 % (0.0-12.0); Neutrophils % (auto) 59.5 % (37.0-80.0); Nucleated Red Blood Cells % 0.1 %; Platelet Count (auto) 227 10^3/uL (140-450); Red Blood Cells 3.48 10^6/uL (4.0-5.20); Red Cell Distribution Width 13.3 % (11.8-14.3)
[2017-11-13 07:52] LABS: Albumin 3.4 g/dL (3.4-5.0); BUN/Creatinine Ratio 15.4; Bilirubin, Total 0.5 mg/dL (0.2-1.0); Calcium 8.9 mg/dL (8.5-10.1); Potassium 4.2 mmol/L (3.5-5.1); Total Protein 6.2 g/dL (6.4-8.2)
[2017-11-13 08:20] VITALS: BP 144/79
[2017-11-13] MEDS: PANTOPRAZOLE 40 MG TAB PO SCH (10:43)
[2017-11-13] MEDS: amLODIPine BESYLATE 5 MG TAB PO SCH (10:43)
[2017-11-13] MEDS: DOCUSATE SOD 100 MG CAP PO PRN (10:44)
[2017-11-13] MEDS: METOPROLOL SUCCINATE XL 50 MG TAB PO SCH (10:47)
[2017-11-13 12:10] VITALS: BP 137/75
[2017-11-13] MEDS: MORPHINE SULF INJ 2 MG/ML SYRINGE 1ML IV PRN ×2 (16:40→21:33)
[2017-11-13 17:24] VITALS: BP 148/75
[2017-11-13 21:30] VITALS: BP 145/72
[2017-11-14] MEDS: SODIUM CHLORIDE 0.9% 1,000 ML IV SCH ×2 (04:40→18:00)
[2017-11-14 04:59] VITALS: BP 143/77
[2017-11-14] MEDS: GABAPENTIN 300 MG CAP PO SCH ×3 (06:00→20:55)
[2017-11-14] MEDS: LORazepam 2MG/ML-1ML VIAL IV PRN ×3 (07:32→20:55)
[2017-11-14 08:00] VITALS: BP 167/75
[2017-11-14] MEDS ORDERED: ceFAZolin 1GM/50ML 50 ML IV ONE (08:08)
[2017-11-14] MEDS ORDERED: ROCURONIUM 10MG/ML 10ML VIAL IV ONE (08:23)
[2017-11-14] MEDS ORDERED: PROPOFOL 10 MG/ML 20 ML IV ONE (08:23)
[2017-11-14] MEDS ORDERED: fentaNYL CITRATE 100 MCG/2 ML VL ONE (08:23)
[2017-11-14 09:00] VITALS: BP 160/90
[2017-11-14] MEDS ORDERED: POVIDONE IODINE 10 % TOPICAL OINT 30GM TOP ONE (09:31)
[2017-11-14] MEDS ORDERED: HYDROmorphone HCL 2 MG/ML VL ONE ×2 (09:35→11:36)
[2017-11-14] MEDS ORDERED: hydrALAZINE HCL 20 MG/ML VL IV PRN (10:00)
[2017-11-14] MEDS: amLODIPine BESYLATE 5 MG TAB PO SCH (10:00)
[2017-11-14] MEDS: PANTOPRAZOLE 40 MG TAB PO SCH (10:00)
[2017-11-14] MEDS ORDERED: ONDANSETRON HCL 4 MG/2 ML VIAL IV ONE (10:00)
[2017-11-14] MEDS: METOPROLOL SUCCINATE XL 50 MG TAB PO SCH (10:00)
[2017-11-14] MEDS: MORPHINE SULFATE 4 MG/ML SYR/VIAL IV PRN ×4 (10:21→11:20)
[2017-11-14] MEDS ORDERED: HYDROmorphone HCL 2 MG/ML VL IV PRN (11:45)
[2017-11-14 12:58] VITALS: BP 164/74
[2017-11-14] MEDS ORDERED: PROMETHAZINE HCL 25 MG/ML 1ML ONE (14:14)
[2017-11-14] MEDS: MORPHINE SULF INJ 2 MG/ML SYRINGE 1ML IV PRN ×2 (14:17→19:38)
[2017-11-14] MEDS: PROMETHAZINE HCL 25 MG/ML 1ML IV PRN (14:20)
[2017-11-14] MEDS ORDERED: NEOSTIGMINE 1 MG/ML INJ (10mg/10ML VIAL) IV ONE (16:08)
[2017-11-14] MEDS ORDERED: GLYCOPYRROLATE 0.2 MG/ML 1ML VIAL IV ONE (16:08)
[2017-11-14 17:00] VITALS: BP 161/80
[2017-11-14] MEDS: HYDROcodone-ACET 5/325MG TAB PO PRN (17:16)
[2017-11-14] MEDS: LABETALOL HCL 5 MG/ML ML 20ML VIAL IV PRN ×2 (17:48→22:23)
[2017-11-14] MEDS: DOCUSATE SOD 100 MG CAP PO PRN (20:55)
[2017-11-14] MEDS: ACETAMINOPHEN 325 MG TAB PO PRN (20:55)
[2017-11-14 22:00] VITALS: BP 184/90
[2017-11-15] VITALS (8 sets, daily range): BP systolic 143–175; BP diastolic 64–99
[2017-11-15] MEDS: LABETALOL HCL 5 MG/ML ML 20ML VIAL IV PRN (00:07)
[2017-11-15] MEDS: MORPHINE SULF INJ 2 MG/ML SYRINGE 1ML IV PRN ×7 (00:08→20:47)
[2017-11-15] MEDS: PROMETHAZINE HCL 25 MG/ML 1ML IV PRN (00:08)
[2017-11-15] MEDS: GABAPENTIN 300 MG CAP PO SCH ×3 (06:07→21:52)
[2017-11-15 06:38] LABS: Basophils # (auto) 0 uL; Basophils % (auto) 0.2 % (0.0-2.0); Eosinophils # (auto) 0 uL; Eosinophils % (auto) 0.5 % (0.0-7.0); Hematocrit 35.8 % (36.0-46.0); Hemoglobin 11.8 g/dL (12.2-16.2); Lymphocytes # (auto) 1.3 uL; Lymphocytes % (auto) 15.3 % (10.0-50.0); Mean Corpuscular Hemoglobin 31.7 pg (28.0-32.0); Mean Corpuscular Volume 95.9 fL (80.0-100.0); Monocytes # (auto) 0.6 uL; Neutrophils # (auto) 6.5 uL; Platelet Count (auto) 232 10^3/uL (140-450); Red Blood Cells 3.73 10^6/uL (4.0-5.20); Red Cell Distribution Width 13.3 % (11.8-14.3); White Blood Cell 8.5 10^3/uL (4.4-10.8)
[2017-11-15 07:17] LABS: Albumin 3.6 g/dL (3.4-5.0); BUN/Creatinine Ratio 15.7; Bilirubin, Total 0.8 mg/dL (0.2-1.0); Total Protein 6.9 g/dL (6.4-8.2)
[2017-11-15] MEDS: amLODIPine BESYLATE 5 MG TAB PO SCH ×2 (08:32→13:04)
[2017-11-15] MEDS: PANTOPRAZOLE 40 MG TAB PO SCH (08:33)
[2017-11-15] MEDS: METOPROLOL SUCCINATE XL 50 MG TAB PO SCH (08:34)
[2017-11-15] MEDS: SODIUM CHLORIDE 0.9% 1,000 ML IV SCH ×2 (08:35→20:47)
[2017-11-15] MEDS ORDERED: LABETALOL HCL 5 MG/ML ML 20ML VIAL IV PRN (09:15)
[2017-11-15] MEDS: HYDROcodone-ACET 5/325MG TAB PO PRN ×2 (17:33→21:52)
[2017-11-16] VITALS (7 sets, daily range): BP systolic 126–144; BP diastolic 63–72
[2017-11-16] MEDS: MORPHINE SULF INJ 2 MG/ML SYRINGE 1ML IV PRN ×5 (05:42→18:54)
[2017-11-16] MEDS: GABAPENTIN 300 MG CAP PO SCH ×3 (05:42→21:50)
[2017-11-16 05:43] LABS: Basophils # (auto) 0 uL; Basophils % (auto) 0.6 % (0.0-2.0); Eosinophils # (auto) 0.2 uL; Eosinophils % (auto) 3.3 % (0.0-7.0); Hematocrit 32.2 % (36.0-46.0); Hemoglobin 11.2 g/dL (12.2-16.2); Lymphocytes # (auto) 1.5 uL; Lymphocytes % (auto) 23.7 % (10.0-50.0); Mean Corpuscular Hemoglobin 32.6 pg (28.0-32.0); Mean Corpuscular Hgb Conc. 34.6 g/dL (32.0-36.0); Mean Corpuscular Volume 94.1 fL (80.0-100.0); Monocytes # (auto) 0.5 uL; Monocytes % (auto) 8.2 % (0.0-12.0); Neutrophils % (auto) 64.2 % (37.0-80.0); Platelet Count (auto) 228 10^3/uL (140-450); Red Blood Cells 3.43 10^6/uL (4.0-5.20); Red Cell Distribution Width 13.1 % (11.8-14.3); White Blood Cell 6.3 10^3/uL (4.4-10.8)
[2017-11-16 06:09] LABS: BUN/Creatinine Ratio 16.9; Calcium 8.9 mg/dL (8.5-10.1)
[2017-11-16 06:11] LABS: Bilirubin, Total 0.9 mg/dL (0.2-1.0); Total Protein 6.1 g/dL (6.4-8.2)
[2017-11-16] MEDS: METOPROLOL SUCCINATE XL 50 MG TAB PO SCH (10:13)
[2017-11-16] MEDS: PANTOPRAZOLE 40 MG TAB PO SCH (10:13)
[2017-11-16] MEDS: amLODIPine BESYLATE 5 MG TAB PO SCH (10:15)
[2017-11-16] MEDS: HYDROcodone-ACET 5/325MG TAB PO PRN ×2 (12:46→19:57)
[2017-11-16] MEDS: LORazepam 2MG/ML-1ML VIAL IV PRN ×2 (15:32→21:50)
[2017-11-16] MEDS: DOCUSATE SOD 100 MG CAP PO PRN (19:57)
[2017-11-17] MEDS: MORPHINE SULF INJ 2 MG/ML SYRINGE 1ML IV PRN ×4 (00:40→20:06)
[2017-11-17 05:06] VITALS: BP 148/71
[2017-11-17] MEDS: GABAPENTIN 300 MG CAP PO SCH ×3 (05:36→21:40)
[2017-11-17] MEDS: HYDROcodone-ACET 5/325MG TAB PO PRN ×3 (08:49→23:02)
[2017-11-17 09:00] VITALS: BP 153/82
[2017-11-17] MEDS ORDERED: MILK OF MAGNESIA 30ML SUSP PO ONE (09:45)
[2017-11-17] MEDS: amLODIPine BESYLATE 5 MG TAB PO SCH (10:17)
[2017-11-17] MEDS: PANTOPRAZOLE 40 MG TAB PO SCH (10:17)
[2017-11-17] MEDS: METOPROLOL SUCCINATE XL 50 MG TAB PO SCH (10:18)
[2017-11-17 13:00] VITALS: BP 146/78
[2017-11-17 17:00] VITALS: BP 153/71
[2017-11-17] MEDS: LORazepam 2MG/ML-1ML VIAL IV PRN (17:17)
[2017-11-17 20:00] VITALS: BP 135/72
[2017-11-17 21:45] VITALS: BP 135/72
[2017-11-18] MEDS: LORazepam 2MG/ML-1ML VIAL IV PRN (00:51)
[2017-11-18] MEDS: ACETAMINOPHEN 325 MG TAB PO PRN (00:51)
[2017-11-18 04:48] VITALS: BP 138/67
[2017-11-18] MEDS: DOCUSATE SOD 100 MG CAP PO PRN (05:59)
[2017-11-18] MEDS: GABAPENTIN 300 MG CAP PO SCH ×2 (05:59→15:38)
[2017-11-18 06:08] LABS: Basophils # (auto) 0 uL; Basophils % (auto) 0.5 % (0.0-2.0); Eosinophils # (auto) 0.2 uL; Eosinophils % (auto) 3.5 % (0.0-7.0); Hematocrit 33.4 % (36.0-46.0); Hemoglobin 11.5 g/dL (12.2-16.2); Lymphocytes # (auto) 0.9 uL; Lymphocytes % (auto) 16.3 % (10.0-50.0); Mean Corpuscular Hemoglobin 32.4 pg (28.0-32.0); Mean Corpuscular Hgb Conc. 34.4 g/dL (32.0-36.0); Mean Corpuscular Volume 94.2 fL (80.0-100.0); Monocytes # (auto) 0.4 uL; Monocytes % (auto) 7.6 % (0.0-12.0); Neutrophils # (auto) 4.1 uL; Neutrophils % (auto) 72.1 % (37.0-80.0); Nucleated Red Blood Cells % 0.1 %; Platelet Count (auto) 232 10^3/uL (140-450); Red Blood Cells 3.55 10^6/uL (4.0-5.20); White Blood Cell 5.6 10^3/uL (4.4-10.8)
[2017-11-18 06:34] LABS: Potassium 4.2 mmol/L (3.5-5.1)
[2017-11-18 06:38] LABS: Albumin 3.2 g/dL (3.4-5.0); BUN/Creatinine Ratio 22.2
[2017-11-18 06:40] LABS: Bilirubin, Total 0.9 mg/dL (0.2-1.0); Total Protein 6.4 g/dL (6.4-8.2)
[2017-11-18 09:24] VITALS: BP 130/72
[2017-11-18] MEDS ORDERED: DOCUSATE SOD 100 MG CAP PO ONE (10:15)
[2017-11-18] MEDS ORDERED: LACTULOSE 20Gm/30ML SOLN PO ONE (10:15)
[2017-11-18] MEDS: PANTOPRAZOLE 40 MG TAB PO SCH (10:34)
[2017-11-18] MEDS: METOPROLOL SUCCINATE XL 50 MG TAB PO SCH (10:35)
[2017-11-18] MEDS: amLODIPine BESYLATE 5 MG TAB PO SCH (10:35)
[2017-11-18 13:00] VITALS: BP 143/73
[2017-11-18] MEDS: HYDROcodone-ACET 5/325MG TAB PO PRN (13:51)
[2017-11-18 15:57] VITALS: BP 115/78
== END 2017-11-18 16:35 | disposition home health service (06) | DRG 414 ==
LOC: ER 13:47 → CENTRAL 13:48 → TELE-CENTR 11-12 02:14
PROVIDERS: ADMIT Nurse Practitioner; ATTEND Internal Medicine
PROC: 0FT40ZZ Resection of Gallbladder, Open Approach (ICD-10-PCS; principal; 2017-11-14 08:29)
DX: K80.20 Calculus of gallbladder without cholecystitis without obstruction (principal); N17.0 Acute kidney failure with tubular necrosis; J98.11 Atelectasis; E87.5 Hyperkalemia; I48.0 Paroxysmal atrial fibrillation; D64.9 Anemia, unspecified; E66.9 Obesity, unspecified; F41.9 Anxiety disorder, unspecified; I10 Essential (primary) hypertension; I70.8 Atherosclerosis of other arteries; K21.9 Gastro-esophageal reflux disease without esophagitis; M47.896 Other spondylosis, lumbar region; M43.16 Spondylolisthesis, lumbar region; K66.0 Peritoneal adhesions (postprocedural) (postinfection); K82.8 Other specified diseases of gallbladder; Z82.49 Family history of ischemic heart disease and other diseases of the circulatory system; Z87.01 Personal history of pneumonia (recurrent); Z90.710 Acquired absence of both cervix and uterus; Z82.5 Family history of asthma and other chronic lower respiratory diseases; Z83.3 Family history of diabetes mellitus; Z81.8 Family history of other mental and behavioral disorders; Z83.79 Family history of other diseases of the digestive system; Z79.899 Other long term (current) drug therapy; Z88.5 Allergy status to narcotic agent; Z68.23 Body mass index [BMI] 23.0-23.9, adult
CPT/HCPCS: 36415; 71045; 71250; 74176; 76705; 80048; 80053; 81001; 83690; 84484; 85025; 85610; 85730; 86850; 86900; 86901; 87081; 93306; 94761; 96361; 96375; C9113; J0690; J2405; J2704

== ENCOUNTER 2017-11-20 12:00 | Inpatient (IN) | payer MEDICARE, MEDICAID ==
[~2017-11-20] VITALS: Ht 167.6 cm; Wt 57.0 kg
[~2017-11-20 12:00] MED LIST changes: +CLON0.1T PO; +DIC10C PO; +DICL1GEL26 TOP; +HYDR12.56 PO; -IBUP400T21 PO; -LISI2.5T47 PO; +METH-562 PO; -METH500T6 PO; +METO-169 PO; -OMEP20TA44 PO; +ONDA4TAB5 PO; +PANT40TA2 PO; -POTA10TA51 PO; +PROM25TA5 PO
[2017-11-20] MEDS ORDERED: SODIUM CHLORIDE 0.9% 1,000 ML IVB ONE (12:27)
[2017-11-20] MEDS ORDERED: MORPHINE SULF INJ 2 MG/ML SYRINGE 1ML IV ONE (12:45)
[2017-11-20] MEDS ORDERED: ONDANSETRON HCL 4 MG/2 ML VIAL IV ONE (12:45)
[2017-11-20 13:00] LABS: Basophils # (auto) 0 uL; Basophils % (auto) 0.5 % (0.0-2.0); Eosinophils # (auto) 0.1 uL; Eosinophils % (auto) 1.5 % (0.0-7.0); Hematocrit 32.1 % (36.0-46.0); Hemoglobin 10.8 g/dL (12.2-16.2); Lymphocytes % (auto) 22.6 % (10.0-50.0); Mean Corpuscular Hemoglobin 31.7 pg (28.0-32.0); Mean Corpuscular Hgb Conc. 33.8 g/dL (32.0-36.0); Mean Corpuscular Volume 93.8 fL (80.0-100.0); Monocytes # (auto) 0.3 uL; Monocytes % (auto) 6.3 % (0.0-12.0); Neutrophils % (auto) 69.1 % (37.0-80.0); Platelet Count (auto) 261 10^3/uL (140-450); Red Blood Cells 3.42 10^6/uL (4.0-5.20); Red Cell Distribution Width 12.8 % (11.8-14.3); White Blood Cell 4.3 10^3/uL (4.4-10.8)
[2017-11-20 13:12] LABS: INR 0.94 (0.9-1.15); Partial Thromboplastin Time 30.7 sec (23.78-33.04); Prothrombin Time 10.1 sec (9.27-12.13)
[2017-11-20 13:20] LABS: Alanine Aminotransferase 145 U/L (13-56); Albumin 3.2 g/dL (3.4-5.0); Amylase 43 U/L (25-115); Anion Gap 10 (5-15); Aspartate Aminotransferase 91 U/L (15-37); Blood Urea Nitrogen 16 mg/dL (7-18); Calcium 9.4 mg/dL (8.5-10.1); Carbon Dioxide 24 mmol/L (21-32); Chloride 106 mmol/L (98-107); GFR African American 90 mL/min; GFR Non-African American 75 mL/min; Glucose 99 mg/dL (74-106); Lipase 66 U/L (73-393); Magnesium 2.2 mg/dL (1.6-2.6); Potassium 3.8 mmol/L (3.5-5.1); Sodium 140 mmol/L (136-145)
[2017-11-20 13:25] LABS: Alkaline Phosphatase 455 U/L (45-117); Bilirubin, Total 0.4 mg/dL (0.2-1.0); Total Protein 6.7 g/dL (6.4-8.2)
[2017-11-20] MEDS ORDERED: LORazepam 2MG/ML-1ML VIAL IV ONE (13:45)
[2017-11-20] MEDS ORDERED: PROMETHAZINE HCL 25 MG/ML 1ML IV ONE (13:45)
[2017-11-20] MEDS ORDERED: GASTROGRAFIN 30 ML SOL ONE (15:29)
[2017-11-20] MEDS ORDERED: IOHEXOL 300 MG/ML 100ML BOTTLE IJ ONE (15:29)
[2017-11-20] MEDS ORDERED: MORPHINE SULF INJ 2 MG/ML SYRINGE 1ML IV PRN ×2 (15:30)
[2017-11-20] MEDS ORDERED: NITROGLYCERIN 0.4 MG SL TAB SL PRN (15:30)
[2017-11-20] MEDS ORDERED: PANTOPRAZOLE 40 MG/10 ML VIAL IV ONE (15:30)
[2017-11-20] MEDS ORDERED: cefTRIAXone 1GM/10ml IVPUSH 10 ML IV ONE (15:30)
[2017-11-20 16:15] LABS: Urine Bacteria FEW /hpf (None Seen); Urine Blood Negative /uL (Negative); Urine Specific Gravity 1.006 (1.001-1.035); Urine WBC 1 /hpf (0 - 5)
[2017-11-20] MEDS: SODIUM CHLORIDE 0.9% 1,000 ML IV SCH (16:30)
[2017-11-20] MEDS: PROMETHAZINE HCL 25 MG/ML 1ML IV PRN ×2 (17:37→23:00)
[2017-11-20] MEDS: metroNIDAZOLE 500MG/100ML 100 ML IV SCH (18:06)
[2017-11-20] MEDS: LORazepam 2MG/ML-1ML VIAL IV PRN (20:28)
[2017-11-20 21:55] LABS: Hematocrit 29.3 % (36.0-46.0); Hemoglobin 10.1 g/dL (12.2-16.2)
[2017-11-20 22:24] VITALS: BP 132/71
[2017-11-21] MEDS: metroNIDAZOLE 500MG/100ML 100 ML IV SCH ×2 (00:34→05:41)
[2017-11-21] MEDS: SODIUM CHLORIDE 0.9% 1,000 ML IV SCH ×2 (01:29→11:30)
[2017-11-21] MEDS: PROMETHAZINE HCL 25 MG/ML 1ML IV PRN ×2 (04:47→10:58)
[2017-11-21] MEDS: MORPHINE SULFATE 4 MG/ML SYR/VIAL IV PRN ×2 (04:50→18:05)
[2017-11-21 04:54] VITALS: BP 144/72
[2017-11-21] MEDS ORDERED: METOPROLOL SUCCINATE XL 50 MG TAB PO ONE (06:00)
[2017-11-21 07:49] LABS: Basophils # (auto) 0 uL; Basophils % (auto) 0.7 % (0.0-2.0); Eosinophils # (auto) 0.1 uL; Eosinophils % (auto) 3.5 % (0.0-7.0); Hematocrit 31.2 % (36.0-46.0); Hemoglobin 10.8 g/dL (12.2-16.2); Lymphocytes # (auto) 1.1 uL; Lymphocytes % (auto) 29.4 % (10.0-50.0); Mean Corpuscular Hemoglobin 32.7 pg (28.0-32.0); Mean Corpuscular Hgb Conc. 34.5 g/dL (32.0-36.0); Mean Corpuscular Volume 94.7 fL (80.0-100.0); Monocytes # (auto) 0.3 uL; Monocytes % (auto) 8.5 % (0.0-12.0); Neutrophils # (auto) 2.1 uL; Neutrophils % (auto) 57.9 % (37.0-80.0); Nucleated Red Blood Cells % 0.1 %; Platelet Count (auto) 238 10^3/uL (140-450); Red Blood Cells 3.29 10^6/uL (4.0-5.20); Red Cell Distribution Width 13.2 % (11.8-14.3); White Blood Cell 3.7 10^3/uL (4.4-10.8)
[2017-11-21 08:11] LABS: Albumin 3.2 g/dL (3.4-5.0); BUN/Creatinine Ratio 14.8; Bilirubin, Total 0.4 mg/dL (0.2-1.0); Calcium 8.9 mg/dL (8.5-10.1); Potassium 3.6 mmol/L (3.5-5.1); Total Protein 6.4 g/dL (6.4-8.2)
[2017-11-21 09:00] VITALS: BP 158/74
[2017-11-21] MEDS ORDERED: cefTRIAXone 1GM/10ml IVPUSH 10 ML IV SCH (09:00)
[2017-11-21] MEDS ORDERED: PANTOPRAZOLE 40 MG/10 ML VIAL IV SCH (10:00)
[2017-11-21] MEDS: MORPHINE SULF INJ 2 MG/ML SYRINGE 1ML IV PRN (11:48)
[2017-11-21 13:00] VITALS: BP 154/80
[2017-11-21] MEDS: LORazepam 2MG/ML-1ML VIAL IV PRN (14:50)
[2017-11-21] MEDS ORDERED: ACETAMINOPHEN 500 MG TAB PO PRN (16:45)
[2017-11-21 17:00] VITALS: BP 164/78
[2017-11-21] MEDS: cloNIDine HCL 0.1 MG TAB PO PRN (18:05)
[2017-11-21 18:45] VITALS: BP 148/72
[2017-11-21 22:00] VITALS: BP 136/70
[2017-11-21] MEDS: PANTOPRAZOLE 40 MG/10 ML VIAL IV SCH (23:00)
[2017-11-22] MEDS: PROMETHAZINE HCL 25 MG/ML 1ML IV PRN ×3 (00:42→15:27)
[2017-11-22] MEDS: SODIUM CHLORIDE 0.9% 1,000 ML IV SCH ×2 (00:52→11:03)
[2017-11-22] MEDS: LORazepam 2MG/ML-1ML VIAL IV PRN ×3 (02:25→21:16)
[2017-11-22 06:00] VITALS: BP 161/76
[2017-11-22] MEDS: cloNIDine HCL 0.1 MG TAB PO PRN ×2 (06:19→17:50)
[2017-11-22 08:14] LABS: Albumin 3.2 g/dL (3.4-5.0); BUN/Creatinine Ratio 13.2; Bilirubin, Total 0.4 mg/dL (0.2-1.0); Calcium 8.9 mg/dL (8.5-10.1); Potassium 3.8 mmol/L (3.5-5.1); Total Protein 6.3 g/dL (6.4-8.2)
[2017-11-22 09:00] VITALS: BP 159/78
[2017-11-22] MEDS: PANTOPRAZOLE 40 MG/10 ML VIAL IV SCH (09:24)
[2017-11-22] MEDS: METOPROLOL SUCCINATE XL 50 MG TAB PO SCH (09:24)
[2017-11-22] MEDS ORDERED: GASTROGRAFIN 30 ML SOL ONE ×4 (09:51→09:52)
[2017-11-22] MEDS ORDERED: EZ PAQUE SUSP 12OZ BTL ONE (09:52)
[2017-11-22] MEDS ORDERED: GASTROGRAFIN 120 ML SOL ONE (09:52)
[2017-11-22] MEDS ORDERED: BARIUM SULFATE 98% 340 GM PWDR ONE (09:52)
[2017-11-22] MEDS ORDERED: EZ-GAS II GRANULES (RADIOLOGY USE) PO ONE (09:53)
[2017-11-22] MEDS ORDERED: FLUCONAZOLE 200MG/100ML 100 ML IV ONE (10:45)
[2017-11-22] MEDS: MORPHINE SULFATE 4 MG/ML SYR/VIAL IV PRN (10:48)
[2017-11-22 13:00] VITALS: BP 158/78
[2017-11-22] MEDS: MORPHINE SULF INJ 2 MG/ML SYRINGE 1ML IV PRN (16:10)
[2017-11-22] MEDS: SUCRALFATE 1 GM/10 ML ORAL SUSP PO SCH ×2 (16:56→21:15)
[2017-11-22 17:00] VITALS: BP 161/75
[2017-11-22] MEDS: PANTOPRAZOLE 40 MG TAB PO SCH (21:16)
[2017-11-22 22:00] VITALS: BP 136/70
[2017-11-23] VITALS (7 sets, daily range): BP systolic 147–174; BP diastolic 68–84
[2017-11-23] MEDS: SODIUM CHLORIDE 0.9% 1,000 ML IV SCH (03:52)
[2017-11-23] MEDS: SUCRALFATE 1 GM/10 ML ORAL SUSP PO SCH ×4 (06:06→23:27)
[2017-11-23] MEDS: cloNIDine HCL 0.1 MG TAB PO PRN ×2 (06:07→16:30)
[2017-11-23 07:23] LABS: Basophils # (auto) 0 uL; Basophils % (auto) 0.8 % (0.0-2.0); Eosinophils # (auto) 0.1 uL; Eosinophils % (auto) 4.1 % (0.0-7.0); Hematocrit 31.7 % (36.0-46.0); Hemoglobin 10.9 g/dL (12.2-16.2); Lymphocytes # (auto) 0.8 uL; Lymphocytes % (auto) 22.3 % (10.0-50.0); Mean Corpuscular Hemoglobin 32.1 pg (28.0-32.0); Mean Corpuscular Hgb Conc. 34.5 g/dL (32.0-36.0); Mean Corpuscular Volume 93.2 fL (80.0-100.0); Monocytes # (auto) 0.3 uL; Monocytes % (auto) 7.9 % (0.0-12.0); Neutrophils # (auto) 2.3 uL; Neutrophils % (auto) 64.9 % (37.0-80.0); Nucleated Red Blood Cells % 0.1 %; Platelet Count (auto) 281 10^3/uL (140-450); White Blood Cell 3.6 10^3/uL (4.4-10.8)
[2017-11-23 07:48] LABS: Albumin 3.4 g/dL (3.4-5.0); BUN/Creatinine Ratio 15.2; Bilirubin, Total 0.4 mg/dL (0.2-1.0); Calcium 9.1 mg/dL (8.5-10.1); Potassium 3.7 mmol/L (3.5-5.1); Total Protein 6.4 g/dL (6.4-8.2)
[2017-11-23] MEDS: METOPROLOL SUCCINATE XL 50 MG TAB PO SCH (09:05)
[2017-11-23] MEDS: PANTOPRAZOLE 40 MG TAB PO SCH ×2 (09:05→23:27)
[2017-11-23] MEDS ORDERED: FLUCONAZOLE 200MG/100ML 100 ML IV SCH (10:00)
[2017-11-23] MEDS: PROMETHAZINE HCL 25 MG/ML 1ML IV PRN ×2 (10:24→15:11)
[2017-11-23] MEDS: MORPHINE SULF INJ 2 MG/ML SYRINGE 1ML IV PRN ×2 (11:35→15:52)
[2017-11-23] MEDS: LORazepam 2MG/ML-1ML VIAL IV PRN ×2 (16:29→23:27)
[2017-11-24] MEDS: MORPHINE SULF INJ 2 MG/ML SYRINGE 1ML IV PRN ×2 (04:00→16:14)
[2017-11-24] MEDS: SUCRALFATE 1 GM/10 ML ORAL SUSP PO SCH ×4 (05:53→23:30)
[2017-11-24] MEDS: cloNIDine HCL 0.1 MG TAB PO PRN (06:35)
[2017-11-24] MEDS ORDERED: LIDOCAINE VISCOUS 2% 15ML UD ONE (08:13)
[2017-11-24] MEDS ORDERED: NALOXONE HCL 0.4 MG/ML VIAL ONE (08:13)
[2017-11-24] MEDS ORDERED: FLUMAZENIL 0.1 MG/ML INJ 10ML MDV IV ONE (08:13)
[2017-11-24] MEDS ORDERED: SODIUM CHLORIDE LOCK 10 ML ONE (08:13)
[2017-11-24 09:00] VITALS: BP 161/85
[2017-11-24] MEDS: fentaNYL CITRATE 100 MCG/2 ML VL ONE ×2 (09:37→09:40)
[2017-11-24] MEDS: MIDAZOLAM HCL 5 MG/ML-1ML VIAL ONE ×2 (09:37→09:40)
[2017-11-24] MEDS: METOPROLOL SUCCINATE XL 50 MG TAB PO SCH (10:00)
[2017-11-24] MEDS: PANTOPRAZOLE 40 MG TAB PO SCH ×2 (11:14→23:30)
[2017-11-24 13:00] VITALS: BP 128/63
[2017-11-24] MEDS: PROMETHAZINE HCL 25 MG/ML 1ML IV PRN (16:05)
[2017-11-24 16:43] VITALS: BP 141/78
[2017-11-24] MEDS: LORazepam 0.5 MG TAB PO PRN (18:28)
[2017-11-24] MEDS: MORPHINE SULFATE 4 MG/ML SYR/VIAL IV PRN (20:15)
[2017-11-24 22:00] VITALS: BP 150/75
[2017-11-24] MEDS ORDERED: ALPRAZolam 0.25 MG TAB PO SCH (22:00)
[2017-11-25] MEDS: MORPHINE SULFATE 4 MG/ML SYR/VIAL IV PRN ×6 (02:15→15:56)
[2017-11-25] MEDS: LORazepam 0.5 MG TAB PO PRN (02:16)
[2017-11-25] MEDS: PROMETHAZINE HCL 25 MG/ML 1ML IV PRN ×3 (03:14→15:55)
[2017-11-25 04:39] VITALS: BP 172/85
[2017-11-25] MEDS: SUCRALFATE 1 GM/10 ML ORAL SUSP PO SCH ×3 (06:40→16:27)
[2017-11-25 07:22] LABS: Albumin 3.7 g/dL (3.4-5.0); BUN/Creatinine Ratio 12.4; Bilirubin, Total 0.5 mg/dL (0.2-1.0); Calcium 9.3 mg/dL (8.5-10.1)
[2017-11-25 08:00] VITALS: BP 134/76
[2017-11-25 08:46] VITALS: BP 134/76
[2017-11-25] MEDS ORDERED: LORazepam 2MG/ML-1ML VIAL IV ONE (10:30)
[2017-11-25] MEDS ORDERED: DICYCLOMINE HCL 10 MG CAP PO ONE (10:30)
[2017-11-25] MEDS: PANTOPRAZOLE 40 MG TAB PO SCH (10:39)
[2017-11-25] MEDS: METOPROLOL SUCCINATE XL 50 MG TAB PO SCH (10:41)
[2017-11-25 10:56] VITALS: BP 134/76
[2017-11-25 12:30] VITALS: BP 166/78
[2017-11-25 16:13] VITALS: BP 134/83
== END 2017-11-25 17:10 | disposition home or self-care (01) | DRG 392 ==
LOC: EDBD 12:00 → ER 12:00 → TELE 12:01 → TELE-CENTR 21:06 → CENTRAL 11-21 12:50
PROVIDERS: ADMIT Internal Medicine; ATTEND Internal Medicine
PROC: 0DB68ZX Excision of Stomach, Via Natural or Artificial Opening Endoscopic, Diagnostic (ICD-10-PCS; principal; 2017-11-24 09:34)
DX: K29.70 Gastritis, unspecified, without bleeding (principal); E44.1 Mild protein-calorie malnutrition; D64.9 Anemia, unspecified; I48.0 Paroxysmal atrial fibrillation; I10 Essential (primary) hypertension; F41.9 Anxiety disorder, unspecified; K58.9 Irritable bowel syndrome, unspecified; J44.9 Chronic obstructive pulmonary disease, unspecified; K59.09 Other constipation; M51.36 Other intervertebral disc degeneration, lumbar region; N28.1 Cyst of kidney, acquired; Z82.49 Family history of ischemic heart disease and other diseases of the circulatory system; Z90.49 Acquired absence of other specified parts of digestive tract; Z90.710 Acquired absence of both cervix and uterus; Z81.8 Family history of other mental and behavioral disorders; Z83.79 Family history of other diseases of the digestive system; Z83.3 Family history of diabetes mellitus; Z84.89 Family history of other specified conditions; Z88.5 Allergy status to narcotic agent; Z68.20 Body mass index [BMI] 20.0-20.9, adult
CPT/HCPCS: 36415; 43239; 71045; 74176; 74177; 74247; 78226; 80053; 81001; 82150; 83690; 83735; 84484; 85014; 85018; 85025; 85045; 85610; 85652; 85730; 87081; 93005; 96361; 96365; 96375; 97110; 97116; 97163; 97530; C9113; J0696; J1450; J2250; J2405; J3490

== ENCOUNTER 2017-12-21 22:23 | Emergency (ER) | payer MEDICARE, MEDICAID ==
[~2017-12-21] VITALS: Ht 162.6 cm; Wt 68.0 kg
[~2017-12-21 22:23] MED LIST changes: -AML5T PO
[2017-12-22 00:26] LABS: Basophils # (auto) 0 uL; Basophils % (auto) 0.5 % (0.0-2.0); Eosinophils # (auto) 0.1 uL; Eosinophils % (auto) 2.6 % (0.0-7.0); Hematocrit 34.8 % (36.0-46.0); Lymphocytes # (auto) 1.6 uL; Lymphocytes % (auto) 31.2 % (10.0-50.0); Mean Corpuscular Hemoglobin 31.2 pg (28.0-32.0); Mean Corpuscular Hgb Conc. 34.4 g/dL (32.0-36.0); Mean Corpuscular Volume 90.6 fL (80.0-100.0); Monocytes # (auto) 0.4 uL; Monocytes % (auto) 6.9 % (0.0-12.0); Neutrophils % (auto) 58.8 % (37.0-80.0); Nucleated Red Blood Cells % 0.1 %; Platelet Count (auto) 215 10^3/uL (140-450); Red Blood Cells 3.84 10^6/uL (4.0-5.20); White Blood Cell 5.1 10^3/uL (4.4-10.8)
[2017-12-22 00:43] LABS: Albumin 3.9 g/dL (3.4-5.0); BUN/Creatinine Ratio 12.5; Calcium 10.1 mg/dL (8.5-10.1); Potassium 3.5 mmol/L (3.5-5.1)
[2017-12-22] MEDS ORDERED: SODIUM CHLORIDE 0.9% 500 ML IVB ONE (00:43)
[2017-12-22] MEDS ORDERED: HYDROmorphone HCL 2 MG/ML VL IV ONE (00:45)
[2017-12-22] MEDS ORDERED: LORazepam 2MG/ML-1ML VIAL IV ONE (00:45)
[2017-12-22] MEDS ORDERED: ONDANSETRON HCL 4 MG/2 ML VIAL IV ONE (00:45)
[2017-12-22 00:46] LABS: Bilirubin, Total 0.6 mg/dL (0.2-1.0); Total Protein 7.2 g/dL (6.4-8.2)
[2017-12-22 01:12] LABS: INR 0.96 (0.9-1.15); Partial Thromboplastin Time 29.9 sec (23.78-33.04); Prothrombin Time 10.3 sec (9.27-12.13)
[2017-12-22 05:00] VITALS: BP 140/75
== END 2017-12-22 05:50 | disposition home or self-care (01) ==
LOC: EDBD 22:23 → ER 22:28
DX: R10.9 Unspecified abdominal pain (principal); F41.9 Anxiety disorder, unspecified; I10 Essential (primary) hypertension; Z88.5 Allergy status to narcotic agent; Z79.899 Other long term (current) drug therapy; Z90.49 Acquired absence of other specified parts of digestive tract; Z90.710 Acquired absence of both cervix and uterus
CPT/HCPCS: 36415; 74176; 80053; 82150; 83690; 83735; 85025; 85610; 85730; 93005; 94761; 96374; 96375; 99285; J1170; J2060; J2405; J7030

== ENCOUNTER 2017-12-25 17:27 | Inpatient (IN) | payer MEDICARE, MEDICAID ==
[~2017-12-25] VITALS: Ht 165.1 cm; Wt 54.9 kg
[2017-12-25 18:45] LABS: Basophils # (auto) 0 uL; Basophils % (auto) 0.6 % (0.0-2.0); Eosinophils # (auto) 0.1 uL; Eosinophils % (auto) 1.2 % (0.0-7.0); Hemoglobin 13.3 g/dL (12.2-16.2); Lymphocytes # (auto) 1.7 uL; Lymphocytes % (auto) 27.2 % (10.0-50.0); Mean Corpuscular Hemoglobin 31.1 pg (28.0-32.0); Mean Corpuscular Hgb Conc. 34.1 g/dL (32.0-36.0); Mean Corpuscular Volume 91.1 fL (80.0-100.0); Monocytes # (auto) 0.5 uL; Monocytes % (auto) 7.6 % (0.0-12.0); Neutrophils # (auto) 4.1 uL; Neutrophils % (auto) 63.4 % (37.0-80.0); Nucleated Red Blood Cells % 0.1 %; Platelet Count (auto) 322 10^3/uL (140-450); Red Blood Cells 4.28 10^6/uL (4.0-5.20); Red Cell Distribution Width 12.9 % (11.8-14.3); White Blood Cell 6.4 10^3/uL (4.4-10.8)
[2017-12-25 19:04] LABS: Albumin 4.4 g/dL (3.4-5.0); BUN/Creatinine Ratio 12.7; Bilirubin, Total 0.7 mg/dL (0.2-1.0); Calcium 9.7 mg/dL (8.5-10.1); Magnesium 2.1 mg/dL (1.6-2.6); Potassium 3.2 mmol/L (3.5-5.1); Total Protein 7.6 g/dL (6.4-8.2)
[2017-12-25] MEDS ORDERED: HYDROmorphone HCL 2 MG/ML VL IV ONE (19:45)
[2017-12-25] MEDS ORDERED: ONDANSETRON HCL 4 MG/2 ML VIAL IV ONE ×2 (19:45→23:00)
[2017-12-25 20:54] LABS: Amylase 78 U/L (25-115); Lipase 153 U/L (73-393)
[2017-12-26] MEDS ORDERED: LORazepam 0.5 MG TAB PO ONE (02:15)
[2017-12-26] MEDS ORDERED: cloNIDine HCL 0.1 MG TAB PO PRN (04:45)
[2017-12-26] MEDS ORDERED: ONDANSETRON HCL 4 MG/2 ML VIAL IV PRN (04:45)
[2017-12-26] MEDS ORDERED: MORPHINE SULFATE 4 MG/ML SYR/VIAL IV PRN (04:45)
[2017-12-26] MEDS ORDERED: ACETAMINOPHEN 500 MG TAB PO PRN (04:45)
[2017-12-26] MEDS: SODIUM CHLORIDE 0.9% 1,000 ML IV SCH ×2 (05:06→21:25)
[2017-12-26] MEDS ORDERED: POTASSIUM CHL 20 Meq TABLET PO ONE (06:30)
[2017-12-26 09:00] VITALS: BP 150/101
[2017-12-26] MEDS ORDERED: LORA-654 PO (09:41)
[2017-12-26] MEDS ORDERED: SUCR1TAB PO (09:41)
[2017-12-26] MEDS ORDERED: PANTOPRAZOLE 40 MG/10 ML VIAL IV SCH (10:00)
[2017-12-26] MEDS ORDERED: HCTZ 25 MG TAB PO SCH (10:00)
[2017-12-26 10:43] LABS: Basophils # (auto) 0 uL; Basophils % (auto) 0.4 % (0.0-2.0); Eosinophils # (auto) 0.1 uL; Eosinophils % (auto) 2.1 % (0.0-7.0); Hematocrit 33.2 % (36.0-46.0); Hemoglobin 11.2 g/dL (12.2-16.2); Lymphocytes # (auto) 1.2 uL; Lymphocytes % (auto) 26.7 % (10.0-50.0); Mean Corpuscular Hemoglobin 30.9 pg (28.0-32.0); Mean Corpuscular Hgb Conc. 33.8 g/dL (32.0-36.0); Mean Corpuscular Volume 91.4 fL (80.0-100.0); Monocytes # (auto) 0.4 uL; Monocytes % (auto) 8.1 % (0.0-12.0); Neutrophils # (auto) 2.8 uL; Neutrophils % (auto) 62.7 % (37.0-80.0); Platelet Count (auto) 238 10^3/uL (140-450); Red Blood Cells 3.63 10^6/uL (4.0-5.20); White Blood Cell 4.4 10^3/uL (4.4-10.8)
[2017-12-26] MEDS: METOPROLOL SUCCINATE XL 50 MG TAB PO SCH (10:58)
[2017-12-26 11:05] LABS: BUN/Creatinine Ratio 10.4
[2017-12-26 13:00] VITALS: BP 146/88
[2017-12-26] MEDS ORDERED: PROMETHAZINE HCL 25 MG/ML 1ML IV PRN (14:45)
[2017-12-26 17:00] VITALS: BP 157/85
[2017-12-26] MEDS: MORPHINE SULFATE 4 MG/ML SYR/VIAL IV PRN ×2 (17:00→23:00)
[2017-12-26] MEDS: HYOSCYAMINE SULF 0.125 MG ODT TAB PO PRN ×2 (17:01→20:30)
[2017-12-26] MEDS: LORazepam 0.5 MG TAB PO PRN (17:01)
[2017-12-26] MEDS ORDERED: PROPOFOL 100 ML IV ONE (20:29)
[2017-12-26 22:00] VITALS: BP 127/67
[2017-12-27 05:47] VITALS: BP 174/96
[2017-12-27] MEDS: HYOSCYAMINE SULF 0.125 MG ODT TAB PO PRN ×4 (06:05→19:46)
[2017-12-27 06:21] LABS: Calcium 9.5 mg/dL (8.5-10.1); Potassium 4.2 mmol/L (3.5-5.1)
[2017-12-27 08:00] VITALS: BP 156/88
[2017-12-27 09:00] VITALS: BP 156/88
[2017-12-27] MEDS: METOPROLOL SUCCINATE XL 50 MG TAB PO SCH (10:58)
[2017-12-27] MEDS: CITALOPRAM HYDROBR 20 MG TAB PO SCH (10:59)
[2017-12-27] MEDS: DOCUSATE SOD 100 MG CAP PO SCH ×2 (10:59→22:00)
[2017-12-27] MEDS: PANTOPRAZOLE 40 MG TAB PO SCH (10:59)
[2017-12-27] MEDS: MORPHINE SULFATE 4 MG/ML SYR/VIAL IV PRN ×2 (12:15→18:34)
[2017-12-27 13:00] VITALS: BP 146/80
[2017-12-27] MEDS: SODIUM CHLORIDE 0.9% 1,000 ML IV SCH (14:34)
[2017-12-27] MEDS: traMADol HCL 50 MG TAB PO PRN ×2 (14:35→19:49)
[2017-12-27] MEDS: ONDANSETRON HCL 4 MG/2 ML VIAL IV PRN (14:48)
[2017-12-27] MEDS: LORazepam 0.5 MG TAB PO PRN (14:49)
[2017-12-27 17:00] VITALS: BP 157/92
[2017-12-27 22:00] VITALS: BP 154/66
[2017-12-28 05:00] VITALS: BP 157/88
[2017-12-28 05:10] LABS: Calcium 8.7 mg/dL (8.5-10.1); Potassium 3.9 mmol/L (3.5-5.1)
[2017-12-28] MEDS: ONDANSETRON HCL 4 MG/2 ML VIAL IV PRN ×2 (06:52→13:22)
[2017-12-28] MEDS: MORPHINE SULFATE 4 MG/ML SYR/VIAL IV PRN ×2 (07:06→14:48)
[2017-12-28] MEDS: SODIUM CHLORIDE 0.9% 1,000 ML IV SCH (07:12)
[2017-12-28 07:43] VITALS: BP 142/74
[2017-12-28 08:00] VITALS: BP 156/88
[2017-12-28] MEDS: DOCUSATE SOD 100 MG CAP PO SCH (09:26)
[2017-12-28] MEDS: PANTOPRAZOLE 40 MG TAB PO SCH (09:26)
[2017-12-28] MEDS: CITALOPRAM HYDROBR 20 MG TAB PO SCH (09:26)
[2017-12-28] MEDS: METOPROLOL SUCCINATE XL 50 MG TAB PO SCH (09:30)
[2017-12-28 10:44] VITALS: BP 142/74
[2017-12-28] MEDS: LORazepam 0.5 MG TAB PO PRN (11:19)
[2017-12-28] MEDS: HYOSCYAMINE SULF 0.125 MG ODT TAB PO PRN (11:56)
[2017-12-28 12:03] VITALS: BP 168/77
== END 2017-12-28 16:30 | disposition home or self-care (01) | DRG 392 ==
LOC: EDUNIT# 17:27 → ER 17:27 → EDBD 17:27 → TELE 17:28 → TELE-CENTR 12-26 08:25
PROVIDERS: ADMIT Nurse Practitioner Family; ATTEND Internal Medicine
DX: K58.9 Irritable bowel syndrome, unspecified (principal); E87.1 Hypo-osmolality and hyponatremia; E86.0 Dehydration; E87.6 Hypokalemia; I48.91 Unspecified atrial fibrillation; R79.89 Other specified abnormal findings of blood chemistry; K59.9 Functional intestinal disorder, unspecified; N18.9 Chronic kidney disease, unspecified; J44.9 Chronic obstructive pulmonary disease, unspecified; I12.9 Hypertensive chronic kidney disease with stage 1 through stage 4 chronic kidney disease, or unspecified chronic kidney disease; E11.22 Type 2 diabetes mellitus with diabetic chronic kidney disease; F32.9 Major depressive disorder, single episode, unspecified; F41.9 Anxiety disorder, unspecified; G89.4 Chronic pain syndrome; I48.0 Paroxysmal atrial fibrillation; Z79.899 Other long term (current) drug therapy; Z82.49 Family history of ischemic heart disease and other diseases of the circulatory system; Z90.49 Acquired absence of other specified parts of digestive tract; Z90.710 Acquired absence of both cervix and uterus; Z90.89 Acquired absence of other organs; Z88.5 Allergy status to narcotic agent
CPT/HCPCS: 36415; 71045; 74176; 80048; 80053; 82150; 83690; 83735; 84484; 85025; 86677; 93005; 94761; 96374; 96375; 96376; C9113; J2405; J2704

== ENCOUNTER → 2019-01-02 | Outpatient (CLI) | payer MEDICARE, MEDICAID ==
[~2019-01-02] MED LIST changes: +FURO1TAB33 PO; -FURO20TA PO; +LORA0.5T12 PO; +ONDA-144 PO; -ONDA4TAB5 PO; +SUCR1TAB PO
[2019-01-02 08:44] LABS: Basophils # (auto) 0 uL; Basophils % (auto) 0.5 % (0.0-2.0); Eosinophils # (auto) 0.1 uL; Eosinophils % (auto) 2.8 % (0.0-7.0); Hematocrit 39.9 % (36.0-46.0); Hemoglobin 13.7 g/dL (12.2-16.2); Lymphocytes % (auto) 28.5 % (10.0-50.0); Mean Corpuscular Hemoglobin 32.1 pg (28.0-32.0); Mean Corpuscular Hgb Conc. 34.3 g/dL (32.0-36.0); Mean Corpuscular Volume 93.6 fL (80.0-100.0); Monocytes # (auto) 0.3 uL; Neutrophils # (auto) 2.1 uL; Neutrophils % (auto) 60.2 % (37.0-80.0); Platelet Count (auto) 200 10^3/uL (140-450); Red Blood Cells 4.26 10^6/uL (4.0-5.20); Red Cell Distribution Width 14.2 % (11.8-14.3); White Blood Cell 3.4 10^3/uL (4.4-10.8)
[2019-01-02 08:52] LABS: Urine Bacteria NONE SEEN /hpf (None Seen); Urine Blood Negative /uL (Negative); Urine Specific Gravity 1.012 (1.001-1.035); Urine WBC 5 /hpf (0 - 5)
[2019-01-02 09:07] LABS: Albumin 4.1 g/dL (3.4-5.0); Calcium 9.3 mg/dL (8.5-10.1); Potassium 3.9 mmol/L (3.5-5.1)
[2019-01-02 09:14] LABS: BUN/Creatinine Ratio 26.8; Bilirubin, Total 0.8 mg/dL (0.2-1.0); Total Protein 7.3 g/dL (6.4-8.2)
[2019-01-02 09:20] LABS: Folate (Folic Acid) 14.26 ng/mL (5.38-24)
== END | disposition home or self-care (01) ==
LOC: LAB 08:05
PROVIDERS: ATTEND Nurse Practitioner
DX: E78.5 Hyperlipidemia, unspecified (principal); E11.00 Type 2 diabetes mellitus with hyperosmolarity without nonketotic hyperglycemic-hyperosmolar coma (NKHHC); E55.9 Vitamin D deficiency, unspecified
CPT/HCPCS: 36415; 80053; 80061; 81001; 82306; 82607; 82746; 84443; 85025

== ENCOUNTER → 2019-10-02 | Outpatient (CLI) | payer MEDICARE ==
[~2019-10-02] MED LIST changes: -DIC10C PO; +DICY10CA PO; -LORA0.5T12 PO; +LORA0.5T20 PO
[2019-10-02 08:19] LABS: Basophils # (auto) 0 10 ^3/uL (0-0.2); Basophils % (auto) 1.1 % (0.0-2.0); Eosinophils # (auto) 0.1 10 ^3/uL (0-0.8); Eosinophils % (auto) 2.8 % (0.0-7.0); Hematocrit 40.4 % (36.0-46.0); Hemoglobin 13.3 g/dL (12.2-16.2); Lymphocytes # (auto) 0.9 10 ^3/uL (0.4-5.4); Lymphocytes % (auto) 25.2 % (10.0-50.0); Mean Corpuscular Hemoglobin 30.7 pg (28.0-32.0); Mean Corpuscular Hgb Conc. 33.1 g/dL (32.0-36.0); Mean Corpuscular Volume 92.9 fL (80.0-100.0); Monocytes # (auto) 0.3 10 ^3/uL (0-1.3); Monocytes % (auto) 7.7 % (0.0-12.0); Neutrophils # (auto) 2.4 10 ^3/uL (1.6-8.6); Neutrophils % (auto) 63.2 % (37.0-80.0); Platelet Count (auto) 201 10^3/uL (140-450); Red Blood Cells 4.35 10^6/uL (4.0-5.20); Red Cell Distribution Width 13.5 % (11.8-14.3); White Blood Cell 3.7 10^3/uL (4.4-10.8)
[2019-10-02 08:25] LABS: Urine Bacteria NONE SEEN /hpf (None Seen); Urine Blood Negative /uL (Negative); Urine Specific Gravity 1.018 (1.001-1.035); Urine WBC 1 /hpf (0 - 5)
[2019-10-02 08:38] LABS: Albumin 3.9 g/dL (3.4-5.0); Calcium 9.6 mg/dL (8.5-10.1); Potassium 4.1 mmol/L (3.5-5.1)
[2019-10-02 08:44] LABS: Bilirubin, Total 0.7 mg/dL (0.2-1.0); Total Protein 7.3 g/dL (6.4-8.2)
== END | disposition home or self-care (01) ==
LOC: LAB 07:40
PROVIDERS: ATTEND Nurse Practitioner
DX: E78.5 Hyperlipidemia, unspecified (principal); I10 Essential (primary) hypertension
CPT/HCPCS: 36415; 80053; 80061; 81001; 85025

== ENCOUNTER → 2020-08-14 | Outpatient (CLI) | payer MEDICARE ==
[~2020-08-14] MED LIST changes: -METO-169 PO; +METO-289 PO
[2020-08-14 07:48] LABS: Basophils # (auto) 0 10 ^3/uL (0-0.2); Basophils % (auto) 0.8 % (0.0-2.0); Eosinophils # (auto) 0.1 10 ^3/uL (0-0.8); Eosinophils % (auto) 2.6 % (0.0-7.0); Hematocrit 38.4 % (36.0-46.0); Lymphocytes # (auto) 1.3 10 ^3/uL (0.4-5.4); Lymphocytes % (auto) 32.8 % (10.0-50.0); Mean Corpuscular Hemoglobin 31.4 pg (28.0-32.0); Mean Corpuscular Hgb Conc. 33.8 g/dL (32.0-36.0); Mean Corpuscular Volume 92.7 fL (80.0-100.0); Monocytes # (auto) 0.3 10 ^3/uL (0-1.3); Neutrophils # (auto) 2.3 10 ^3/uL (1.6-8.6); Neutrophils % (auto) 55.8 % (37.0-80.0); Platelet Count (auto) 223 10^3/uL (140-450); Red Blood Cells 4.15 10^6/uL (4.0-5.20); Red Cell Distribution Width 14.1 % (11.8-14.3); White Blood Cell 4.1 10^3/uL (4.4-10.8)
[2020-08-14 07:58] LABS: Urine Bacteria NONE SEEN /hpf (None Seen); Urine Blood Negative /uL (Negative); Urine Specific Gravity 1.012 (1.001-1.035); Urine WBC 1 /hpf (0 - 5)
[2020-08-14 08:27] LABS: Albumin 3.8 g/dL (3.4-5.0); Calcium 9.7 mg/dL (8.5-10.1); Potassium 3.7 mmol/L (3.5-5.1)
[2020-08-14 08:34] LABS: BUN/Creatinine Ratio 21.7; Bilirubin, Total 0.6 mg/dL (0.2-1.0); Total Protein 7.1 g/dL (6.4-8.2)
== END | disposition home or self-care (01) ==
LOC: LAB 07:25
PROVIDERS: ATTEND Nurse Practitioner
DX: E78.5 Hyperlipidemia, unspecified (principal); I10 Essential (primary) hypertension
CPT/HCPCS: 36415; 80053; 80061; 81001; 85025

== ENCOUNTER → 2021-07-30 | Outpatient (CLI) | payer MEDICARE ==
[2021-07-30 08:11] LABS: Basophils # (auto) 0 10 ^3/uL (0-0.2); Basophils % (auto) 0.8 % (0.0-2.0); Eosinophils # (auto) 0.1 10 ^3/uL (0-0.8); Eosinophils % (auto) 2.4 % (0.0-7.0); Hematocrit 39.9 % (36.0-46.0); Hemoglobin 13.7 g/dL (12.2-16.2); Lymphocytes # (auto) 1.4 10 ^3/uL (0.4-5.4); Lymphocytes % (auto) 36.7 % (10.0-50.0); Mean Corpuscular Hemoglobin 31.8 pg (28.0-32.0); Mean Corpuscular Hgb Conc. 34.3 g/dL (32.0-36.0); Mean Corpuscular Volume 92.8 fL (80.0-100.0); Monocytes # (auto) 0.3 10 ^3/uL (0-1.3); Monocytes % (auto) 8.6 % (0.0-12.0); Neutrophils % (auto) 51.5 % (37.0-80.0); Nucleated Red Blood Cells % 0.1 %; Red Cell Distribution Width 13.9 % (11.8-14.3); White Blood Cell 3.8 10^3/uL (4.4-10.8)
[2021-07-30 08:28] LABS: Urine Bacteria NONE SEEN /hpf (None Seen); Urine Blood Negative /uL (Negative); Urine Specific Gravity 1.017 (1.001-1.035); Urine WBC 5 /hpf (0 - 5)
[2021-07-30 08:49] LABS: Albumin 3.9 g/dL (3.4-5.0); BUN/Creatinine Ratio 24.1; Bilirubin, Total 0.5 mg/dL (0.2-1.0); Total Protein 7.3 g/dL (6.4-8.2)
== END | disposition home or self-care (01) ==
LOC: LAB 07:35
PROVIDERS: ATTEND Nurse Practitioner
DX: E78.5 Hyperlipidemia, unspecified (principal); I10 Essential (primary) hypertension
CPT/HCPCS: 36415; 80053; 80061; 81001; 85025

== ENCOUNTER → 2022-06-24 | Outpatient (CLI) | payer MEDICARE ==
[2022-06-24 07:48] LABS: Basophils # (auto) 0 10 ^3/uL (0-0.2); Basophils % (auto) 0.7 % (0.0-2.0); Eosinophils # (auto) 0.1 10 ^3/uL (0-0.8); Eosinophils % (auto) 2.6 % (0.0-7.0); Hematocrit 39.2 % (36.0-46.0); Hemoglobin 13.3 g/dL (12.2-16.2); Lymphocytes # (auto) 1.4 10 ^3/uL (0.4-5.4); Lymphocytes % (auto) 31.7 % (10.0-50.0); Mean Corpuscular Hgb Conc. 34.1 g/dL (32.0-36.0); Mean Corpuscular Volume 93.8 fL (80.0-100.0); Monocytes # (auto) 0.4 10 ^3/uL (0-1.3); Monocytes % (auto) 9.2 % (0.0-12.0); Neutrophils # (auto) 2.4 10 ^3/uL (1.6-8.6); Neutrophils % (auto) 55.8 % (37.0-80.0); Nucleated Red Blood Cells % 0.2 %; Red Blood Cells 4.17 10^6/uL (4.0-5.20); Red Cell Distribution Width 13.8 % (11.8-14.3); White Blood Cell 4.4 10^3/uL (4.4-10.8)
[2022-06-24 08:07] LABS: Urine Bacteria FEW /hpf (None Seen); Urine Blood Negative /uL (Negative); Urine WBC <1 /hpf (0 - 5)
[2022-06-24 08:35] LABS: Albumin 3.7 g/dL (3.4-5.0); Calcium 9.6 mg/dL (8.5-10.1); Potassium 4.3 mmol/L (3.5-5.1)
[2022-06-24 08:43] LABS: Bilirubin, Total 0.6 mg/dL (0.2-1.0)
== END | disposition home or self-care (01) ==
LOC: LAB 07:33
PROVIDERS: ATTEND Nurse Practitioner
DX: I10 Essential (primary) hypertension (principal); E78.5 Hyperlipidemia, unspecified
CPT/HCPCS: 36415; 80053; 80061; 81001; 85025

== ENCOUNTER → 2023-05-12 | Outpatient (CLI) | payer MEDICARE ==
[~2023-05-12] MED LIST changes: +GABA-1250 PO; -GABA300C10 PO; -HYDR12.56 PO; +HYDR12.59 PO; +LORA-1121 PO; -LORA0.5T20 PO; +PROM25TA10 PO; -PROM25TA5 PO
[2023-05-12 07:36] LABS: Basophils # (auto) 0.1 10 ^3/uL (0-0.2); Basophils % (auto) 1.1 % (0.0-2.0); Eosinophils # (auto) 0.1 10 ^3/uL (0-0.8); Eosinophils % (auto) 2.4 % (0.0-7.0); Hematocrit 43.2 % (36.0-46.0); Hemoglobin 14.4 g/dL (12.2-16.2); Lymphocytes % (auto) 39.4 % (10.0-50.0); Mean Corpuscular Hemoglobin 31.7 pg (28.0-32.0); Mean Corpuscular Hgb Conc. 33.3 g/dL (32.0-36.0); Monocytes # (auto) 0.5 10 ^3/uL (0-1.3); Monocytes % (auto) 10.5 % (0.0-12.0); Neutrophils # (auto) 2.4 10 ^3/uL (1.6-8.6); Neutrophils % (auto) 46.6 % (37.0-80.0); Red Blood Cells 4.55 10^6/uL (4.0-5.20); Red Cell Distribution Width 13.9 % (11.8-14.3); White Blood Cell 5.1 10^3/uL (4.4-10.8)
[2023-05-12 07:40] LABS: Urine Bacteria NONE SEEN /hpf (None Seen); Urine Blood Negative /uL (Negative); Urine Clarity Clear (Clear); Urine Color Yellow (Yellow); Urine Protein, UAD Negative (Negative); Urine Specific Gravity 1.018 (1.001-1.035); Urine Urobilinogen Normal (Negative); Urine WBC 2 /hpf (0 - 5)
[2023-05-12 08:01] LABS: Alanine Aminotransferase 40 U/L (7-40); Albumin 4.6 g/dL (3.2-4.8); Alkaline Phosphatase 98 U/L (46-116); Anion Gap 6 (5-15); Aspartate Aminotransferase 38 U/L (13-40); BUN/Creatinine Ratio 14.8 (10.0-20.0); Bilirubin, Total 0.7 mg/dL (0.2-1.0); Blood Urea Nitrogen 17 mg/dL (9-23); Calcium 10.4 mg/dL (8.5-10.1); Carbon Dioxide 30 mmol/L (20-30); Chloride 101 mmol/L (98-107); Cholesterol 213 mg/dL (< 200); Glucose 107 mg/dL (74-106); LDL Cholesterol 120 mg/dL (< 100); Sodium 137 mmol/L (136-145); Total Protein 6.8 g/dL (5.7-8.2); Triglycerides 138 mg/dL (< 150)
[2023-05-12 08:13] LABS: HDL Cholesterol 78 mg/dL (40-59)
== END | disposition home or self-care (01) ==
LOC: LAB 07:10
PROVIDERS: ATTEND Nurse Practitioner
DX: I10 Essential (primary) hypertension (principal); E78.5 Hyperlipidemia, unspecified; E03.9 Hypothyroidism, unspecified; R73.9 Hyperglycemia, unspecified
CPT/HCPCS: 36415; 80053; 80061; 81001; 83036; 84443; 85025

== ENCOUNTER 2024-03-09 03:08 | Inpatient (IN) | payer MEDICARE, MEDICAID ==
[~2024-03-09] VITALS: Ht 182.9 cm; Wt 69.3 kg
[2024-03-09] VITALS (10 sets, daily range): BP systolic 95–182; BP diastolic 52–88; PULSE 66–104; RESP 14–22; TEMP 97.2–97.8; O2SAT 94–100
--- NOTE | 2024-03-09 03:24 | ED.PDOC ---
GI ASSESSMENT HPI Comments 78-year-old female who came to ER via EMS for abdominal pain. Patient does have history of hypertension and status post cholecystectomy. States for the past few days she has been having flu-like symptoms including cough, congestion, chest tightness and generalized weakness. For the past 2 days she has been e xperiencing periumbilical abdominal pain, intermittent, nonradiating, 7/10 intensity, associated with nausea and episodes of loose nonbloody diarrhea. Patient was given Tylenol and Zofran while EN route to the ER. Chief Complaint: Abdominal Pain Time Seen by MD: 03:21 Primary Care Provider: GERMAINE Reviewed Notes: Can Sterilizer Notes Allergies: Coded Allergies: Codeine (Verified Allergy, Unknown, 10/30/17) Home Meds Reported Medications Sucralfate (Sucralfate) 1 Gm Tab, 1 GM PO QIDACHS, GM 12/26/17 Lorazepam (ATIVAN TABLET) 0.5 Mg Tb, 0.5 MG PO BIDPRN PRN for ANXIETY 12/26/17 Ondansetron (Zofran) 4 Mg Tab, 4 MG PO Q6HR, MG 11/11/17 Metoprolol Succinate (Metoprolol Succinate Er) 50 Mg Tab, 1 TAB PO DAILY, #30 TAB 5 Refills 11/11/17 Diclofenac Sodium (Topical) (Voltaren) 1 % Gel, 1 GRAMS TOP QID, #100 GRAMS 2 Refills 11/11/17 Methocarbamol (Robaxin) 500 Mg Tab, 500 MG PO HS, TAB 11/11/17 Pantoprazole Sodium Sesquihydr (Protonix) 40 Mg Tab, 40 MG PO DAILY, #30 TAB 11/11/17 Clonidine Hydrochloride (Clonidine Hcl) 0.1 Mg Tab, 0.1 MG PO Q6HPRN PRN for SBP>160 for 30 Days, MG 11/11/17 Hydrochlorothiazide (Hydrochlorothiazide) 12.5 Mg Cap, 12.5 MG PO DAILY for 30 Days, MG 11/11/17 Promethazine Hcl (Promethazine Hcl) 25 Mg Tab, 25 MG PO Q8HPRN 11/11/17 Dicyclomine Hcl (BENTYL CAPSULE) 10 Mg Cp, 1 CAP PO TID, #90 CAP 11 Refills 11/11/17 Tramadol Hcl (Tramadol Hcl) 50 Mg Tab, 50 MG PO Q6HP PRN for PAIN SCALE 7 THRU 1 0, MG 10/31/17 Furosemide (Lasix) 20 Mg Tb, 1 TAB PO DAILY, #90 TAB 1 Refill 10/31/17 Gabapentin (Gabapentin) 300 Mg Cap, 300 MG PO BID for 30 Days, MG 10/31/17 Information Source: Patient, Emergency Med Personnel Mode of Arrival: EMS Timing: Days Duration: Intermittent Prehospital treatment: Treatment Quality: Aching Vomitus: None Stool: Loose, Watery Severity: Moderate Recent: Possible spoiled food Recent Hx of: Abdominal Surgery Pain Location: Periumbilical Modifying Factors: Nothing Associated sign and symptoms: Nausea, Diarrhea, Abdominal Pain Review of Systems: REVIEW OF SYSTEMS: No fever, no chills, or fatigue HEENT: No sore throat, no earache, no congestion, no neck pain. Cardiac: No chest pain. No palpitations. Lungs: No shortness of breath, no cough. GI: (+) abdominal pain, (+) nausea, (+) diarrhea : No dysuria, frequency, or urgency. No hematuria. Musculoskeletal: No joint pain , no joint swelling, no extremity edema. Skin: No rash, no itching. Neuro: No headache, no dizziness, no weakness Vital Signs Vital Signs Date Time Temp Pulse Resp B/P (MAP) Pulse Ox O2 Delivery O2 Flow Rate FiO2 03/09/24 04:21 74 16 133/75 03/09/24 04:05 96 Room Air* 0 03/09/24 03:50 97.9 97.9 Physical Exam General: Awake, alert and oriented. No acute distress. Skin: Skin in warm, dry and intact. Appropriate color for ethnicity. Nailbeds pink with no cyanosis. HEENT: The head is normocephalic and atraumatic. Conjunctivae are clear without exudates or hemorrhage. Sclera is non-icteric. EOM are intact. No signs of nystagmus. Eyelids are normal in appearance without swelling or lesions. Oral mucosa is pink and moist Neck: The neck is supple with normal range of motion. No JVD. Cardiac: Heart rate and rhythm are normal. No murmurs, gallops, or rubs are auscultated. Respiratory: No signs of respiratory distress. Lung sounds are clear in all lobes bilaterally without rales, ronchi, or wheezes. Abdominal: Abdomen is soft, with periumbilical tenderness, no guarding or rigidity. Bowel sounds are present and normoactive in all four quadrants. Extremities: Upper and lower extremities are atraumatic in appearance without deformity or edema. Neurological: The patient is awake, alert and oriented to person, place, and time with normal speech. Speech is clear. There is no facial asymmetry. Psychiatric: Appropriate mood and affect. Good judgement and insight. No visual or auditory hallucinations. Past Medical History PAST MEDICAL HISTORY: AFIB, Anxiety, HTN Surgical History: Cholecystectomy, Hysterectomy, Tonsillectomy Surgical History (Other): Exploratory laparotomy secondary to small-bowel obstruction WEIGHBRIDGE OPERATOR History: No Pertinent WEIGHBRIDGE OPERATOR History Family History Family History: Reviewed,noncontributory to illness Social History Smoker: Non-Smoker Alcohol: Occasionally Drugs: Denies Drug Use Lives In: Home EKG EKG : Pulse Rate (adult): 72 Cardiac Rhythm: Afib Comments No STEMI. Was a procedure done? Was a procedure done?: No GI differential Dx Differential Diagnosis: Diverticular disease, Gastritis/PUD, Gastroenteritis, Pancreatitis, Urinary Obstruction, UTI, Electrolyte Imbalance, Food Poisoning X-Ray, Labs, Meds, VS Vital Signs Date Time Temp Pulse Resp B/P (MAP) Pulse Ox O2 Delivery O2 Flow Rate FiO2 03/09/24 04:21 74 16 133/75 03/09/24 04:05 75 18 96 Room Air* 0 21 03/09/24 03:50 97.9 75 18 144/79 (100) 96 97.9 03/09/24 03:24 72 03/09/24 03:18 72 03/09/24 03:10 97.9 68 20 141/88 (105) 96 Lab Test 03/09/24 03:55 03/09/24 03:25 Range/Units Influenza Type A Antigen Pending Influenza Type B Antigen Pending SARS-CoV-2 Antigen (Rapid) Pending White Blood Count 2.5 L 4.4-10.8 10^3/uL Red Blood Count 4.78 4.0-5.20 10^6/uL Hemoglobin 15.4 12.2-16.2 g/dL Hematocrit 44.3 36.0-46.0 % Mean Corpuscular Volume 92.6 80.0-100.0 fL Mean Corpuscular Hemoglobin 32.1 H 28.0-32.0 pg Mean Corpuscular Hemoglobin Concent 34.7 32.0-36.0 g/dL Red Cell Distribution Width 13.3 11.8-14.3 % Platelet Count 175 140-450 10^3/uL Mean Platelet Volume 7.4 6.9-10.8 fL Neutrophils (%) (Auto) 56.8 37.0-80.0 % Lymphocytes (%) (Auto) 24.6 10.0-50.0 % Monocytes (%) (Auto) 17.8 H 0.0-12.0 % Eosinophils (%) (Auto) 0.1 0.0-7.0 % Basophils (%) (Auto) 0.7 0.0-2.0 % Neutrophils # (Auto) 1.4 L 1.6-8.6 10 ^3/uL Lymphocytes # (Auto) 0.6 0.4-5.4 10 ^3/uL Monocytes # (Auto) 0.4 0-1.3 10 ^3/uL Eosinophils # (Auto) 0 0-0.8 10 ^3/uL Basophils # (Auto) 0 0-0.2 10 ^3/uL Nucleated Red Blood Cells 0.1 % Sodium Level 121 L 136-145 mmol/L Potassium Level 3.3 L 3.5-5.1 mmol/L Chloride Level 85 L 98-107 mmol/L Carbon Dioxide Level 26 20-31 mmol/L Anion Gap 10 5-15 Blood Urea Nitrogen 10 9-23 mg/dL Creatinine 0.77 0.550-1.02 mg/dL Glomerular Filtration Rate Calc 78 >90 mL/min BUN/Creatinine Ratio 13.0 10.0-20.0 Serum Glucose 115 H 74-106 mg/dL Lactic Acid Level 1.4 0.4-2.0 mmol/L Calcium Level 9.3 8.7-10.4 mg/dL Total Bilirubin 0.6 0.2-1.0 mg/dL Aspartate Amino Transferase (AST) 48 H 13-40 U/L Alanine Aminotransferase (ALT) 41 H 7-40 U/L Alkaline Phosphatase 111 46-116 U/L Troponin I High Sensitivity 51 *H </=34 ng/L B-Type Natriuretic Peptide 145.58 0-100 pg/mL Total Protein 6.5 5.7-8.2 g/dL Albumin 4.1 3.2-4.8 g/dL Lipase 42 12-53 U/L Thyroid Stimulating Hormone (TSH) Pending Current Medications Medications (Trade) Dose Ordered Sig/Neli Route Start Time Stop Time Status Last Admin Morphine Sulfate 2 mg ONCE ONCE IV 03/09/24 03:30 03/09/24 03:31 DC 03/09/24 04:21 Ondansetron HCl (Zofran) 4 mg ONCE ONCE IV 03/09/24 03:56 03/09/24 03:57 DC 03/09/24 03:58 Sodium Chloride 1,000 ml @ 100 mls/hr Q10H ONCE IV 03/09/24 04:30 03/09/24 14:29 03/09/24 04:43 Potassium Bicarbonate (Klor-Con/Ef) 50 meq ONCE ONCE GT 03/09/24 04:30 03/09/24 04:31 DC 03/09/24 04:43 Potassium Bicarbonate (Klor-Con/Ef) 25 meq ONCE ONCE GT 03/09/24 04:30 03/09/24 04:31 DC 03/09/24 04:43 Time of 1ST Reevaluation: 03:16 Reevaluation 1ST: Unchanged Patient Education/Counseling: Diagnosis, Treatment Family Education/Counseling: No Family Present Departure 1 Departure Time of Disposition: 04:34 Impression: Primary Impression: Generalized weakness Additional Impressions: Hyponatremia Hypokalemia Abdominal pain Elevated troponin Disposition: ADMITTED INPATIENT Condition: Serious Comments 78-year-old female who presents to the emergency department with abdominal pain, generalized weakness. Found to be hyponatremic with a sodium of 121. Normal saline initiated at a rate of 100 cc/hour. Potassium replaced orally. CT abdomen and pelvis negative for acute process. Troponin mildly elevated at 54, EKG shows atrial fibrillation at a rate of [address] changes. Patient admitted for further treatment, evaluation and monitoring. Extensive evaluation was performed in attempt to identify or rule out: (See differential diagnosis section) The following tests were ordered, and results were reviewed by me: (See diagnostic results section) The following test were independently interpreted by me: EKG, chest x-ray-no acute disease I reviewed and agreed with the following test results read by other providers: Chest x-ray I reviewed the following notes from the pt's past medical encounters: April 2023 Additional information was gathered from interviewing the following independent historians: EMS Discussion of management or test interpretation with external physician/other qualified health care transition mgr: N/A Addressed an acute or chronic illness that poses a threat to life or bodily function: Hyponatremia with generalized weakness Decision regarding hospitalization or escalation of hospital level of care: Risk and benefits of admission for further treatment of patient's condition was considered. Due to patient's current clinical condition, high risk of decline and poor outcome if discharged and need for further inpatient management and monitoring, patient will be admitted to the hospital. Critical Care Note Critical Care Time?: No Stability Stability form required: No Heart Score Heart Score: Heart Score Response (Comments) Value History N/A 0 EKG N/A 0 Age N/A 0 Risk Factors N/A 0 Troponin N/A 0 Total 0 I personally scribed for COURTNEY MOJICA MD ([email or web address]) on 03/09/24 at 03:24. Electronically submitted by Silviano Mixon ([email or web address]). I personally scribed for COURTNEY MOJICA MD ([email or web address]) on 03/09/24 at 03:26. Electronically submitted by Silviano Mixon ([email or web address]). COURTNEY MOJICA MD Mar 09, 2024 03:24
[2024-03-09 03:41] LABS: Basophils # (auto) 0 10 ^3/uL (0-0.2); Basophils % (auto) 0.7 % (0.0-2.0); Eosinophils # (auto) 0 10 ^3/uL (0-0.8); Eosinophils % (auto) 0.1 % (0.0-7.0); Hematocrit 44.3 % (36.0-46.0); Hemoglobin 15.4 g/dL (12.2-16.2); Lymphocytes # (auto) 0.6 10 ^3/uL (0.4-5.4); Lymphocytes % (auto) 24.6 % (10.0-50.0); Mean Corpuscular Hemoglobin 32.1 pg (28.0-32.0); Mean Corpuscular Hgb Conc. 34.7 g/dL (32.0-36.0); Mean Corpuscular Volume 92.6 fL (80.0-100.0); Monocytes # (auto) 0.4 10 ^3/uL (0-1.3); Monocytes % (auto) 17.8 % (0.0-12.0); Neutrophils # (auto) 1.4 10 ^3/uL (1.6-8.6); Neutrophils % (auto) 56.8 % (37.0-80.0); Nucleated Red Blood Cells % 0.1 %; Platelet Count (auto) 175 10^3/uL (140-450); Red Blood Cells 4.78 10^6/uL (4.0-5.20); Red Cell Distribution Width 13.3 % (11.8-14.3); White Blood Cell 2.5 10^3/uL (4.4-10.8)
--- NOTE | 2024-03-09 03:46 | ECG ---
[facility] Test Date: 2024-03-09 Test Time: 03:18:35 Pat Name: TOM TRAN Department: er Room: [address] [place] [address] Gender: F Police Manager: er : 1945 Requested By: COURTNEY MOJICA Order Number: [id number] Reading MD: Arsh Driver Measurements Intervals [place] Rate: 72 P: 0 IL: 0 QRS: 22 QRSD: 96 T: 48 QT: 427 QTc: 468 Interpretive Statements Atrial fibrillation Anterior infarct, old Electronically Signed On 03-09-2024 12:52:55 PST by Arsh Driver Please click the below link to view image of tracing.
[2024-03-09] MEDS: ONDANSETRON HCL 4 MG/2 ML VIAL IV ONE (03:58)
[2024-03-09 03:59] LABS: Albumin 4.1 g/dL (3.2-4.8); Alkaline Phosphatase 111 U/L (46-116); Anion Gap 10 (5-15); Bilirubin, Total 0.6 mg/dL (0.2-1.0); Blood Urea Nitrogen 10 mg/dL (9-23); Calcium 9.3 mg/dL (8.7-10.4); Carbon Dioxide 26 mmol/L (20-31); Lipase 42 U/L (12-53); Total Protein 6.5 g/dL (5.7-8.2)
[2024-03-09 04:00] LABS: Alanine Aminotransferase 41 U/L (7-40); Aspartate Aminotransferase 48 U/L (13-40); Chloride 85 mmol/L (98-107); Glucose 115 mg/dL (74-106); Potassium 3.3 mmol/L (3.5-5.1); Sodium 121 mmol/L (136-145)
--- NOTE | 2024-03-09 04:05 | DVH ---
CHEST RADIOGRAPH Indication: cp Technique: Single frontal view of the chest was obtained Comparison: None FINDINGS: Lines and Tubes: None Lungs: No focal consolidation. Pleura: No effusion. No pneumothorax. Cardiomediastinal contours: Unremarkable Bones: No acute osseous abnormality. IMPRESSION: No acute cardiopulmonary disease.
[2024-03-09] MEDS: MORPHINE SULFATE INJ 2 MG/ml SYRG IV ONE (04:21)
--- NOTE | 2024-03-09 04:29 | DVH ---
Exam: CT CT AB PEL WO CON-NO ORAL OR IV History: Abdominal pain Comparison Study: None available at time of dictation. TECHNIQUE: Multidetector CT of the abdomen was performed from lung bases to pubic symphysis. Imaging was performed without IV contrast. Axial, coronal and sagittal multiplanar reformats were obtained fr om the axial data set by the technologist. Radiation optimization: All CT scans at this facility use at least one of these dose optimization techniques: automated exposure control mA and/or kV adjustme nt per patient size (includes targeted exams where dose is matched to clinical indication) or iterat anjel reconstruction. Radiation Dose Information: CT Dose: Dose-length product is 567.4 mGy*cm FINDINGS: Evaluation of solid organs is limited due to lack of intravenous contrast use. Findings: Imaged portions of the lung bases demonstrate subsegmental atelectasis. The liver, spleen, pancreas and right adrenal gland appear unremarkable. There is a 2.8 cm left adren al nodule hounsfield units less than 10 suggesting adenoma. The kidneys appear symmetric without hydr onephrosis. No evidence of bowel obstruction or focal bowel wall thickening. No free fluid, free air, or adenopat hy. The appendix is not well visualized, however the right lower quadrant appears unremarkable. 3.2 c m ventral fat containing abdominal hernia. 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 IMPRESSION: 1. No acute abdominal or pelvic finding. 2. Left adrenal nodule likely represents adenoma.
[2024-03-09] MEDS: POTASSIUM EFFERVESENT TAB 25 MEQ GT ONE ×2 (04:43)
[2024-03-09] MEDS: SODIUM CHLORIDE 0.9% 1,000 ML IV ONE (04:43)
[2024-03-09 05:21] LABS: COVID19 ANTIGEN SOFIA FIA NEGATIVE (NEGATIVE)
[2024-03-09 05:22] LABS: Rapid Influenza B Negative (Negative)
[2024-03-09 05:23] LABS: Rapid Influenza A Positive (Negative)
[2024-03-09] MEDS: OSELTAMIVIR 75 MG CAP PO ONE (05:32)
[2024-03-09] MEDS ORDERED: NITROGLYCERIN 0.4 MG SL TAB SL PRN (09:15)
[2024-03-09] MEDS: SODIUM CHLORIDE 0.9% 1,000 ML IV SCH (09:49)
[2024-03-09] MEDS ORDERED: AMLO1TAB22 PO (10:16)
--- NOTE | 2024-03-09 10:22 | DVHHP2 ---
History of Present Illness Reason for Visit: abdominal pain History of Present Illness Ting Mello is an 78-year-old female with a past medical history of hypertension, AFib, anxiety, COPD, and anemia who presents to the ED for abdominal pain, nausea, diarrhea, cough, congestion, general weakness, and chest tightness x 2 days. Patient reports that she had a recent sick contact her granddaughter was sick at home. Patient reports that she had some nausea and diarrhea but no vomiting. She is here in the ER due to the flu-like symptoms. Patient reports that she is compliant with all her medications. She also states that she is hard of hearing, she hears better in the left ear versus the right. Patient states that she has no appetite right now wants to start off with liquids initially. Patient denies any fevers, chills, chest pain, shortness of breath, headaches, lightheadedness, and dizziness. Cardiovascular: AFIB, HTN Pulmonary: COPD Heme/Onc: Anemia NOS Psych: Anxiety Past Surgical History: Cholecystectomy, Hysterectomy, Tonsillectomy Past Surgical History ex-lap SBO Family History: Other (COPD - mother) Smoke: No ALCOHOL: none Drugs: None Lives: with Family Domestic Violence: Neg Review of Systems Constitutional: Yes: Weakness; No: Fever, Chills, Sweats, Malaise, Other Eyes: No: Pain, Vision change, Conjunctivae inflammation, Eyelid inflammation, Other, Redness ENT: Other ([place]); No: Ear pain, Ear discharge, Nose pain, Nose discharge, Nose congestion, Mouth pain, Mouth swelling, Throat pain, Throat swelling Respiratory: Cough; No: Dry, Shortness of breath, SOB with excertion, Wheezing, Hemoptysis, Pleuritic Pain, Sputum, Wheezing, Other Cardiovascular: No: Chest Pain, Palpitations, Orthopnea, Paroxysmal Noc. Dyspnea, Edema, Lt Headedness, Other Gastrointestinal: Nausea, Abdominal Pain, Diarrhea; No: Vomiting, Constipation, Melena, Hematochezia, Other Genitourinary: No Dysuria, No Frequency, No Incontinence, No Hematuria, No Retention, No Other Musculoskeletal: No: other, neck pain, shoulder pain, arm pain, back pain, hand pain, leg pain, foot pain Skin: No: Rash, Lesions, Jaundice, Bruising, Other Neurological: No: Weakness, Numbness, Incoordination, Change in speech, Confusion, Seizures, Other Allergies: Coded Allergies: Codeine (Verified Allergy, Unknown, 10/30/17) Medications Current Medications Medications Dose Ordered Sig/Neli Route Start Time Stop Time Status Last Admin Dose Admin Sodium Chloride 1,000 ml @ 100 mls/hr Q10H IV 03/09/24 09:15 03/09/24 09:49 100 MLS/HR Ondansetron HCl 4 mg Q4HP PRN IV 03/09/24 09:15 Enoxaparin Sodium 40 mg DAILY SC 03/09/24 10:00 UNV Acetaminophen 650 mg Q6HP PRN PO 03/09/24 09:15 Nitroglycerin 0.4 mg Q5MINP PRN SL 03/09/24 09:15 Oseltamivir Phosphate 75 mg Q12HR PO 03/09/24 10:00 03/14/24 09:59 UNV Exam Vital Signs Vital Signs Date Time Temp Pulse Resp B/P (MAP) Pulse Ox O2 Delivery O2 Flow Rate FiO2 03/09/24 05:00 68 15 142/78 (99) 93 03/09/24 04:05 Room Air* 0 21 03/09/24 03:50 97.9 97.9 General Appearance: Alert, Oriented X3, Cooperative, No acute distress HEENT: Atraumatic, PERRLA, EOMI, Mucous membr. moist/pink Respiratory: Clear to auscultation, Normal air movement Cardiovascular: Regular rate, Normal S1, Normal S2, No murmurs, Other (Afib) Abdominal: Normal bowel sounds, Soft, No tenderness, No hepatospenomegaly Extremities: No clubbing, No cyanosis, No edema, Normal pulses, No tenderness/swelling Skin: No rashes, No breakdown, No significant lesion Neuro: Normal speech, Strength at 5/5 X4 ext, Normal tone, Sensation intact Psych/Mental Status: Mental status NL, Mood NL Labs/Xrays Labs Test 03/09/24 03:55 03/09/24 03:25 Range/Units Influenza Type A Antigen Positive Negative Influenza Type B Antigen Negative Negative SARS-CoV-2 Antigen (Rapid) Negative NEGATIVE White Blood Count 2.5 L 4.4-10.8 10^3/uL Red Blood Count 4.78 4.0-5.20 10^6/uL Hemoglobin 15.4 12.2-16.2 g/dL Hematocrit 44.3 36.0-46.0 % Mean Corpuscular Volume 92.6 80.0-100.0 fL Mean Corpuscular Hemoglobin 32.1 H 28.0-32.0 pg Mean Corpuscular Hemoglobin Concent 34.7 32.0-36.0 g/dL Red Cell Distribution Width 13.3 11.8-14.3 % Platelet Count 175 140-450 10^3/uL Mean Platelet Volume 7.4 6.9-10.8 fL Neutrophils (%) (Auto) 56.8 37.0-80.0 % Lymphocytes (%) (Auto) 24.6 10.0-50.0 % Monocytes (%) (Auto) 17.8 H 0.0-12.0 % Eosinophils (%) (Auto) 0.1 0.0-7.0 % Basophils (%) (Auto) 0.7 0.0-2.0 % Neutrophils # (Auto) 1.4 L 1.6-8.6 10 ^3/uL Lymphocytes # (Auto) 0.6 0.4-5.4 10 ^3/uL Monocytes # (Auto) 0.4 0-1.3 10 ^3/uL Eosinophils # (Auto) 0 0-0.8 10 ^3/uL Basophils # (Auto) 0 0-0.2 10 ^3/uL Nucleated Red Blood Cells 0.1 % Sodium Level 121 L 136-145 mmol/L Potassium Level 3.3 L 3.5-5.1 mmol/L Chloride Level 85 L 98-107 mmol/L Carbon Dioxide Level 26 20-31 mmol/L Anion Gap 10 5-15 Blood Urea Nitrogen 10 9-23 mg/dL Creatinine 0.77 0.550-1.02 mg/dL Glomerular Filtration Rate Calc 78 >90 mL/min BUN/Creatinine Ratio 13.0 10.0-20.0 Serum Glucose 115 H 74-106 mg/dL Lactic Acid Level 1.4 0.4-2.0 mmol/L Calcium Level 9.3 8.7-10.4 mg/dL Total Bilirubin 0.6 0.2-1.0 mg/dL Aspartate Amino Transferase (AST) 48 H 13-40 U/L Alanine Aminotransferase (ALT) 41 H 7-40 U/L Alkaline Phosphatase 111 46-116 U/L Troponin I High Sensitivity 51 *H </=34 ng/L B-Type Natriuretic Peptide 145.58 0-100 pg/mL Total Protein 6.5 5.7-8.2 g/dL Albumin 4.1 3.2-4.8 g/dL Lipase 42 12-53 U/L Thyroid Stimulating Hormone (TSH) 2.22 0.55-4.78 uIU/mL CHEST RADIOGRAPH Indication: cp Technique: Single frontal view of the chest was obtained Comparison: None FINDINGS: Lines and Tubes: None Lungs: No focal consolidation. Pleura: No effusion. No pneumothorax. Cardiomediastinal contours: Unremarkable Bones: No acute osseous abnormality. IMPRESSION: No acute cardiopulmonary disease. Exam: CT CT AB PEL WO CON-NO ORAL OR IV History: Abdominal pain Comparison Study: None available at time of dictation. TECHNIQUE: Multidetector CT of the abdomen was performed from lung bases to pubic symphysis. Imaging was performed without IV contrast. Axial, coronal and sagittal multiplanar reformats were obtained from the axial data set by the technologist. Radiation optimization: All CT scans at this facility use at least one of these dose optimization techniques: automated exposure control mA and/or kV adjustment per patient size (includes targeted exams where dose is matched to clinical indication) or iterative reconstruction. Radiation Dose Information: CT Dose: Dose-length product is 567.4 mGy*cm FINDINGS: Evaluation of solid organs is limited due to lack of intravenous contrast use. Findings: Imaged portions of the lung bases demonstrate subsegmental atelectasis. The liver, spleen, pancreas and right adrenal gland appear unremarkable. There is a 2.8 cm left adrenal nodule hounsfield units less than 10 suggesting adenoma. The kidneys appear symmetric without hydronephrosis. No evidence of bowel obstruction or focal bowel wall thickening. No free fluid, free air, or adenopathy. The appendix is not well visualized, however the right lower quadrant appears unremarkable. 3.2 cm ventral fat containing abdominal hernia. 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 IMPRESSION: 1. No acute abdominal or pelvic finding. 2. Left adrenal nodule likely represents adenoma. Assessment/Plan Assessment/Plan Assessment/Plan: Influenza A elevated troponins cards cx tamiflu labs ekg noted ekg am am labs ua cxr noted trend troponin's Afib continue home med - metoprolol flight surveyor Anemia monitor labs COPD monitor pox prn resp txs HTN continue home meds - amlodipine HCTZ Anxiety ativan home med continued hypokalemia replete lytes in er am labs hypochloremia monitor hyponatremia ivf monitor am labs FEN/PPX ivf diet lovenox pud ppx - continue home med - protonix sucralfate Admit patient to tele for continuous monitoring Discussed plan of care with patient and nurse Home medications reconciled Plan discussed with: Patient My Orders Orders - CAROLYN RUDOLPH Procedure Category Date Status Time Admit ADMIT 03/09/24 Transmitted 09:15 Allergies NOLVIA 03/09/24 In Process 09:15 Code Status CODE 03/09/24 Transmitted 09:15 Sodium Chloride 0.9% PHA 03/09/24 In Process 09:15 Ondansetron Hcl PHA 03/09/24 In Process (Zofran) 09:15 Enoxaparin Sodium PHA 03/09/24 In Process (Lovenox) 10:00 Complete Blood Count LAB 03/10/24 Verified 04:00 Comprehensive LAB 03/10/24 Verified Metabolic Panel 04:00 Acetaminophen Tablet PHA 03/09/24 In Process (Tylenol Tablet) 09:15 Clear Liq Diet DIET 03/09/24 Transmitted Breakfast Nitroglycerin PHA 03/09/24 In Process Sublingual (Ntrostat 09:[address] [facility] 03/09/24 In Process From Base 09:[address] [facility] 03/09/24 In Process 24 Hours 09:[address] [facility] 03/09/24 In Process Protocol 09:[address] [facility] 03/09/24 In Process Every Shift 09:15 Oxygen By Nasal RT 03/09/24 Transmitted Cannula 09:15 Oseltamivir 75mg [facility] 03/09/24 In Process Capsule (Tamiflu 75mg 10:[address] [facility] 03/09/24 In Process 09:15 Date of Service: Mar 09, 2024 Billing Provider: CAROLYN RUDOLPH Common Visit Codes: [id number] INP/OBS CARE (MOD) CAROLYN RUDOLPH Mar 09, 2024 10:22
[2024-03-09] MEDS ORDERED: IPRATROPIUM BROM 0.5 MG/2.5ML INH SOL NEB PRN (10:30)
[2024-03-09] MEDS ORDERED: ALBUTEROL SULF 2.5 MG/0.5ML(0.5%) NEB SOLN NEB PRN (10:30)
[2024-03-09] MEDS: ONDANSETRON HCL 4 MG/2 ML VIAL IV PRN (11:10)
[2024-03-09] MEDS: PANTOPRAZOLE 40 MG TAB PO SCH (11:10)
[2024-03-09] MEDS: LORazepam 0.5 MG TAB PO PRN (12:37)
[2024-03-09] MEDS: METOPROLOL SUCCINATE XL 50 MG TAB PO SCH (12:38)
[2024-03-09] MEDS: ENOXAPARIN SOD 40 MG/0.4 ML SYRINGE SC SCH (12:42)
[2024-03-09] MEDS: SUCRALFATE 1 GM TAB PO SCH (12:42)
[2024-03-09] MEDS: OSELTAMIVIR 75 MG CAP PO SCH (12:42)
[2024-03-09] MEDS: ACETAMINOPHEN 325 MG TAB PO PRN (17:01)
[2024-03-09] MEDS: hydrALAZINE HCL 20 MG/ML VL IV PRN (21:30)
[2024-03-10] VITALS (9 sets, daily range): BP systolic 103–151; BP diastolic 63–91; PULSE 65–108; RESP 16–20; TEMP 97.5–98.6; O2SAT 93–95
[2024-03-10 07:16] LABS: Basophils # (auto) 0 10 ^3/uL (0-0.2); Basophils % (auto) 0.3 % (0.0-2.0); Eosinophils # (auto) 0 10 ^3/uL (0-0.8); Eosinophils % (auto) 0.1 % (0.0-7.0); Hematocrit 41.9 % (36.0-46.0); Hemoglobin 14.7 g/dL (12.2-16.2); Lymphocytes # (auto) 0.6 10 ^3/uL (0.4-5.4); Lymphocytes % (auto) 19.9 % (10.0-50.0); Mean Corpuscular Hemoglobin 32.1 pg (28.0-32.0); Mean Corpuscular Hgb Conc. 35.1 g/dL (32.0-36.0); Mean Corpuscular Volume 91.5 fL (80.0-100.0); Monocytes # (auto) 0.4 10 ^3/uL (0-1.3); Monocytes % (auto) 14.3 % (0.0-12.0); Neutrophils # (auto) 1.9 10 ^3/uL (1.6-8.6); Neutrophils % (auto) 65.4 % (37.0-80.0); Nucleated Red Blood Cells % 0.2 %; Platelet Count (auto) 167 10^3/uL (140-450); Red Blood Cells 4.57 10^6/uL (4.0-5.20); Red Cell Distribution Width 13.3 % (11.8-14.3)
[2024-03-10 07:38] LABS: Albumin 4.1 g/dL (3.2-4.8); Alkaline Phosphatase 107 U/L (46-116); Anion Gap 8 (5-15); Calcium 9.5 mg/dL (8.7-10.4); Carbon Dioxide 28 mmol/L (20-31); Potassium 3.6 mmol/L (3.5-5.1)
[2024-03-10 07:39] LABS: Bilirubin, Total 0.8 mg/dL (0.2-1.0); Total Protein 6.4 g/dL (5.7-8.2)
[2024-03-10 07:43] LABS: Alanine Aminotransferase 46 U/L (7-40); Aspartate Aminotransferase 65 U/L (13-40); Blood Urea Nitrogen 9 mg/dL (9-23); Chloride 90 mmol/L (98-107); Glucose 108 mg/dL (74-106); Sodium 126 mmol/L (136-145)
[2024-03-10 08:07] LABS: Urine Bacteria None Seen /hpf (None Seen); Urine WBC None Seen /hpf (0 - 5)
[2024-03-10 08:27] LABS: Urine Blood Negative /uL (Negative); Urine Clarity Clear (Clear); Urine Color Colorless (Yellow); Urine Protein, UAD TRACE (Negative); Urine Specific Gravity 1.003 (1.001-1.035); Urine Urobilinogen Normal (Negative)
[2024-03-10] MEDS: hydroCHLOROthiazide 25 MG TAB PO SCH (09:06)
--- NOTE | 2024-03-10 14:22 | DVHPN2 ---
Subjective 78-year-old female came with a chief complaint of abdominal pain and weakness and congestion and some cough, she tested positive for influenza A She has a history of hypertension and anxiety and COPD and anemia and atrial fibrillation He denies having nausea and vomiting and diarrhea She is hungry now and requesting to eat Changes from previous H/P or p: Changes Eyes: No Pain, No Vision change, No Conjunctivae inflammation, No Eyelid inflammation, No Other, No Redness ENT: No Ear pain, No Ear discharge, No Nose pain, No Nose discharge, No Nose congestion, No Mouth pain, No Mouth swelling, No Throat pain, No Throat swelling; Other ([place]) Cardiovascular: No Chest Pain, No Palpitations, No Orthopnea, No Paroxysmal Noc. Dyspnea, No Edema, No Lt Headedness, No Other Respiratory: Cough; No Dry, No Shortness of breath, No SOB with excertion, No Wheezing, No Hemoptysis, No Pleuritic Pain, No Sputum, No Other Gastrointestinal: Nausea; No Vomiting; Abdominal Pain, Diarrhea; No Constipation, No Melena, No Hematochezia, No Other Genitourinary: No Dysuria, No Frequency, No Incontinence, No Hematuria, No Retention, No Other Musculoskeletal: No other, No neck pain, No shoulder pain, No arm pain, No back pain, No hand pain, No leg pain, No foot pain Skin: No Rash, No Lesions, No Jaundice, No Bruising, No Other Objective Vitals Vital Signs Date Time Temp Pulse Resp B/P (MAP) Pulse Ox O2 Delivery O2 Flow Rate FiO2 03/10/24 12:59 98.6 69 16 141/80 (100) 94 98.6 03/10/24 07:30 Room Air* 0 21 Intake/Output Intake and Output 03/10/24 07:00 Intake Total 400 ml Balance 400 ml Intake Oral 400 ml # Voids 3 General Appearance: Alert, Oriented X3, Cooperative, No acute distress Lungs: Clear to auscultation, Normal air movement Cardiovascular: Regular rate, Normal S1, Normal S2, No murmurs Abdomen: Normal bowel sounds, Soft, No tenderness Extremities: No edema Medications Current Medications Medications Dose Ordered Sig/Neli Route Start Time Stop Time Status Last Admin Dose Admin Sodium Chloride 1,000 ml @ 100 mls/hr Q10H IV 03/09/24 09:15 03/09/24 21:30 100 MLS/HR Ondansetron HCl 4 mg Q4HP PRN IV 03/09/24 09:15 03/10/24 00:57 4 MG Enoxaparin Sodium 40 mg DAILY SC 03/09/24 10:00 Acetaminophen 650 mg Q6HP PRN PO 03/09/24 09:15 03/10/24 13:14 650 MG Nitroglycerin 0.4 mg Q5MINP PRN SL 03/09/24 09:15 Oseltamivir Phosphate 75 mg Q12HR PO 03/09/24 10:00 03/14/24 09:59 03/09/24 21:15 75 MG Lorazepam 0.5 mg BIDPRN PRN PO 03/09/24 09:45 03/09/24 12:37 0.5 MG Metoprolol Succinate 50 mg DAILY PO 03/09/24 10:00 03/10/24 09:06 50 MG Pantoprazole Sodium 40 mg DAILY PO 03/09/24 10:00 03/09/24 11:10 40 MG Sucralfate 1 gm QIDACHS PO 03/09/24 11:30 03/10/24 06:55 1 GM Hydrochlorothiazide 25 mg DAILY PO 03/10/24 10:00 03/10/24 09:06 25 MG Albuterol 2.5 mg Q4HPRN PRN NEB 03/09/24 10:30 Ipratropium [place] 0.5 mg Q4HPRN PRN NEB 03/09/24 10:30 Hydralazine HCl 10 mg Q6HP PRN IV 03/09/24 10:45 03/09/24 21:30 10 MG Laboratory Results Laboratory Tests 03/10/24 05:58 Chemistry Test 03/10/24 05:58 Albumin 4.1 g/dL (3.2-4.8) Calcium Level 9.5 mg/dL (8.7-10.4) Total Protein 6.4 g/dL (5.7-8.2) LFT Test 03/10/24 05:58 Alanine Aminotransferase (ALT) 46 U/L (7-40) H Alkaline Phosphatase 107 U/L (46-116) Aspartate Amino Transferase (AST) 65 U/L (13-40) H Total Bilirubin 0.8 mg/dL (0.2-1.0) Urinalysis Test 03/10/24 07:00 Urine Color Colorless (Yellow) Urine Clarity Clear (Clear) Urine pH 7.0 (5.0-9.0) Urine Specific [place] 1.003 (1.001-1.035) Urine Protein Trace (Negative) H Urine Ketones Negative (Negative) Urine Blood Negative /uL (Negative) Urine Nitrite Negative (Negative) Urine Bilirubin Negative (Negative) Urine Urobilinogen Normal mg/dL (Negative) Urine Leukocyte Esterase Negative /uL (Negative) Urine RBC <1 /hpf (0 - 4) Urine WBC None seen /hpf (0 - 5) Urine Squamous Epithelial Cells None seen /hpf (<5) Urine Bacteria None seen /hpf (None Seen) Urine Glucose Normal mg/dL (Normal) Assessment/Plan Assessment/Plan Acute influenza A Nausea and vomiting and diarrhea, resolved COPD Anemia Hypertension Anxiety Hypokalemia Hyponatremia Leukopenia Plan Resume the diet Continue IV fluids normal saline Tamiflu 75 mg twice a day Continue Protonix and Carafate Lorazepam p.r.n. for anxiety Metoprolol XL 50 mg daily Amlodipine 5 mg daily Hydrochlorothiazide 25 mg daily Neurontin 300 mg twice a day Full code Advance directives discussed for 20 minutes Plan discussed with: Patient My Orders Orders - WILLIAM MOFFETT MD Procedure Category Date Status Time Cardiac DIET 03/10/24 Transmitted Diet-2gna,Lofat,Lochol Lunch Date of Service: Mar 10, 2024 Billing Provider: WILLIAM MOFFETT MD Common Visit Codes: [id number] INP/OBS CARE(HIGH) Secondary Visit Codes: [id number] CARE PLAN 30 MINUTES WILLIAM MOFFETT MD Mar 10, 2024 14:22
[2024-03-10] MEDS: GABAPENTIN 100 MG CAP PO SCH (22:00)
[2024-03-11] VITALS (8 sets, daily range): BP systolic 118–153; BP diastolic 68–90; PULSE 61–84; RESP 16–19; TEMP 97.3–99.2; O2SAT 93–98
[2024-03-11 06:46] LABS: Basophils # (auto) 0 10 ^3/uL (0-0.2); Basophils % (auto) 0.3 % (0.0-2.0); Eosinophils # (auto) 0 10 ^3/uL (0-0.8); Eosinophils % (auto) 0.4 % (0.0-7.0); Hematocrit 42.9 % (36.0-46.0); Hemoglobin 14.8 g/dL (12.2-16.2); Lymphocytes # (auto) 1.1 10 ^3/uL (0.4-5.4); Lymphocytes % (auto) 34.3 % (10.0-50.0); Mean Corpuscular Hemoglobin 32.1 pg (28.0-32.0); Mean Corpuscular Hgb Conc. 34.5 g/dL (32.0-36.0); Monocytes # (auto) 0.5 10 ^3/uL (0-1.3); Monocytes % (auto) 15.1 % (0.0-12.0); Neutrophils # (auto) 1.7 10 ^3/uL (1.6-8.6); Neutrophils % (auto) 49.9 % (37.0-80.0); Nucleated Red Blood Cells % 0.3 %; Platelet Count (auto) 170 10^3/uL (140-450); Red Blood Cells 4.62 10^6/uL (4.0-5.20); Red Cell Distribution Width 13.4 % (11.8-14.3); White Blood Cell 3.3 10^3/uL (4.4-10.8)
[2024-03-11 06:47] LABS: Anion Gap 7 (5-15); Carbon Dioxide 27 mmol/L (20-31)
[2024-03-11 06:48] LABS: Calcium 9.4 mg/dL (8.7-10.4); Chloride 96 mmol/L (98-107); Potassium 3.5 mmol/L (3.5-5.1); Sodium 130 mmol/L (136-145)
[2024-03-11 06:52] LABS: Glucose 100 mg/dL (74-106)
[2024-03-11 06:53] LABS: Blood Urea Nitrogen 14 mg/dL (9-23); Magnesium 2.1 mg/dL (1.6-2.6)
[2024-03-11] MEDS: amLODIPine BESYLATE 5 MG TAB PO SCH (10:56)
--- NOTE | 2024-03-11 12:47 | DVHPN2 ---
Subjective She is feeling better Sodium is up to 130 Changes from previous H/P or p: Changes Eyes: No Pain, No Vision change, No Conjunctivae inflammation, No Eyelid inflammation, No Other, No Redness ENT: No Ear pain, No Ear discharge, No Nose pain, No Nose discharge, No Nose congestion, No Mouth pain, No Mouth swelling, No Throat pain, No Throat swelling; Other ([place] Cardiovascular: No Chest Pain, No Palpitations, No Orthopnea, No Paroxysmal Noc. Dyspnea, No Edema, No Lt Headedness, No Other Respiratory: Cough; No Dry, No Shortness of breath, No SOB with excertion, No Wheezing, No Hemoptysis, No Pleuritic Pain, No Sputum, No Other Gastrointestinal: Nausea; No Vomiting; Abdominal Pain, Diarrhea; No Constipation, No Melena, No Hematochezia, No Other Genitourinary: No Dysuria, No Frequency, No Incontinence, No Hematuria, No Retention, No Other Musculoskeletal: No other, No neck pain, No shoulder pain, No arm pain, No back pain, No hand pain, No leg pain, No foot pain Skin: No Rash, No Lesions, No Jaundice, No Bruising, No Other Objective Vitals Vital Signs Date Time Temp Pulse Resp B/P (MAP) Pulse Ox O2 Delivery O2 Flow Rate FiO2 03/11/24 10:56 133/78 03/11/24 10:55 86 03/11/24 08:31 98 Room Air 0.0 03/11/24 08:31 21 03/11/24 08:00 98.3 18 98.3 Intake/Output Intake and Output 03/11/24 07:00 Intake Total 1000 ml Output Total 600 ml Balance 400 ml Intake Oral 800 ml IV Total 200 ml Output Urine Total 600 ml General Appearance: Alert, Oriented X3, Cooperative, No acute distress Lungs: Clear to auscultation, Normal air movement Cardiovascular: Regular rate, Normal S1, Normal S2, No murmurs Abdomen: Normal bowel sounds, Soft, No tenderness Extremities: No edema Medications Current Medications Medications Dose Ordered Sig/Neli Route Start Time Stop Time Status Last Admin Dose Admin Sodium Chloride 1,000 ml @ 100 mls/hr Q10H IV 03/09/24 09:15 03/11/24 08:46 100 MLS/HR Ondansetron HCl 4 mg Q4HP PRN IV 03/09/24 09:15 03/11/24 08:46 4 MG Enoxaparin Sodium 40 mg DAILY SC 03/09/24 10:00 Acetaminophen 650 mg Q6HP PRN PO 03/09/24 09:15 03/10/24 13:14 650 MG Nitroglycerin 0.4 mg Q5MINP PRN SL 03/09/24 09:15 Oseltamivir Phosphate 75 mg Q12HR PO 03/09/24 10:00 03/14/24 09:59 03/11/24 10:55 75 MG Lorazepam 0.5 mg BIDPRN PRN PO 03/09/24 09:45 03/09/24 12:37 0.5 MG Metoprolol Succinate 50 mg DAILY PO 03/09/24 10:00 03/11/24 10:55 50 MG Pantoprazole Sodium 40 mg DAILY PO 03/09/24 10:00 03/11/24 11:12 40 MG Sucralfate 1 gm QIDACHS PO 03/09/24 11:30 03/11/24 10:56 1 GM Hydrochlorothiazide 25 mg DAILY PO 03/10/24 10:00 03/11/24 10:56 25 MG Albuterol 2.5 mg Q4HPRN PRN NEB 03/09/24 10:30 Ipratropium [place] 0.5 mg Q4HPRN PRN NEB 03/09/24 10:30 Hydralazine HCl 10 mg Q6HP PRN IV 03/09/24 10:45 03/09/24 21:30 10 MG Amlodipine Besylate 5 mg DAILY PO 03/11/24 10:00 03/11/24 10:56 5 MG Gabapentin 300 mg BID PO 03/10/24 22:00 03/11/24 10:55 300 MG Laboratory Results Laboratory Tests 03/11/24 05:46 Chemistry Test 03/11/24 05:46 Calcium Level 9.4 mg/dL (8.7-10.4) Magnesium Level 2.1 mg/dL (1.6-2.6) Urinalysis Test 03/10/24 07:00 Urine Color Colorless (Yellow) Urine Clarity Clear (Clear) Urine pH 7.0 (5.0-9.0) Urine Specific [place] 1.003 (1.001-1.035) Urine Protein Trace (Negative) H Urine Ketones Negative (Negative) Urine Blood Negative /uL (Negative) Urine Nitrite Negative (Negative) Urine Bilirubin Negative (Negative) Urine Urobilinogen Normal mg/dL (Negative) Urine Leukocyte Esterase Negative /uL (Negative) Urine RBC <1 /hpf (0 - 4) Urine WBC None seen /hpf (0 - 5) Urine Squamous Epithelial Cells None seen /hpf (<5) Urine Bacteria None seen /hpf (None Seen) Urine Glucose Normal mg/dL (Normal) Assessment/Plan Assessment/Plan Acute influenza A Nausea and vomiting and diarrhea, resolved COPD Anemia Hypertension Anxiety Hypokalemia Hyponatremia Leukopenia Plan 03/10/2024: Resume the diet Continue IV fluids normal saline Tamiflu 75 mg twice a day Continue Protonix and Carafate Lorazepam p.r.n. for anxiety Metoprolol XL 50 mg daily Amlodipine 5 mg daily Hydrochlorothiazide 25 mg daily Neurontin 300 mg twice a day Full code Advance directives discussed for 20 minutes 03/11/2024: Hyponatremia: Normal saline Influenza A: Tamiflu Resume Home medications Weakness: Physical therapy Plan discussed with: Patient My Orders Orders - WILLIAM MOFFETT MD Procedure Category Date Status Time Amlodipine Tablet PHA 03/11/24 In Process (Norvasc Tablet) 10:00 Gabapentin Capsule PHA 03/10/24 In Process (Neurontin Capsule) 22:00 Date of Service: Mar 11, 2024 Billing Provider: WILLIAM MOFFETT MD Common Visit Codes: [id number] INP/OBS CARE(HIGH) WILLIAM MOFFETT MD Mar 11, 2024 12:47
[2024-03-11] MEDS: SODIUM CHLORIDE 0.9% 1,000 ML IV SCH (15:45)
[2024-03-12 01:00] VITALS: BP 114/64; PULSE 86; RESP 18; TEMP 98; O2SAT 94
[2024-03-12 01:58] VITALS: BP 114/64; PULSE 86; RESP 18; O2SAT 94
[2024-03-12 05:00] VITALS: BP 128/78; PULSE 77; RESP 18; TEMP 97.6; O2SAT 94
[2024-03-12 08:00] VITALS: PULSE 71; PULSE 74; RESP 16; O2SAT 95
[2024-03-12] MEDS ORDERED: TAMIFLU PO (09:15)
[2024-03-12] MEDS ORDERED: ZOFR4T PO (09:15)
[2024-03-12 09:28] VITALS: BP 102/71; PULSE 71; RESP 16; TEMP 98.1; O2SAT 95
[2024-03-12] MEDS ORDERED: SUCR1TAB31 OR (09:32)
[2024-03-12 11:47] LABS: Chloride 101 mmol/L (98-107); Potassium 3.7 mmol/L (3.5-5.1)
[2024-03-12 11:48] LABS: Anion Gap 5 (5-15); Calcium 9.4 mg/dL (8.7-10.4); Carbon Dioxide 27 mmol/L (20-31)
--- NOTE | 2024-03-12 11:48 | DVHDS2 ---
Discharge Summary Date of Admission Mar 09, 2024 at 09:15 Date of Discharge: Mar 12, 2024 Labs/Diagnostic Data: Laboratory Results Test 03/12/24 11:22 03/11/24 05:46 03/10/24 07:00 03/10/24 05:58 White Blood Count 3.3 10^3/uL (4.4-10.8) Red Blood Count 4.62 10^6/uL (4.0-5.20) Hemoglobin 14.8 g/dL (12.2-16.2) Hematocrit 42.9 % (36.0-46.0) Mean Corpuscular Volume 93.0 fL (80.0-100.0) Mean Corpuscular Hemoglobin 32.1 pg (28.0-32.0) Mean Corpuscular Hemoglobin Concent 34.5 g/dL (32.0-36.0) Red Cell Distribution Width 13.4 % (11.8-14.3) Platelet Count 170 10^3/uL (140-450) Mean Platelet Volume 7.8 fL (6.9-10.8) Neutrophils (%) (Auto) 49.9 % (37.0-80.0) Lymphocytes (%) (Auto) 34.3 % (10.0-50.0) Monocytes (%) (Auto) 15.1 % (0.0-12.0) Eosinophils (%) (Auto) 0.4 % (0.0-7.0) Basophils (%) (Auto) 0.3 % (0.0-2.0) Neutrophils # (Auto) 1.7 10 ^3/uL (1.6-8.6) Lymphocytes # (Auto) 1.1 10 ^3/uL (0.4-5.4) Monocytes # (Auto) 0.5 10 ^3/uL (0-1.3) Eosinophils # (Auto) 0 10 ^3/uL (0-0.8) Basophils # (Auto) 0 10 ^3/uL (0-0.2) Nucleated Red Blood Cells 0.3 % Magnesium Level 2.1 mg/dL (1.6-2.6) Urine Color Colorless (Yellow) Urine Clarity Clear (Clear) Urine pH 7.0 (5.0-9.0) Urine Specific [place] 1.003 (1.001-1.035) Urine Protein Trace (Negative) Urine Ketones Negative (Negative) Urine Blood Negative /uL (Negative) Urine Nitrite Negative (Negative) Urine Bilirubin Negative (Negative) Urine Urobilinogen Normal mg/dL (Negative) Urine Leukocyte Esterase Negative /uL (Negative) Urine RBC <1 /hpf (0 - 4) Urine WBC None seen /hpf (0 - 5) Urine Squamous Epithelial Cells None seen /hpf (<5) Urine Bacteria None seen /hpf (None Seen) Urine Glucose Normal mg/dL (Normal) Total Bilirubin 0.8 mg/dL (0.2-1.0) Aspartate Amino Transferase (AST) 65 U/L (13-40) Alanine Aminotransferase (ALT) 46 U/L (7-40) Alkaline Phosphatase 107 U/L (46-116) Total Protein 6.4 g/dL (5.7-8.2) Albumin 4.1 g/dL (3.2-4.8) Test 03/09/24 03:55 03/09/24 03:25 Influenza Type A Antigen Positive (Negative) Influenza Type B Antigen Negative (Negative) SARS-CoV-2 Antigen (Rapid) Negative (NEGATIVE) Lactic Acid Level 1.4 mmol/L (0.4-2.0) Troponin I High Sensitivity 51 ng/L (</=34) B-Type Natriuretic Peptide 145.58 pg/mL (0-100) Lipase 42 U/L (12-53) Thyroid Stimulating Hormone (TSH) 2.22 uIU/mL (0.55-4.78) Other Laboratory Tests 03/11/24 05:46 Brief Hx & Hospital Course: Final diagnoses: Acute influenza A Nausea and vomiting and diarrhea, resolved COPD Anemia Hypertension Anxiety Hypokalemia Hyponatremia Leukopenia 78-year-old female came with symptoms of abdominal pain and weakness and cough, she was diagnosed with influenza a and hyponatremia She was given IV fluids with normal saline which corrected her hyponatremia She felt better overall She started eating better She was given Tamiflu Today she is doing much better and therefore she will be discharged home Continue Tamiflu for a total of 5 days Continue the other home medications Home health was ordered Follow up with the primary care physician soon as possible Condition at Discharge: Stable Final Diagnosis/Problems List Acute influenza A Nausea and vomiting and diarrhea, resolved COPD Anemia Hypertension Anxiety Hypokalemia Hyponatremia Leukopenia Discharge Disposition: Home with Health Services SNF Discharge Will this Physician continue t: No Discharge Instruct/Medications Diet: Cardiac 2g Na,low cholest Activity: No Restrictions, As Tolerated Follow Up/Referral: PCP MELANIA Medications: Tamiflu 75 mg bid x 2 more days Zofran prn Resume home meds Discharge Statement: "Patient was advised to return to the ER or call 911 if any headaches, dizziness, shortness of breath, chest pain, abdominal pain, bleeding, fevers, or worsening of medical condition. Patient was counseled about treatment plan, medications, possible side effects, patientverbalized understanding. All questions were answered to the best of my ability. This discharge took greater then 30 minutes in planning, reviewing documentation, counseling the patient, and discussing with other team members." ASSESSMENT ASSESSMENT Assessment Acute influenza A Nausea and vomiting and diarrhea, resolved COPD Anemia Hypertension Anxiety Hypokalemia Hyponatremia Leukopenia Date of Service: Mar 12, 2024 Billing Provider: WILLIAM MOFFETT MD Common Visit Codes: [id number] DISCH DAY >30min WILLIAM MOFFETT MD Mar 12, 2024 11:48
[2024-03-12 11:53] LABS: Blood Urea Nitrogen 12 mg/dL (9-23)
[2024-03-12 12:08] LABS: Sodium 133 mmol/L (136-145)
[2024-03-12 12:09] LABS: Glucose 108 mg/dL (74-106)
== END 2024-03-12 14:45 | disposition home health service (06) | DRG 194 ==
LOC: EDBD 03:08 → ER 03:08 → TELE 09:15 → TELE-CENTR 17:32
PROVIDERS: ATTEND Internal Medicine Geriatric Medicine
DX: J10.1 Influenza due to other identified influenza virus with other respiratory manifestations (principal); E87.1 Hypo-osmolality and hyponatremia; D64.9 Anemia, unspecified; I48.91 Unspecified atrial fibrillation; J44.9 Chronic obstructive pulmonary disease, unspecified; E87.6 Hypokalemia; Z20.822 Contact with and (suspected) exposure to COVID-19; F41.9 Anxiety disorder, unspecified; D72.819 Decreased white blood cell count, unspecified; E87.8 Other disorders of electrolyte and fluid balance, not elsewhere classified; I10 Essential (primary) hypertension; Z88.5 Allergy status to narcotic agent; Z90.710 Acquired absence of both cervix and uterus; Z82.5 Family history of asthma and other chronic lower respiratory diseases
CPT/HCPCS: 36415; 71045; 74176; 80048; 80053; 81001; 83605; 83690; 83735; 83880; 84443; 84484; 85025; 87426; 87804; 93005; G0378; J2405